=== PATIENT | male | born 1940 | race Caucasian/White ===

== ENCOUNTER 2019-11-09 07:54 | Outpatient (CLI) | payer MEDICARE, SELFPAY | END 2019-11-09 07:55 | disposition home or self-care (01) | LOC: WOUND 07:57 | PROVIDERS: Family Provider Nurse Practitioner Family; Visit Provider Surgery | DX: E11.622 Type 2 diabetes mellitus with other skin ulcer (principal); L97.822 Non-pressure chronic ulcer of other part of left lower leg with fat layer exposed | CPT/HCPCS: 11042; 11045; G0463 ==

== ENCOUNTER 2019-11-12 13:50 | Outpatient (CLI) | payer MEDICARE, SELFPAY | END 2019-11-12 13:51 | disposition home or self-care (01) | LOC: WOUND 13:52 | PROVIDERS: Family Provider Nurse Practitioner Family; Visit Provider Emergency Medicine | DX: Z51.89 Encounter for other specified aftercare (principal) | CPT/HCPCS: 29581 ==

== ENCOUNTER 2019-11-15 14:09 | Outpatient (CLI) | payer MEDICARE, SELFPAY | END 2019-11-15 14:10 | disposition home or self-care (01) | LOC: WOUND 14:10 | PROVIDERS: Family Provider Nurse Practitioner Family; Visit Provider Emergency Medicine | DX: E11.622 Type 2 diabetes mellitus with other skin ulcer (principal); L97.822 Non-pressure chronic ulcer of other part of left lower leg with fat layer exposed | CPT/HCPCS: 11042; 11045 ==

== ENCOUNTER 2019-11-21 14:59 | Outpatient (CLI) | payer MEDICARE, SELFPAY ==
--- NOTE | 2019-11-21 15:05 | USCV_ITS ---
Brennon Dueñas Age: 79 Gender: M : 1940 Exam Date: 11/21/2019 15:29 Ordering Phys: Krzysztof Goldsmith MD Technologist: CALIXTO SIDDIQI Exam Location: [facility] [place] Indication: HISTORY: left leg non healing ulcer PROCEDURES: Bilateral duplex Venous Insufficiency study of the Deep and Superficial systems was carried out according to usual protocol with the patient in supine positon for deep system and dependent position for the superficial system. FINDINGS: Negative for DVT and superficial thrombus. No reflux noted in right or left leg. vessel diameters are noted above. PTV not scanned on left due to bandages in place CONCLUSIONS No evidence of DVT in the above-mentioned identifiable veins. No significant venous reflux was noted either in the superficial or deep veins Venous dimensions and the depth from the surface are as mentioned above Dr Waldo Elise MD [facility] (Electronically Signed) Final Date: 21 November 2019 20:14 S
== END 2019-11-21 15:00 | disposition home or self-care (01) ==
LOC: RAD 15:03
PROVIDERS: Family Provider Nurse Practitioner Family; Visit Provider Surgery
DX: M79.605 Pain in left leg (principal); L97.929 Non-pressure chronic ulcer of unspecified part of left lower leg with unspecified severity
CPT/HCPCS: 93970

== ENCOUNTER 2019-11-22 13:05 | Outpatient (CLI) | payer MEDICARE, SELFPAY | END 2019-11-22 13:06 | disposition home or self-care (01) | LOC: WOUND 13:09 | PROVIDERS: Family Provider Nurse Practitioner Family; Visit Provider Nurse Practitioner Family | DX: E11.622 Type 2 diabetes mellitus with other skin ulcer (principal); L97.822 Non-pressure chronic ulcer of other part of left lower leg with fat layer exposed; I73.9 Peripheral vascular disease, unspecified | CPT/HCPCS: 11042; 93923 ==

== ENCOUNTER 2019-11-22 14:01 | Outpatient (CLI) | payer MEDICARE, SELFPAY ==
--- NOTE | 2019-11-22 14:09 | USCV_ITS ---
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
== END 2019-11-22 14:02 | disposition home or self-care (01) ==
LOC: RAD 14:06
PROVIDERS: PCP Nurse Practitioner Family; Visit Provider Surgery
DX: I73.9 Peripheral vascular disease, unspecified (principal)
CPT/HCPCS: 93923

== ENCOUNTER 2019-11-29 09:10 | Outpatient (CLI) | payer MEDICARE, SELFPAY | END 2019-11-29 09:11 | disposition home or self-care (01) | LOC: WOUND 09:13 | PROVIDERS: PCP Nurse Practitioner Family; Visit Provider Emergency Medicine | DX: E11.622 Type 2 diabetes mellitus with other skin ulcer (principal); L97.822 Non-pressure chronic ulcer of other part of left lower leg with fat layer exposed | CPT/HCPCS: 11042 ==

== ENCOUNTER 2019-12-06 09:57 | Outpatient (CLI) | payer MEDICARE, SELFPAY | END 2019-12-06 09:58 | disposition home or self-care (01) | LOC: WOUND 10:00 | PROVIDERS: PCP Nurse Practitioner Family; Visit Provider Thoracic Surgery (Cardiothoracic Vascular Surgery) | DX: E11.621 Type 2 diabetes mellitus with foot ulcer (principal); L97.822 Non-pressure chronic ulcer of other part of left lower leg with fat layer exposed; I87.2 Venous insufficiency (chronic) (peripheral) | CPT/HCPCS: 29581 ==

== ENCOUNTER 2019-12-13 08:00 | Outpatient (CLI) | payer MEDICARE, SELFPAY | END 2019-12-13 08:01 | disposition home or self-care (01) | LOC: WOUND 08:01 | PROVIDERS: PCP Nurse Practitioner Family; Visit Provider Nurse Practitioner Family | DX: E11.622 Type 2 diabetes mellitus with other skin ulcer (principal); L97.821 Non-pressure chronic ulcer of other part of left lower leg limited to breakdown of skin | CPT/HCPCS: 99212; A6545 ==

== ENCOUNTER 2019-12-26 10:34 | Outpatient (CLI) | payer MEDICARE, SELFPAY | END 2019-12-26 10:35 | disposition home or self-care (01) | LOC: WOUND 10:35 | PROVIDERS: PCP Nurse Practitioner Family; Visit Provider Emergency Medicine | DX: I87.2 Venous insufficiency (chronic) (peripheral) (principal); L97.822 Non-pressure chronic ulcer of other part of left lower leg with fat layer exposed; S90.512A Abrasion, left ankle, initial encounter; X58.XXXA Exposure to other specified factors, initial encounter | CPT/HCPCS: 11042; 11045; 87070; 87077; 87176; 87186; 87205 ==

== ENCOUNTER 2019-12-28 13:31 | Outpatient (CLI) | payer MEDICARE, SELFPAY | END 2019-12-28 13:32 | disposition home or self-care (01) | LOC: WOUND 13:32 | PROVIDERS: PCP Nurse Practitioner Family; Visit Provider Surgery | DX: I87.2 Venous insufficiency (chronic) (peripheral) (principal); L97.822 Non-pressure chronic ulcer of other part of left lower leg with fat layer exposed | CPT/HCPCS: 29581 ==

== ENCOUNTER 2020-01-02 14:53 | Outpatient (CLI) | payer MEDICARE, SELFPAY | END 2020-01-02 14:54 | disposition home or self-care (01) | LOC: WOUND 14:54 | PROVIDERS: PCP Nurse Practitioner Family; Visit Provider Emergency Medicine | DX: E11.622 Type 2 diabetes mellitus with other skin ulcer (principal); L97.822 Non-pressure chronic ulcer of other part of left lower leg with fat layer exposed; L97.522 Non-pressure chronic ulcer of other part of left foot with fat layer exposed | CPT/HCPCS: 11042; 11045 ==

== ENCOUNTER 2020-01-09 13:50 | Outpatient (CLI) | payer MEDICARE, SELFPAY | END 2020-01-09 13:51 | disposition home or self-care (01) | LOC: WOUND 13:51 | PROVIDERS: PCP Nurse Practitioner Family; Visit Provider Emergency Medicine | DX: E11.622 Type 2 diabetes mellitus with other skin ulcer (principal); L97.822 Non-pressure chronic ulcer of other part of left lower leg with fat layer exposed; E11.621 Type 2 diabetes mellitus with foot ulcer; L97.522 Non-pressure chronic ulcer of other part of left foot with fat layer exposed | CPT/HCPCS: 11042 ==

== ENCOUNTER 2020-01-14 09:25 | Outpatient (CLI) | payer MEDICARE, SELFPAY | END 2020-01-14 09:26 | disposition home or self-care (01) | LOC: WOUND 09:27 | PROVIDERS: PCP Nurse Practitioner Family; Visit Provider Emergency Medicine | DX: E11.622 Type 2 diabetes mellitus with other skin ulcer (principal); L97.822 Non-pressure chronic ulcer of other part of left lower leg with fat layer exposed; E11.621 Type 2 diabetes mellitus with foot ulcer; L97.522 Non-pressure chronic ulcer of other part of left foot with fat layer exposed | CPT/HCPCS: 11042; 87070; 87077; 87176; 87186; 87205; L3260 ==

== ENCOUNTER 2020-01-21 13:52 | Outpatient (CLI) | payer MEDICARE, SELFPAY | END 2020-01-21 13:53 | disposition home or self-care (01) | LOC: WOUND 13:52 | PROVIDERS: PCP Nurse Practitioner Family; Visit Provider Nurse Practitioner Family | DX: E11.622 Type 2 diabetes mellitus with other skin ulcer (principal); L97.822 Non-pressure chronic ulcer of other part of left lower leg with fat layer exposed; E11.621 Type 2 diabetes mellitus with foot ulcer; L97.522 Non-pressure chronic ulcer of other part of left foot with fat layer exposed | CPT/HCPCS: 29581 ==

== ENCOUNTER 2020-01-28 09:31 | Outpatient (CLI) | payer MEDICARE, SELFPAY | END 2020-01-28 09:32 | disposition home or self-care (01) | LOC: WOUND 09:32 | PROVIDERS: PCP Nurse Practitioner Family; Visit Provider Nurse Practitioner Family | DX: E11.621 Type 2 diabetes mellitus with foot ulcer (principal); L97.522 Non-pressure chronic ulcer of other part of left foot with fat layer exposed | CPT/HCPCS: 11042 ==

== ENCOUNTER 2020-02-04 08:52 | Outpatient (CLI) | payer MEDICARE, SELFPAY | END 2020-02-04 08:53 | disposition home or self-care (01) | LOC: WOUND 08:53 | PROVIDERS: PCP Nurse Practitioner Family; Visit Provider Nurse Practitioner Family | DX: E11.621 Type 2 diabetes mellitus with foot ulcer (principal); L97.521 Non-pressure chronic ulcer of other part of left foot limited to breakdown of skin | CPT/HCPCS: 11042 ==

== ENCOUNTER 2020-02-11 08:51 | Outpatient (CLI) | payer MEDICARE, SELFPAY | END 2020-02-11 08:52 | disposition home or self-care (01) | LOC: WOUND 08:52 | PROVIDERS: PCP Nurse Practitioner Family; Visit Provider Nurse Practitioner Family | DX: E11.621 Type 2 diabetes mellitus with foot ulcer (principal); L97.522 Non-pressure chronic ulcer of other part of left foot with fat layer exposed | CPT/HCPCS: 97597 ==

== ENCOUNTER 2020-02-21 08:40 | Outpatient (RCR) | payer MEDICARE, SELFPAY | END 2020-03-01 23:59 | disposition home or self-care (01) | LOC: WOUND 08:40 | PROVIDERS: PCP Nurse Practitioner Family; Visit Provider Nurse Practitioner Family | DX: E11.621 Type 2 diabetes mellitus with foot ulcer (principal); L97.522 Non-pressure chronic ulcer of other part of left foot with fat layer exposed; L03.116 Cellulitis of left lower limb | CPT/HCPCS: 11042 ==

== ENCOUNTER 2020-02-21 10:24 | Outpatient (CLI) | payer MEDICARE, SELFPAY ==
--- NOTE | 2020-02-21 10:42 | XR_ITS ---
WS: [id number] CHEST 2 VIEWS HISTORY: COUGH , PNEUMONIA COMPARISON: 08/06/2010 Lungs: Hyperinflated lungs with benign granuloma on the LEFT. There is very minimal new interstitial thickening at the LEFT lung base. Cardiac size: Normal. Mediastinum/Aorta: Pulmonary arteries are dilated with rapid tapering. Mild atherosclerosis aorta. Bones: Mild anterior wedging of several thoracic vertebral bodies at the thoracolumbar junction. Exac t numbers cannot be determined. XR/XR chest 2V* [id number] IMPRESSION: 1. New minimal interstitial thickening at the LEFT base may be an area of pneu monitis. 2. Pulmonary hypertension. 3. Chronic emphysema.
== END 2020-02-21 10:25 | disposition home or self-care (01) ==
LOC: RADWPI 10:32
PROVIDERS: Family Provider Nurse Practitioner Family; PCP Nurse Practitioner Family; Visit Provider Nurse Practitioner Family
DX: R05 Cough (principal); I27.20 Pulmonary hypertension, unspecified; J43.9 Emphysema, unspecified
CPT/HCPCS: 71046

== ENCOUNTER 2020-02-22 10:14 | Outpatient (CLI) | payer MEDICARE, SELFPAY ==
--- NOTE | 2020-02-22 10:22 | XR_ITS ---
WS: [id number] Thoracic spine, 3 views, 02/22/2020 Clinical Data: OSTEOPOROSIS Comparison: None. Findings: There is wedging of multiple thoracic vertebral bodies, probably all the vertebral bodies from T6 thr ough T12 with the exception of T8. However the loss of vertebral body height is central and approxim ately 25% or less. This implies these are chronic fractures rather than acute. Vertebral bodies T1 an d T2 are not well seen. 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 The disc heights are normal. The paravertebral regions are unremarkable. Diffuse osteoporosis is present. XR/XR thoracic spine 2V [id number] Impression: 1. Multiple thoracic vertebral bodies which have lost height but no definite ac willem thoracic vertebral body fracture is seen. 2. Diffuse osteoporosis.
--- NOTE | 2020-02-22 10:22 | XR_ITS ---
WS: [id number] Lumbar spine, AP and lateral, 02/22/2020 Clinical Data: OSTEOPOROSIS Comparison: None. Findings: The patient has vertebroplasty cement in L2 and L3. There is loss of vertebral body height of L1, L2 and L3. There is also loss of vertebral body height of the lower thoracic vertebral bodies. The disc heights are normal. No definite new compression fractures are seen. Diffuse osteoporosis is noted. Degenerative change of the T11-T12 and L1-L3 vertebral bodies is present. The transverse processes and SI joints show no ab normalities. There is a large amount of fecal material throughout the colon. There is calcification o f the wall of the abdominal aorta but no aneurysm. XR/XR lumbar spine 2-3V* [id number] Impression: 1. Multiple lower thoracic and lumbar vertebral body compression fractures, but no definite new fracture is seen. 2. Vertebroplasty cement in the vertebral bodies L2 and L3. 3. Diffuse osteoporosis.
== END 2020-02-22 10:15 | disposition home or self-care (01) ==
LOC: RADWPI 10:19
PROVIDERS: Family Provider Nurse Practitioner Family; PCP Nurse Practitioner Family; Visit Provider Nurse Practitioner Family
DX: M81.0 Age-related osteoporosis without current pathological fracture (principal)
CPT/HCPCS: 72070; 72100

== ENCOUNTER 2020-02-28 08:57 | Outpatient (CLI) | payer MEDICARE, SELFPAY | END 2020-02-28 08:58 | disposition home or self-care (01) | LOC: WOUND 08:58 | PROVIDERS: Family Provider Nurse Practitioner Family; PCP Nurse Practitioner Family; Visit Provider Nurse Practitioner Family | DX: E11.621 Type 2 diabetes mellitus with foot ulcer (principal); L97.522 Non-pressure chronic ulcer of other part of left foot with fat layer exposed | CPT/HCPCS: 11042 ==

== ENCOUNTER 2020-03-06 09:15 | Outpatient (CLI) | payer MEDICARE, SELFPAY ==
--- NOTE | 2020-03-06 | XR_ITS ---
WS: [id number] Left foot, 03/06/2020 Clinical Data: PAIN, REDNESS, NON HEALING ULCER Comparison: None. Findings: There is an erosion of the ungual tuft of the distal phalanx of the left great toe. There is loss of soft tissue and bone. This is suspicious for osteomyelitis. The remainder of the phalanges show no ab normalities. Tarsal bones and metatarsals are normal. There is a plantar spur and Achilles spur. The posterior tibial artery and anterior tibial arteries show calcifications in the noriega consistent with diabetes. No fractures or dislocations are seen. XR/XR foot LT min 3V* [id number] Impression: Erosion of the distal phalanx of the left great toe suspicious for osteomyeliti s.
== END 2020-03-06 09:16 | disposition home or self-care (01) ==
LOC: WOUND 09:16
PROVIDERS: Family Provider Nurse Practitioner Family; PCP Nurse Practitioner Family; Visit Provider Nurse Practitioner Family
DX: R52 Pain, unspecified (principal); L53.9 Erythematous condition, unspecified; E11.621 Type 2 diabetes mellitus with foot ulcer; L97.526 Non-pressure chronic ulcer of other part of left foot with bone involvement without evidence of necrosis
CPT/HCPCS: 11042; 73630

== ENCOUNTER 2020-03-13 07:09 | Outpatient (CLI) | payer MEDICARE, SELFPAY ==
--- NOTE | 2020-03-13 07:14 | MR_ITS ---
WS: [id number] MRI LUMBAR SPINE NONCONTRAST TECHNIQUE: Sagittal T1, T2 and STIR imaging. Axial T1 and T2 imaging. CLINICAL INFORMATION: LOW BACK PAIN;SPINAL STENOSIS LUMBAR REGION W/NEUROGENIC CLA COMPARISON: None. FINDINGS: Mild lumbar curve. Chronic compression fractures L2 and L3 with vertebroplasty changes. Acute biconca ve compression at L5 with edema. Loss of approximately 40% vertebral body height. Minimal retropulsio n posterior superior cortex. Chronic anterior wedging with compression at T12 with mild chronic retro pulsion of the posterior superior cortex. L1-L2: Mild disc bulging with slight narrowing of the subarticular recess. Moderate facet arthropathy . Foramen are patent. L2-L3: Disc osteophyte complex with endplate ridging. Narrowing subarticular recess bilaterally with slight impingement traversing right L3 nerve root. Mild central canal stenosis. Moderate facet arthro elva. Mild right foraminal narrowing. L3-L4: Mild disc bulging with osteophytic ridging. Mild to moderate central canal stenosis. Impingeme nt traversing L4 nerve roots bilaterally. Mild left greater than right foraminal narrowing. Moderate facet arthropathy. L4-L5: Mild disc bulging in combination with facet arthropathy and ligamentum flavum hypertrophy resu lts in severe central canal stenosis. Impingement on the traversing L5 nerve roots bilaterally. Moder ate facet arthropathy. Moderate left and mild right foraminal narrowing. L5-S1: Tiny central and right pericentral disc protrusion impinges the traversing right greater than left S1 nerve roots in the subarticular recess. Mild left greater than right foraminal narrowing. Sma ll central disc protrusion at C6-7 with mild central canal stenosis. Visualized pelvic bony structures: Normal. Paravertebral soft tissues: Normal. MR/MR lumbar spine wo con* [id number] IMPRESSION: 1. Acute biconcave compression L5 vertebral body with loss of 40% vertebral christina dy height and diffuse edema. Mild retropulsion of the posterior superior cortex . 2. Severe central canal stenosis L4-5 due to disc bulging with facet arthropat hy and ligamentum flavum hypertrophy. Impingement traversing L5 nerve roots kira aterally. 3. Chronic compression with anterior wedging at T12, L2, and L3. Vertebroplast y changes at L2 and L3. 4. Mild to moderate central canal stenosis L3-4 due to disc bulging with facet arthropathy. Impingement traversing L4 nerve roots left greater than right. 5. Central and right pericentral disc protrusion L5-S1 impinges the traversing right S1 nerve root. 6. Moderate left foraminal narrowing L4-5. 7. Small central disc protrusion C6-7 with mild central canal stenosis seen on the head of [employer] [facility].
== END 2020-03-13 07:10 | disposition home or self-care (01) ==
PROVIDERS: Family Provider Nurse Practitioner Family; PCP Nurse Practitioner Family
DX: M48.062 Spinal stenosis, lumbar region with neurogenic claudication (principal); M48.061 Spinal stenosis, lumbar region without neurogenic claudication; S32.050A Wedge compression fracture of fifth lumbar vertebra, initial encounter for closed fracture; M50.223 Other cervical disc displacement at C6-C7 level; M51.27 Other intervertebral disc displacement, lumbosacral region; X58.XXXA Exposure to other specified factors, initial encounter
CPT/HCPCS: 72148

== ENCOUNTER 2020-03-13 08:29 | Outpatient (CLI) | payer MEDICARE, SELFPAY | END 2020-03-13 08:30 | disposition home or self-care (01) | LOC: WOUND 08:30 | PROVIDERS: Family Provider Nurse Practitioner Family; PCP Nurse Practitioner Family; Visit Provider Nurse Practitioner Family | DX: E11.621 Type 2 diabetes mellitus with foot ulcer (principal); L97.524 Non-pressure chronic ulcer of other part of left foot with necrosis of bone | CPT/HCPCS: 11042 ==

== ENCOUNTER → 2020-03-17 13:24 | Outpatient (BNVA) | payer MEDICARE, SELFPAY | PROVIDERS: Family Provider Nurse Practitioner Family; PCP Nurse Practitioner Family; Visit Provider Podiatrist Foot & Ankle Surgery | DX: M79.672 Pain in left foot (principal); M86.8X7 Other osteomyelitis, ankle and foot | CPT/HCPCS: 73630; 87635 ==

== ENCOUNTER 2020-03-19 05:33 | Day surgery (SDC) | payer MEDICARE, SELFPAY ==
[2020-03-19 06:11] VITALS: BP 134/79; PULSE 83; RESP 18; TEMP 37.1; O2SAT 97
[2020-03-19] MEDS: sodium chloride 0.9% 1,000 ML 30 ML IV (06:23)
[2020-03-19 06:25] LABS: Glucose Point of Care 126 mg/dL (70-110)
--- NOTE | 2020-03-19 06:37 | ANES.PREANE2 ---
Pre-Anesthetic Assessment Pre-Anesthetic Assessment: Height/Weight: Height 1.85 m Weight 89.358 kg Temp Pulse Resp BP Pulse Ox 98.8 F 83 18 134/79 97 03/19/20 06:11 03/19/20 06:11 03/19/20 06:11 03/19/20 06:11 03/19/20 06:11 Preop Diagnosis: Osteomyelitis left hallux Proposed Procedure: Operation Date: 03/19/20 07:00 Proposed Procedures p Partial Amputation Left Hallux 11997 L97.524(Left) - Jovani Huerta DPM Familial anesthetic complications: None Was Beta Lauren taken within 24 hours: N/A Last intake: Intake Last Liquid Date 03/18/20 Last Liquid Time 20:00 Last Solid Date 03/18/20 Last Solid Time 20:00 Social: Social History: No alcohol and No tobacco Comment: Former smoker Exam: Pre-Anes Outpt Exam: alert, oriented x 3 and regular rate & rhythm Additional Exam Findings (including area of procedure): coarse breath sounds b/l with occassional wheeze Airway: Cervical ROM: WNL MP: 3 Dentition: False Pulmonary: Pulmonary: COPD and Cough (Chronic cough with mucus production) Metabolic: Metabolic: DM Anesthetic Plan: ASA status: 3 Anesthesia: MAC Risk of > 500 ml blood loss (7ml/kg in children): No Meds/Allergies Current Medications: Current Medications Generic Name Dose Route Start Last Admin Trade Name Freq PRN Reason Stop Dose Admin Sodium Chloride 1,000 mls @ 30 ml s/hr 03/19/20 06:00 03/19/20 06:23 Sodium Chloride 0.9% IV 03/20/20 05:59 30 mls/hr .Q24H YARY Administration PFSH Anesthesia PFSH: Medical History COPD (chronic obstructive pulmonary disease) Diabetic polyneuropathy associated with type 2 diabetes mellitus Hypertension Venous insufficiency Social History (Updated 03/17/20 @ 13:37 by Gloria Peguero LPN) Smoking and tobacco status: former smoker Household members: none Marital status: / Data Anesthesia Other Labs: Laboratory Results - last 48 hr 03/19/20 06:20 POC Glucose 126 Cardiac Studies: No Data to Display
--- NOTE | 2020-03-19 06:39 | W.PM.OPSUD ---
Surgery/Procedure H&P Update DATE OF PROCEDURE: March 19, 2020 DATE H&P PERFORMED: 03/07/20 H&P UPDATE INFORMATION: I have reviewed H&P completed within last 30 days, I have examined patient prior to procedure, No changes to prior documentation and H&P is in [facility] [place] EMR on date indicated PREOP DIAGNOSIS: Osteomyelitis left hallux PLANNED PROCEDURE: Operation Date: 03/19/20 07:00 Proposed Procedures p Partial Amputation Left Hallux 00786 L97.524(Left) - Jovani Huerta DPM
--- NOTE | 2020-03-19 06:49 | P.OP_ITS ---
Operative Report Date of procedure: March 19, 2020 Pre-op Diagnosis: Osteomyelitis left hallux Post-op diagnosis: same Post-op Findings: Devitalized soft tissue and bone left hallux distal phalanx. Procedure Done: Partial Amputation Left Hallux Implants: 3-0 nylon and 4-0 nylon Specimens removed/disposition: Left distal hallux and distal phalanx sent to microbiology for Gram stain and culture Pathology: none sent Surgeon: Jovani Huerta D.P.M. Research Interviewer: Gómez Anesthesia: MAC Estimated blood loss: 10 mL Tourniquet time: No tourniquet utilized IV fluids: None Urine output: None Complications: None Findings: Devitalized soft tissue and bone left distal hallux Condition: stable Disposition: PACU Brief History: Patient [place] to podiatry clinic [place] [facility] [place] with concerns of osteomyelitis of the distal phalanx of the left hallux. Patient preferred not to go medicine and surgical debridement route he had concerns for PICC line over 6 weeks and preferred not to be treated with IV antibiotics. Recommended partial amputation of the left hallux secondary to osteomyelitis at the distal phalanx. Risks include pain, bleeding, numbness, infection, need for higher levels of amputation and antibiotics. Also risk for transfer pressure and transfer lesions. Procedure: Under mild sedation the patient was brought to the operating room and placed on the operating table in supine position. A timeout was performed. Anesthesia was then administered by the anesthesia service. Local anesthesia was injected by myself consisting of 30 cc of 0.5% Marcaine plain and a left White block fashion. Well-padded pneumatic tourniquet applied to the left ankle however this was never inflated or utilized throughout the duration of the procedure. Left lower extremity was scrubbed, prepped and draped utilizing normal aseptic technique. Attention was directed to the left distal hallux where a fishmouth incision was carried out distal to the hallux interphalangeal joint full-thickness down to bone and the distal phalanx of the left hallux was disarticulated at the interphalangeal joint sharply and passed from the operative field, this was sent to microbiology for Gram stain and culture. Incision site was irrigated with copious amounts of sterile saline solution. Head of the proximal phalanx was viable with appropriate color intensity, no purulent drainage encountered at this level there was healthy skin margins at this level, bleeders were ligated and cauterized as necessary. Extensor and flexor tendons transected at their proximal margin under traction. Further irrigation was performed with copious amounts of saline solution. Incision was closed with combination of 3-0 and 4-0 Vicryl simple interrupted sutures. Incision site was dressed as well as dorsal of the foot wound dressed with Adaptic, sterile 4 x 4, Kerlix and Lenard wrap as well as cast padding and Lenard wrap of the leg. Patient tolerated the procedure well and was transferred to the PACU with vital signs stable and vascular status intact. Following a period of postoperative monitoring he will be discharged home and is to remain limited weightbearing to the left foot with postop shoe at all times and keep his postoperative dressings clean, dry and intact, he is to elevate his left foot while at rest.
[2020-03-19 06:50] VITALS: PULSE 83; RESP 18; O2SAT 94
[2020-03-19 07:00] VITALS: PULSE 88
[2020-03-19 07:41] VITALS: BP 137/72; PULSE 80; RESP 18; TEMP 36.6; O2SAT 92
--- NOTE | 2020-03-19 07:55 | XR_ITS ---
WS: [id number] LEFT FOOT: 3 VIEW(S) TECHNIQUE: AP, oblique and lateral. HISTORY: post op COMPARISON: 03/17/2020 Interval removal distal phalanx first toe. Small erosion involving the proximal phalanx along its lat eral aspect. Normal tarsal/metatarsal alignment. Soft tissue edema surrounding the first toe at the amputation site. No air within the soft tissues. XR/XR foot LT min 3V* [id number] IMPRESSION: 1. Prior amputation distal phalanx first toe. 2. Persistent erosion at the articular surface of the proximal phalanx first t oe. Cannot completely exclude osteomyelitis but no change since 03/17/2020.
[2020-03-19 07:58] VITALS: BP 125/63; PULSE 78; RESP 18; O2SAT 97
--- NOTE | 2020-03-19 21:05 | ANE.PACU2 ---
Inpatient post-anesthesia follow up: Airway intact: Yes Vital signs: Temperature 97.9 F Pulse Rate 78 Respiratory Rate 18 Blood Pressure 125/63 Pulse Oximetry 97 Oxygen Delivery Me thod Room Air Oxygen Flow Rate Fraction of Inspir ed Oxygen Hydration adequate: Yes Nausea and vomiting: No Pain level: 2 Mental status: Baseline
--- NOTE | 2020-03-21 13:06 | XR_ITS ---
WS: [id number] SCREENING DEXA SCAN [employer] CLINICAL INFORMATION: WEDGE COMPRESSION FRACTURE OF FIFTH LUMBAR VERTEBRA, INITIAL COMPARISON: None. FINDINGS: Left femoral neck bone mineral density measures 0.702 g/cm2. This corresponds to a T score of -2.8 an d Z score of -1.7. Right femoral neck bone mineral density measures 0.777 g/cm2. This corresponds to a T score -2.3of an d Z score of -1.1. Mean femoral neck bone mineral density measures 0.739 g/cm2. This corresponds to a T score of -2.5 an d Z score of -1.4. XR/XR DEXA axial skeleton* [id number] IMPRESSION: Osteoporosis in the femoral necks. Patient's FRAX calculated 10 year probability for major osteoporotic fracture i s 13.1 % and osteoporotic hip fracture is 4.8%.
== END 2020-03-19 08:15 | disposition home or self-care (01) ==
LOC: OR 08:02 → RADWPI 03-21 13:19 → OR 05-01 11:13
PROVIDERS: PCP Nurse Practitioner Family; Visit Provider Podiatrist Foot & Ankle Surgery
PROC: (CPT 28825; principal; 2020-03-19 07:00)
DX: M86.8X7 Other osteomyelitis, ankle and foot (principal); J44.9 Chronic obstructive pulmonary disease, unspecified; E11.42 Type 2 diabetes mellitus with diabetic polyneuropathy; Z87.891 Personal history of nicotine dependence; Z79.4 Long term (current) use of insulin; I10 Essential (primary) hypertension
CPT/HCPCS: 28825; 12345; 36416; 73630; 77080; 82962; 87070; 87077; 87176; 87205; 94640; J0690; J2704; J3010; J3490; J7030; J7611; L3260

== ENCOUNTER 2020-03-21 09:00 | Outpatient (CLI) | payer MEDICARE, SELFPAY | END 2020-03-21 09:01 | disposition home or self-care (01) | LOC: RADWPI 05-01 11:12 | PROVIDERS: PCP Nurse Practitioner Family | DX: S32.050A Wedge compression fracture of fifth lumbar vertebra, initial encounter for closed fracture (principal); M81.6 Localized osteoporosis [Lequesne] | CPT/HCPCS: 77080; 87077 ==

== ENCOUNTER 2020-03-26 10:50 | Outpatient (CLI) | payer MEDICARE, SELFPAY ==
[2020-03-26 12:27] LABS: Testosterone Total 233.8 ng/dL (193-740)
[2020-04-02 20:18] LABS: Testosterone, Free 26.7 pg/mL (6.0-73.0)
== END 2020-03-26 10:51 | disposition home or self-care (01) ==
LOC: LAB 10:56
PROVIDERS: PCP Nurse Practitioner Family; Visit Provider Neurological Surgery
DX: S32.050A Wedge compression fracture of fifth lumbar vertebra, initial encounter for closed fracture (principal); X58.XXXA Exposure to other specified factors, initial encounter
CPT/HCPCS: 83003; 84402; 84403; 97760; L0637

== ENCOUNTER 2020-04-16 11:01 | Outpatient (CLI) | payer MEDICARE, SELFPAY | END 2020-04-16 11:02 | disposition home or self-care (01) | LOC: SPT 11:03 | PROVIDERS: PCP Nurse Practitioner Family; Visit Provider Podiatrist Foot & Ankle Surgery | DX: Z47.89 Encounter for other orthopedic aftercare (principal) | CPT/HCPCS: 97760; L4361 ==

== ENCOUNTER → 2020-04-30 10:49 | Outpatient (BNVA) | payer MEDICARE, SELFPAY | PROVIDERS: PCP Nurse Practitioner Family; Visit Provider Podiatrist Foot & Ankle Surgery | DX: Z98.890 Other specified postprocedural states (principal); L97.524 Non-pressure chronic ulcer of other part of left foot with necrosis of bone; L97.522 Non-pressure chronic ulcer of other part of left foot with fat layer exposed; E11.42 Type 2 diabetes mellitus with diabetic polyneuropathy | CPT/HCPCS: 73630; 87635 ==

== ENCOUNTER 2020-05-05 09:51 | Day surgery (SDC) | payer MEDICARE, SELFPAY ==
[2020-05-01 12:31] VITALS: BMI 25.9
[2020-05-05 10:08] VITALS: BP 117/61; PULSE 60; RESP 16; TEMP 36.8; O2SAT 99
[2020-05-05] MEDS: sodium chloride 0.9% 1,000 ML 30 ML IV (10:33)
[2020-05-05 10:35] LABS: Glucose Point of Care 127 mg/dL (70-110)
--- NOTE | 2020-05-05 10:36 | ANES.PREANE2 ---
Pre-Anesthetic Assessment Pre-Anesthetic Assessment: Height/Weight: Height 1.85 m Weight 89.358 kg Temp Pulse Resp BP Pulse Ox 98.3 F 60 16 117/61 99 05/05/20 10:08 05/05/20 10:08 05/05/20 10:08 05/05/20 10:08 05/05/20 10:08 Preop Diagnosis: Osteomyelitis left hallux proximal phalanx Proposed Procedure: Operation Date: 05/05/20 12:00 Proposed Procedures p Left hallux amputation 50325 L97.524(Left) - Jovani Huerta DPM Familial anesthetic complications: None Was Beta Lauren taken within 24 hours: N/A Last intake: Intake Last Liquid Date 05/04/20 Last Liquid Time 23:00 Last Solid Date 05/04/20 Last Solid Time 20:00 Social: Social History: No alcohol and No tobacco Exam: Pre-Anes Outpt Exam: alert, oriented x 3, clear to auscultation bilaterally and regular rate & rhythm Airway: Cervical ROM: WNL MP: 3 Dentition: False Pulmonary: Pulmonary: COPD Metabolic: Metabolic: DM Anesthetic Plan: ASA status: 3 Anesthesia: MAC Risk of > 500 ml blood loss (7ml/kg in children): No Meds/Allergies Current Medications: Current Medications Generic Name Dose Route Start Last Admin Trade Name Freq PRN Reason Stop Dose Admin Sodium Chloride 1,000 mls @ 30 ml s/hr 05/05/20 10:15 05/05/20 10:33 Sodium Chloride 0.9% IV 05/06/20 10:14 30 mls/hr .Q24H YARY Administration PFSH Anesthesia PFSH: Medical History COPD (chronic obstructive pulmonary disease) Diabetic polyneuropathy associated with type 2 diabetes mellitus Hypertension Venous insufficiency Social History Smoking and tobacco status: former smoker Household members: none Marital status: / Data Anesthesia Other Labs: Laboratory Results - last 48 hr 05/05/20 10:26 POC Glucose 127 H Cardiac Studies: No Data to Display
[2020-05-05] MEDS: ipratropium 0.5 mg/2.5 mL Neb INHALATION (10:47)
[2020-05-05 10:50] VITALS: PULSE 66; RESP 17; O2SAT 98
[2020-05-05 10:51] VITALS: PULSE 69
--- NOTE | 2020-05-05 12:00 | W.PM.OPSUD ---
Surgery/Procedure H&P Update DATE OF PROCEDURE: May 05, 2020 DATE H&P PERFORMED: 04/30/20 H&P UPDATE INFORMATION: I have reviewed H&P completed within last 30 days, I have examined patient prior to procedure, No changes to prior documentation and H&P is in [facility] [place] [place] EMR on date indicated PREOP DIAGNOSIS: Osteomyelitis left hallux proximal phalanx PLANNED PROCEDURE: Operation Date: 05/05/20 12:00 Proposed Procedures p Left hallux amputation 64211 L97.524(Left) - Jovani Huerta DPM
--- NOTE | 2020-05-05 12:00 | PM.OP ---
Operative Report Date of procedure: May 05, 2020 Pre-op Diagnosis: Osteomyelitis left hallux proximal phalanx Post-op diagnosis: same Procedure Done: Left hallux amputation [id number] Implants: 4-0 Vicryl, 3-0 nylon Specimens removed/disposition: Left hallux proximal phalanx sent to microbiology for Gram stain and culture. Pathology: none sent Surgeon: Jovani Huerta D.P.M. Experience Planning Strategist: Con Anesthesia: MAC Estimated blood loss: 3 mL Tourniquet time: No tourniquet utilized IV fluids: None Urine output: None Complications: None Findings: Necrotic head of the proximal phalanx left hallux. Decreased bleeding at skin and deep left hallux amputation site Condition: stable Disposition: PACU Brief History: Patient presents with exposed proximal phalanx head of the left hallux. He does have diabetes. Underlying peripheral arterial disease. I recommended amputation at the metatarsophalangeal joint. Risks include pain, bleeding, numbness, infection, surgical site dehiscence, delayed healing, nonhealing, extension of osteomyelitis into the first metatarsal, transfer pressure and transfer lesions and need for higher level of amputation. Patient was seen and evaluated bedside in the preop holding, I initialed his left foot. Informed consent is signed by myself and the patient. Once again reviewed the risks of undergoing amputation of the left hallux at the metatarsophalangeal joint my biggest concern is that he has poor vascular perfusion which will delay his healing and ultimately could be a underlying cause of nonhealing. Patient is agreeable wishes to proceed. No guarantees written, expressed or implied. Procedure: Under mild sedation the patient was brought to the operating room and placed on the operating table in supine position. A timeout was performed. Anesthesia was administered by the anesthesia service. Local anesthesia injected by myself consisting of 30 cc of 0.5% Marcaine plain and a left White block fashion. A well-padded pneumatic tourniquet was applied to the left ankle however this was never inflated or utilized throughout the duration of procedure. Left lower extremity was scrubbed, prepped and draped utilizing normal aseptic technique. Attention was directed to the left first metatarsophalangeal joint, was able to visualize the head of the proximal phalanx of the left hallux this was dusky and soft with necrosis and devitalized tissue. There is no purulent drainage, no proximal lymphangitic streaking. Fishmouth incision was made at the first metatarsal phalangeal joint of the left foot full-thickness and the left hallux was disarticulated and passed from the operative field this will be sent to microbiology for Gram stain and culture. Incision site was flushed with copious amounts of sterile saline solution. Bleeders were ligated as necessary. There was decreased bleeding at the skin margin as well as deep within the incision, the level of amputation was viable with healthy tissue my biggest concern is underlying microvascular disease and potential for delayed healing and nonhealing. I did explain this to the patient preoperatively however he was not ready for higher level of amputation at this time wishes to proceed at this level today. Incision was closed utilizing 4-0 Vicryl deep subcutaneous tissue reapproximation and 3-0 nylon at skin reapproximation without tension. Margins were well coapted without tension. Incision site was dressed with Adaptic, sterile 4 x 4, Kerlix and Lenard wrap followed by application of postop shoe. Patient was transferred to the PACU with vital signs stable and vascular status intact. Following a period of postoperative monitoring he will be discharged home is to limit his weightbearing utilize a postop shoe, keep his dressings clean, dry and intact. Follow next week at currently appointed time was given my cell phone number to contact me with questions or concerns. He is to continue his oral doxycycline.
[2020-05-05 12:42] VITALS: BP 94/49; PULSE 63; RESP 18; TEMP 36.5; O2SAT 95
--- NOTE | 2020-05-05 12:43 | XR_ITS ---
WS: [id number] LEFT FOOT: 2 VIEW(S) TECHNIQUE: AP and lateral. HISTORY: post op COMPARISON: 04/30/2020 Since the prior examination the proximal phalanx of the first toe has been surgically removed. Now th e entire first toe has been surgically removed. Postoperative air and edema in the soft tissues surro unding the first metatarsal head. There are a few tiny osseous densities within the soft tissue. Normal tarsal/metatarsal alignment. Osteopenia. XR/XR foot LT 2V [id number] IMPRESSION: Interval resection proximal phalanx first toe since 04/30/2020. Postoperative s oft tissue changes are noted surrounding the first metatarsal head.
--- NOTE | 2020-05-05 12:44 | ANE.PACU2 ---
Inpatient post-anesthesia follow up: Airway intact: Yes Vital signs: Temperature 98.3 F Pulse Rate 69 Respiratory Rate 17 Blood Pressure 117/61 Pulse Oximetry 98 Oxygen Delivery Me thod Room Air Oxygen Flow Rate Fraction of Inspir ed Oxygen Hydration adequate: Yes Nausea and vomiting: No Pain level: 1 Mental status: Baseline
[2020-05-05 13:19] VITALS: BP 132/59; PULSE 68; RESP 18; TEMP 36.5; O2SAT 98
== END 2020-05-05 13:56 | disposition home or self-care (01) ==
PROVIDERS: PCP Nurse Practitioner Family; Visit Provider Podiatrist Foot & Ankle Surgery
PROC: (CPT 28820; principal; 2020-05-05 12:00)
DX: M86.8X7 Other osteomyelitis, ankle and foot (principal); J44.9 Chronic obstructive pulmonary disease, unspecified; E11.42 Type 2 diabetes mellitus with diabetic polyneuropathy; I10 Essential (primary) hypertension; Z79.4 Long term (current) use of insulin
CPT/HCPCS: 28820; 12345; 36416; 73620; 82962; 87070; 87075; 87176; 87205; 94640; 96365; J0690; J2704; J3010; J3490; J7030; J7611; J7644

== ENCOUNTER → 2020-05-21 08:50 | Outpatient (BNVA) | payer MEDICARE, SELFPAY | PROVIDERS: PCP Nurse Practitioner Family; Visit Provider Podiatrist Foot & Ankle Surgery | DX: Z98.890 Other specified postprocedural states (principal) | CPT/HCPCS: 73630 ==

== ENCOUNTER 2020-05-21 12:02 | Outpatient (CLI) | payer MEDICARE, SELFPAY ==
--- NOTE | 2020-05-21 12:00 | USCV_ITS ---
Brennon Dueñas Age: 80 Gender: M : 1940 Exam Date: 05/21/2020 12:20 Ordering Phys: Jovani Huerta DPM Technologist: Michaelle Siegel Exam Location: [facility] [place] Indication: Check for DVT HISTORY: DVT. PROCEDURES: Venous duplex imaging was performed in only the left lower extremity. The following venous structures were evaluated: common femoral vein, profunda vein, proximal portion of the greater saphenous vein, superficial femoral vein, and the popliteal vein. In addition, the posterior tibial and peroneal trunk were evaluated. Serial compression, augmentation maneuvers, and spectral Doppler flow evaluation were performed. FINDINGS: Normal 2-D Doppler and augmentation and compressibility throughout the lower extremity venous structures. Additional imaging through the proximal calf veins also reveals no thrombus. Limited evaluation of the greater saphenous vein is patent with no thrombus. CONCLUSIONS No DVT left lower extremity. Dr. Zandra Davila DO (Electronically Signed) Final Date: 21 May 2020 13:18 S
== END 2020-05-21 12:03 | disposition home or self-care (01) ==
LOC: RAD 12:06
PROVIDERS: PCP Nurse Practitioner Family; Visit Provider Podiatrist Foot & Ankle Surgery
DX: R60.0 Localized edema (principal)
CPT/HCPCS: 93971

== ENCOUNTER → 2020-07-23 14:12 | Outpatient (BNVA) | payer MEDICARE, SELFPAY | PROVIDERS: PCP Nurse Practitioner Family; Visit Provider Podiatrist Foot & Ankle Surgery | DX: L97.522 Non-pressure chronic ulcer of other part of left foot with fat layer exposed (principal); Z89.429 Acquired absence of other toe(s), unspecified side; R60.0 Localized edema; Z46.89 Encounter for fitting and adjustment of other specified devices; L97.222 Non-pressure chronic ulcer of left calf with fat layer exposed; Z98.890 Other specified postprocedural states; L97.524 Non-pressure chronic ulcer of other part of left foot with necrosis of bone | CPT/HCPCS: 73630; 87635; 97760; L4361 ==

== ENCOUNTER 2020-07-23 15:41 | Outpatient (CLI) | payer MEDICARE, SELFPAY | END 2020-07-23 15:42 | disposition home or self-care (01) | LOC: SPT 15:42 | PROVIDERS: PCP Nurse Practitioner Family; Visit Provider Podiatrist Foot & Ankle Surgery | DX: Z46.89 Encounter for fitting and adjustment of other specified devices (principal); L97.222 Non-pressure chronic ulcer of left calf with fat layer exposed; L97.522 Non-pressure chronic ulcer of other part of left foot with fat layer exposed; Z98.890 Other specified postprocedural states; L97.524 Non-pressure chronic ulcer of other part of left foot with necrosis of bone; Z89.429 Acquired absence of other toe(s), unspecified side | CPT/HCPCS: 87635; 97760; L4361 ==

== ENCOUNTER 2020-07-25 06:49 | Day surgery (SDC) | payer MEDICARE, SELFPAY ==
[2020-07-24 13:43] VITALS: BMI 26.1
--- NOTE | 2020-07-25 08:03 | W.PM.OPSUD ---
Surgery/Procedure H&P Update DATE OF PROCEDURE: July 25, 2020 DATE H&P PERFORMED: 07/23/20 H&P UPDATE INFORMATION: I have reviewed H&P completed within last 30 days, I have examined patient prior to procedure, No changes to prior documentation and H&P is in [facility] EMR on date indicated PREOP DIAGNOSIS: Osteomyelitis left first metatarsal PLANNED PROCEDURE: Operation Date: 07/25/20 08:45 Proposed Procedures p partial first ray amputation 23316 L97.524(Not Applicable) - Jovani Huerta DPM
[2020-07-25 08:04] LABS: Glucose Point of Care 100 mg/dL (70-110)
[2020-07-25 08:13] VITALS: BP 152/78; PULSE 77; RESP 18; TEMP 36.2; O2SAT 98
--- NOTE | 2020-07-25 08:16 | ANES.PREANE2 ---
Pre-Anesthetic Assessment Pre-Anesthetic Assessment: Height/Weight: Height 1.85 m Weight 89.811 kg Temp Pulse Resp BP Pulse Ox 97.1 F L 77 18 152/78 98 07/25/20 08:13 07/25/20 08:13 07/25/20 08:13 07/25/20 08:13 07/25/20 08:13 Preop Diagnosis: Osteomyelitis left first metatarsal Proposed Procedure: Operation Date: 07/25/20 08:45 Proposed Procedures p partial first ray amputation 06353 L97.524(Not Applicable) - Jovani Huerta DPM Familial anesthetic complications: none Was Beta Lauren taken within 24 hours: N/A Was Clonidine taken within 24 hours: N/A Last intake: Intake Last Liquid Date 07/24/20 Last Liquid Time 17:00 Last Solid Date 07/24/20 Last Solid Time 17:00 Social: Social History: Tobacco and No alcohol Exam: Pre-Anes Outpt Exam: alert, oriented x 3 and regular rate & rhythm Additional Exam Findings (including area of procedure): coarse breath sounds b/l Airway: Cervical ROM: WNL MP: 2 Dentition: False Pulmonary: Pulmonary: COPD CV/HEM: CV/HEM: HTN Metabolic: Metabolic: DM Anesthetic Plan: ASA status: 3 Anesthesia: MAC Risk of > 500 ml blood loss (7ml/kg in children): No PFSH Anesthesia PFSH: Medical History COPD (chronic obstructive pulmonary disease) Diabetic polyneuropathy associated with type 2 diabetes mellitus Hypertension Venous insufficiency Social History Smoking and tobacco status: former smoker Household members: none Marital status: / Data Anesthesia Other Labs: Laboratory Results - last 48 hr 07/25/20 07:42 POC Glucose 100 Cardiac Studies: No Data to Display
--- NOTE | 2020-07-25 08:18 | PM.OP ---
Operative Report Date of procedure: July 25, 2020 Pre-op Diagnosis: Osteomyelitis left first metatarsal Post-op diagnosis: same Post-op Findings: Devitalized first metatarsal head and fibular and tibial sesamoids left foot Procedure Done: Urschel first ray amputation left foot 74085 Implants: 3-0 Vicryl 3-0 nylon 1 g of vancomycin powder Specimens removed/disposition: Left first metatarsal head sent to microbiology for Gram stain and culture Pathology: none sent Surgeon: Jovani Huerta D.P.M. Financial Legal Assistant: Caroline Anesthesia: MAC Estimated blood loss: Less than 5 mL Tourniquet time: 22 minutes IV fluids: None Urine output: None Complications: None Findings: Devitalized soft tissue and bone at the first metatarsal head with dusky gage appearance of the articular surfaces that was fragmented and free flapping. At the level of the osteotomy cortical bone was appropriate density, medullary bone had some purulence. Condition: stable Disposition: PACU Brief History: Patient is a pleasant 80-year-old diabetic male with osteomyelitis of the first metatarsal left foot. In efforts to preserve foot and function I recommended partial first ray amputation risks include pain, bleeding, numbness, infection, residual osteomyelitis need for antibiotic therapy further surgical debridement and higher levels of amputation. Also risk of transfer pressure and transfer lesion subsequent wounds and infections. Patient is agreeable wishes to proceed has been n.p.o. since midnight I interviewed him preoperatively and answered questions to his satisfaction informed consent is signed and I initialed his left foot. No guarantees written, expressed or implied. Procedure: Under mild sedation the patient was brought to the operating room and placed on the operating table in supine position. A timeout was performed. Anesthesia was then administered by the anesthesia service. Local anesthesia injected by myself consisting of 30 cc of 0.5% Marcaine plain and a left White block fashion. Well-padded pneumatic tourniquet was applied to the left ankle. Left lower extremity was then scrubbed, prepped and draped utilizing normal aseptic technique. Left foot was elevated and tourniquet was inflated to 250 mmHg. No examination was performed due to underlying infection. Attention was directed to the dorsal medial aspect of the first metatarsal head and diaphysis where a linear longitudinal incision was made full-thickness down to bone with a #15 blade followed by an osteotomy mid diaphysis of the first metatarsal which was sent to microbiology for Gram stain and culture. Fibular and tibial sesamoids were excised sharply. All device soft tissue and bone was sharply debrided and passed from operative field. The level of the osteotomy had viable cortical bone of appropriate color and density however intramedullary and woven bone and the medullary canal had some degenerative changes this was evacuated utilizing curette and flushed with saline solution. 1 g of vancomycin powder introduced mid incision and within the medullary canal of the first metatarsal. Incision site was then closed utilizing 3-0 Vicryl and 3-0 nylon. Vision site was dressed with Adaptic, sterile 4 x 4, Kerlix and Lenard wrap. Following a period of postoperative monitoring he will be discharged home with plan for oral antibiotic therapy and a adjust per culture results.
[2020-07-25] MEDS: sodium chloride 0.9% 1,000 ML 30 ML IV (08:20)
[2020-07-25] MEDS: clindamycin 600 MG/50 ML PREMIX 100 MG IV (08:27)
[2020-07-25] MEDS: vancomycin 1,000 MG SDV 1000 MG XX (09:02)
[2020-07-25 09:20] VITALS: BP 96/54; PULSE 64; RESP 15; TEMP 36.2; O2SAT 94
--- NOTE | 2020-07-25 09:23 | P.PCN_ITS ---
PACU note PACU note: VSS, Good respiratory effort, report to HUMAN RESOURCES SUPPORT SPECIALIST Post-Anesthesia Exam: somnolent, arousable and vital signs stable
--- NOTE | 2020-07-25 09:23 | PM.PACU ---
PACU note PACU note: VSS, Good respiratory effort, report to CLINICAL DOCUMENTATION CONSULTANT Post-Anesthesia Exam: somnolent, arousable and vital signs stable
[2020-07-25 09:25] VITALS: BP 116/78; PULSE 68; RESP 17; O2SAT 96
[2020-07-25 09:30] VITALS: BP 116/63; PULSE 60; RESP 18; TEMP 36.6; O2SAT 97
[2020-07-25 09:36] VITALS: BP 127/54; PULSE 59; RESP 16; TEMP 36.1; O2SAT 92
[2020-07-25 09:50] VITALS: BP 135/65; PULSE 52; RESP 16; O2SAT 99
--- NOTE | 2020-07-25 10:21 | XR_ITS ---
WS: [id number] Exam: XR foot LT 2V [id number] Date/Time of Exam: 07/25/2020 10:52 AM Reason For Exam: post op There is been amputation of the distal 50% of the first metatarsal. Bandaging material is noted at th e surgery site. No other sign of bone destruction. No acute fracture seen. Degenerative changes. XR/XR foot LT 2V [id number] IMPRESSION: 1. Status post amputation of the distal 50% of the first metatarsal as indicate d above.
--- NOTE | 2020-07-25 13:39 | ANE.PACU2 ---
Inpatient post-anesthesia follow up: Airway intact: Yes Vital signs: Temperature 97.0 F Pulse Rate 52 Respiratory Rate 16 Blood Pressure 135/65 Pulse Oximetry 99 Oxygen Delivery Me thod Room Air Oxygen Flow Rate Fraction of Inspir ed Oxygen Hydration adequate: Yes Nausea and vomiting: No Pain level: 2 Mental status: Baseline
== END 2020-07-25 10:52 | disposition home or self-care (01) ==
PROVIDERS: PCP Nurse Practitioner Family; Visit Provider Podiatrist Foot & Ankle Surgery
PROC: (CPT 28122; principal; 2020-07-25 08:35)
DX: M86.8X7 Other osteomyelitis, ankle and foot (principal); J44.9 Chronic obstructive pulmonary disease, unspecified; I10 Essential (primary) hypertension; E11.42 Type 2 diabetes mellitus with diabetic polyneuropathy; Z87.891 Personal history of nicotine dependence; Z79.82 Long term (current) use of aspirin; Z79.4 Long term (current) use of insulin
CPT/HCPCS: 28122; 36416; 73620; 82962; 87070; 87075; 87205; J2704; J3010; J3370; J3490; J7030

== ENCOUNTER → 2020-09-01 10:18 | Outpatient (BNVA) | payer MEDICARE, SELFPAY | PROVIDERS: PCP Nurse Practitioner Family; Visit Provider Podiatrist Foot & Ankle Surgery | DX: Z89.429 Acquired absence of other toe(s), unspecified side (principal); L97.522 Non-pressure chronic ulcer of other part of left foot with fat layer exposed; I73.9 Peripheral vascular disease, unspecified | CPT/HCPCS: 73630 ==

== ENCOUNTER → 2020-10-09 10:18 | Outpatient (BNVA) | payer MEDICARE, SELFPAY | PROVIDERS: PCP Nurse Practitioner Family; Visit Provider Podiatrist Foot & Ankle Surgery | DX: E11.42 Type 2 diabetes mellitus with diabetic polyneuropathy (principal); L97.522 Non-pressure chronic ulcer of other part of left foot with fat layer exposed; I73.9 Peripheral vascular disease, unspecified; Z89.412 Acquired absence of left great toe | CPT/HCPCS: 73630; 87070; 87075; 87077; 87186; 87205 ==

== ENCOUNTER → 2020-10-23 11:25 | Outpatient (BNVA) | payer MEDICARE, SELFPAY | PROVIDERS: PCP Nurse Practitioner Family; Visit Provider Podiatrist Foot & Ankle Surgery | DX: E11.42 Type 2 diabetes mellitus with diabetic polyneuropathy (principal); L97.522 Non-pressure chronic ulcer of other part of left foot with fat layer exposed; I73.9 Peripheral vascular disease, unspecified; Z89.429 Acquired absence of other toe(s), unspecified side | CPT/HCPCS: 73630 ==

== ENCOUNTER 2021-06-10 10:52 | Inpatient (IN) | payer MEDICARE, SELFPAY ==
[2021-06-10 11:08] VITALS: PULSE 70; RESP 20; TEMP 36.1; O2SAT 94; BMI 26.7
--- NOTE | 2021-06-10 12:26 | ECG_ITS ---
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 Measurements Intervals [place] Rate: 62 P: 30 IL: 244 QRS: -87 QRSD: 146 T: 67 QT: 438 QTc: 446 Interpretive Statements SINUS RHYTHM WITH FIRST DEGREE AV BLOCK WITH OCCASIONAL SUPRAVENTRICULAR PREMATURE COMPLEXES RIGHT BUNDLE BRANCH BLOCK ANTERIOR MYOCARDIAL INFARCTION , OF INDETERMINATE AGE INFERIOR MYOCARDIAL INFARCTION , OF INDETERMINATE AGE Compared to ECG 11/21/2018 13:33:04 First degree AV block now present Myocardial infarct finding now present Indeterminate axis no longer present Electronically Signed On 06-10-2021 19:23:58 PHLEBOTOMY TECH by Kori Rodriguez M.D. [id number]
--- NOTE | 2021-06-10 12:26 | XR_ITS ---
WS: [id number] PORTABLE CHEST HISTORY: sob COMPARISON: 02/21/2020 Lungs are hyperinflated. Mild pulmonary venous congestion. Benign granuloma LEFT lung. Interval devel opment of small bilateral pleural effusions. Pulmonary arteries are enlarged centrally but taper rapi dly. Cardiac size: Partially obscured by the airspace disease and fluid. Mediastinum/Aorta: Mild atherosclerosis aorta. No osseous abnormality seen. XR/XR chest 1V portable [id number] IMPRESSION: 1. Mild pulmonary venous congestion. 2. Small bilateral pleural effusions. 3. Pulmonary hypertension.
--- NOTE | 2021-06-10 14:26 | ECG_ITS ---
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 Measurements Intervals [place] Rate: 65 P: 19 CA: 274 QRS: -88 QRSD: 149 T: 64 QT: 439 QTc: 460 Interpretive Statements SINUS RHYTHM WITH SINUS ARRHYTHMIA WITH FIRST DEGREE AV BLOCK LEFT AXIS DEVIATION [QRS AXIS < -30] RIGHT BUNDLE BRANCH BLOCK [120+ ms QRS DURATION, UPRIGHT V1, 40+ ms S IN I/aVL/V4/V5/V6] POSSIBLE ANTERIOR MYOCARDIAL INFARCTION , OF INDETERMINATE AGE [30 ms Q WAVE IN V3/V4, OR R < 0.2 mV IN V4] Compared to ECG 06/10/2021 13:08:11 Left-axis deviation now present Myocardial infarct finding still present Electronically Signed On 06-10-2021 19:31:31 SURVEY COORDINATOR by Kori Rodriguez M.D. [id number]
[2021-06-10 14:33] LABS: Basophils # 0.1 10^3/uL (0.0-0.1); Basophils % 0.7 %; Eosinophils # 0.2 10^3/uL (0.0-0.8); Eosinophils % 2.4 %; Hematocrit 42.2 % (42.0-52.0); Lymphocytes # 2.1 10^3/uL (0.8-4.8); Lymphocytes % 24.7 %; Mean Corpuscular HGB Conc 30.8 g/dL (30.0-36.0); Mean Corpuscular Hemoglobin 26.7 pg (28.0-34.0); Mean Corpuscular Volume 86.7 fl (80-94); Mean Platelet Volume 9.4 fL (7.4-10.4); Monocytes # 0.7 10^3/uL (0.2-0.9); Monocytes % 8.4 %; Neutrophils % 63.6 %; Nucleated Red Blood Cells % 0 %; Platelet Count 313 10^3/cmm (130-400); Red Blood Count 4.87 10^6/uL (4.1-5.3); Red Cell Distribution Width 13.4 % (12.1-15.1); White Blood Count 8.5 10^3/uL (4.0-10.0)
[2021-06-10 14:58] LABS: Aspartate Amino Transferase 14 U/L (0-40); Total Bilirubin 0.3 mg/dL (0.15-1.2)
[2021-06-10 14:59] LABS: Troponin(5th) Baseline 36 ng/L (0-15)
[2021-06-10 15:33] LABS: Alanine Aminotransferase 11 U/L (0-41); Albumin Level 3.7 g/dL (3.5-5.2); Alkaline Phosphatase 132 IU/L (40-130); Anion Gap 19.4 (5-19); Blood Urea Nitrogen 24 mg/dL (8-23); Carbon Dioxide 23 mmol/L (22-29); Chloride 107 mmol/L (98-107); Globulin 2.6 g/dL (1.3-4.6); Glucose 134 mg/dL (65-115); NT Pro B Type Natriuretic Pept 3692 pg/mL (0-450); Osmolality Calculated 306 mOsm/kg (285-295); Potassium 4.4 mmol/L (3.5-5.1); Sodium 145 mmol/L (136-145); Total Protein 6.3 g/dL (6.6-8.7)
[2021-06-10 15:34] LABS: Calcium 9.4 mg/dL (8.5-10.5)
[2021-06-10 17:56] LABS: Troponin 5 2HR 35.54 ng/L (0-15)
[2021-06-10 18:00] LABS: Troponin 5 2HR Delta -0.46 ABS# (0-10)
--- NOTE | 2021-06-10 20:05 | CTR_ITS ---
PROCEDURE INFORMATION: Exam: CTA Chest With Contrast Exam date and time: 06/10/2021 8:05 PM Age: 81 years old Clinical indication: Shortness of breath; Additional info: SOB TECHNIQUE: Imaging protocol: Computed tomographic angiography of the chest with contrast. 3D rendering (Not supervised by radiologist): MIP and/or 3D reconstructed images were created by the technologist. Radiation optimization: All CT scans at this facility use at least one of these dose optimization techniques: automated exposure control; mA and/or kV adjustment per patient size (includes targeted exams where dose is matched to clinical indication); or iterative reconstruction. Contrast material: OMNI 350; Contrast volume: 68 ml; Contrast route: INTRAVENOUS (IV); COMPARISON: 1. CR XR chest 1V portable [id number] 06/10/2021 12:36 PM 2. CR XR chest 2V* 87000 02/21/2020 10:47 AM RADIATION DOSE METRICS: Total DLP (mGy-cm): 619.59 FINDINGS: Pulmonary arteries: The pulmonary arteries are adequately opacified for evaluation to the subsegmental level. There is no filling defect to suggest embolism. Aorta: There is moderate aortic atherosclerotic disease. Lungs: There is mild upper lung predominant centrilobular emphysema. There is central bronchial wall thickening bilaterally. There is a noncalcified 8 mm nodule in left upper lobe on axial series 2, image 230. There is an 11 mm nodule in the left upper lobe on axial series 2, image 261. There is dependent atelectasis in the lower lobes bilaterally. There is multifocal ill-defined nodular consolidation in the inferior left upper lobe and superior segment of the left lower lobe. Pleural spaces: Large simple dependent bilateral pleural effusions. Heart: There is mild cardiac enlargement. There is no pericardial effusion. There is severe coronary artery calcification. Lymph nodes: Prominent bilateral hilar and subcarinal lymph nodes of uncertain significance. Gallbladder and bile ducts: The gallbladder is absent. There is moderate dilation of the common bile duct and central intrahepatic ducts. Pancreas: There is mild atrophy of the pancreas. Spleen: Splenic size is normal. There are scattered calcifications consistent with healed granulomas. Bones/joints: There are healed bilateral rib fractures. There are chronic mild compression fractures at T11 and T12. Soft tissues: The extrathoracic soft tissues are unremarkable. CT/CT angio chest PE protcl [id number] IMPRESSION: 1. No pulmonary embolism. 2. Consolidation in the inferior left upper lobe and superior left lower lobe suggests infection. 3. Central bronchial wall thickening bilaterally may be due to interstitial edema or bronchitis. 4. Large bilateral pleural effusions. 5. Mild centrilobular emphysema. 8. Left upper lobe pulmonary nodules measuring up to 11 mm diameter. For patients at low risk (minimal or absent history of smoking and of other known risk factors), recommend CT Chest at 3-6 months, then consider CT Chest at 18-24 months. For patients at high risk (history of smoking or of other known risk factors), recommend CT Chest at 3-6 months, then CT Chest at 18-24 months. (Reference: Aaron) REFERENCES: 1. Divyahosunshine H, et al. Guidelines for Management of Incidental Pulmonary Nodules Detected on CT Images: From the Fleischner Society 2017. Radiology. 2017;284(1):228-243. 2. MacAmrithon H, et al. Guidelines for Management of Incidental Pulmonary Nodules Detected on CT Images: From the Fleischner Society 2017. Radiology. 2017;284(1):228-243.
[2021-06-10 20:16] VITALS: BP 182/90; PULSE 77; RESP 20; O2SAT 98
--- NOTE | 2021-06-10 20:16 | ED_ITS ---
HPI - SOB/Dyspnea General: Chief Complaint: Shortness of Breath/Dyspnea Stated Complaint: SOB Time Seen by Provider: 06/10/21 19:54 Source: patient Mode of arrival: ambulatory Limitations: no limitations History of Present Illness: HPI Narrative: 81-year-old male states he has been having increasing shortness of breath over the last month. He is a former smoker no longer smokes states he seen his primary care doctor multiple times has been taking inhalers with minimal impro vement. He states at rest he does well but anytime he exerts himself he gets short of breath. Pulse ox here is 98% on room air denies any chest pain states over the last 3 to 4 days he has had a slight cough denies any sick contacts he had no vomiting or diarrhea. Associated symptoms: Deny abdominal pain, chest pain, fever(s), nausea or vomiting Review of Systems Const: Denies: fever(s), chills, body aches or change in appetite Eyes: Denies: blurry vision or eye discomfort ENMT: Denies: throat pain or dental pain Card: Denies: chest pain Resp: Reports: dyspnea and non-productive cough GI: Denies: abdominal pain, nausea, vomiting or diarrhea : Denies: dysuria Musc: Denies: neck pain or back pain Skin/Breast: Denies: rash Neuro: Denies: headache(s) Psych: Denies: depression Britton/Lymph: Denies: easy bruising All/Imm: Denies: urticaria PFSH ED PFSH: Medical History COPD (chronic obstructive pulmonary disease) Diabetic polyneuropathy associated with type 2 diabetes mellitus Hypertension Venous insufficiency Social History Smoking and tobacco status: former smoker Household members: none Marital status: / Physical Exam Const: COMMON NORMALS: no acute distress, patient oriented x3 and healthy appearing HENMT: COMMON NORMALS: normocephalic and atraumatic HEAD & SCALP: normocephalic and atraumatic Eye: COMMON NORMALS: Equal, round and reactive pupils present and EOMs intact bilaterally PUPIL: Yes Equal, round and reactive pupils present Neck/C-Spine: COMMON NORMALS: full ROM and supple Chest: COMMONS NORMALS: normal inspection of the chest and normal palpation of entire chest wall Resp: COMMON NORMALS: normal respiratory effort, No retractions and No use of accessory muscles AUSCULTATION: rales and wheezes Cardio: COMMON NORMALS: regular rate, regular rhythm and No murmurs present (Cardio) RATE: regular rate RHYTHM: regular rhythm GI: COMMON NORMALS: Normal to inspection, nondistended, normoactive bowel sounds present, Soft to palpation, non-tender and no masses PALPATION: Yes Soft to palpation Extremity: COMMON NORMALS: normal to inspection and full ROM Neuro: COMMON NORMALS: patient oriented x3, moves all extremities and no focal motor deficits Psych: COMMON NORMALS: mental status grossly normal, Normal thought process present and cooperative THOUGHT PROCESS: Normal thought process present Skin: COMMON NORMALS: no rashes or lesions noted and no wounds GENERAL SKIN EXAM: no rashes or lesions noted Course Vital Signs: Vital signs: Vital Signs Temperature 97.0 F L 06/10/21 11:08 Pulse Rate 68 06/10/21 22:48 Respiratory Rate 17 06/10/21 22:48 Blood Pressure 162/73 06/10/21 22:48 Pulse Oximetry 97 06/10/21 22:48 MDM - SOB/Dyspnea Medical Decision Making Patient presents here with dyspnea and was found to have an elevated BNP possibly undiagnosed congestive heart failure CT shows bilateral pleural effusions that are large along with pneumonia have given Lasix here will start him on IV antibiotics also spoke to hospitalist and will admit at this time. Covid test here was negative Lab Data : 06/10/21 14:26 06/10/21 14:26 Labs/Radiology: Radiology Impressions Chest X-Ray 06/10/21 12:26 IMPRESSION: 1. Mild pulmonary venous congestion. 2. Small bilateral pleural effusions. 3. Pulmonary hypertension. Chest CTA 06/10/21 20:05 IMPRESSION: 1. No pulmonary embolism. 2. Consolidation in the inferior left upper lobe and superior left lower lobe suggests infection. 3. Central bronchial wall thickening bilaterally may be due to interstitial edema or bronchitis. 4. Large bilateral pleural effusions. 5. Mild centrilobular emphysema. 8. Left upper lobe pulmonary nodules measuring up to 11 mm diameter. For patients at low risk (minimal or absent history of smoking and of other known risk factors), recommend CT Chest at 3-6 months, then consider CT Chest at 18-24 months. For patients at high risk (history of smoking or of other known risk factors), recommend CT Chest at 3-6 months, then CT Chest at 18-24 months. (Reference: Aaron) REFERENCES: 1. Aaron Martins et al. Guidelines for Management of Incidental Pulmonary Nodules Detected on CT Images: From the Fleischner Society 2017. Radiology. 2017;284(1):228-243. 2. Aaron Martins, et al. Guidelines for Management of Incidental Pulmonary Nodules Detected on CT Images: From the Fleischner Society 2017. Radiology. 2017;284(1):228-243. Laboratory Results WBC 8.5 10^3/uL (4.0-10.0) 06/10/21 14:26 RBC 4.87 10^6/uL (4.1-5.3) 06/10/21 14:26 Hgb 13.0 g/dL (11.7-16.6) 06/10/21 14:26 Hct 42.2 % (42.0-52.0) 06/10/21 14:26 MCV 86.7 fl (80-94) 06/10/21 14:26 MCH 26.7 pg (28.0-34.0) L 06/10/21 14:26 MCHC 30.8 g/dL (30.0-36.0) 06/10/21 14:26 RDW 13.4 % (12.1-15.1) 06/10/21 14:26 Plt Count 313 10^3/cmm (130-400) 06/10/21 14:26 MPV 9.4 fL (7.4-10.4) 06/10/21 14:26 Neut % (Auto) 63.6 % 06/10/21 14:26 Lymph % (Auto) 24.7 % 06/10/21 14:26 Jerauld % (Auto) 8.4 % 06/10/21 14:26 Eos % (Auto) 2.4 % 06/10/21 14:26 Baso % (Auto) 0.7 % 06/10/21 14:26 Neut # (Auto) 5.40 10^3/uL (1.8-7.7) 06/10/21 14:26 Lymph # (Auto) 2.1 10^3/uL (0.8-4.8) 06/10/21 14:26 Jerauld # (Auto) 0.7 10^3/uL (0.2-0.9) 06/10/21 14:26 Eos # (Auto) 0.2 10^3/uL (0.0-0.8) 06/10/21 14:26 Baso # (Auto) 0.1 10^3/uL (0.0-0.1) 06/10/21 14:26 Nucleated RBC % (auto) 0 % 06/10/21 14: Nucleated RBCs # 0.0 /100WBC 06/10/21 14:26 Sodium 145 mmol/L (136-145) 06/10/21 14:26 Potassium 4.4 mmol/L (3.5-5.1) 06/10/21 14:26 Chloride 107 mmol/L (98-107) 06/10/21 14:26 Carbon Dioxide 23 mmol/L (22-29) 06/10/21 14:26 Anion Gap 19.4 (5-19) H 06/10/21 14:26 BUN 24 mg/dL (8-23) H 06/10/21 14:26 Creatinine 1.0 mg/dL (0.7-1.2) 06/10/21 14:26 GFR Calculation Not Reportable 06/10/21 14:26 Glucose 134 mg/dL (65-115) H 06/10/21 14:26 Calculated Osmolality 306 mOsm/kg (285-295) H 06/10/21 14:26 Calcium 9.4 mg/dL (8.5-10.5) 06/10/21 14:26 Total Bilirubin 0.3 mg/dL (0.15-1.2) 06/10/21 14:26 AST 14 U/L (0-40) 06/10/21 14:26 ALT 11 U/L (0-41) 06/10/21 14:26 Alkaline Phosphatase 132 IU/L (40-130) H 06/10/21 14:26 Troponin T Baseline 36 ng/L (0-15) H 06/10/21 14:26 Troponin T 120 Minute 35.54 ng/L (0-15) H 06/10/21 16:29 Delta Troponin T -0.46 ABS# (0-10) L 06/10/21 16:29 Troponin T Hi Sens 6Hr 35.51 ng/L (0-15) H 06/10/21 20:14 Troponin T Hi Sens 6Hr Delta -0.49 ng/L (0-12) L 06/10/21 20:14 NT-Pro-B Natriuret Pep 3692 pg/mL (0-450) H 06/10/21 14:26 Total Protein 6.3 g/dL (6.6-8.7) L 06/10/21 14:26 Albumin 3.7 g/dL (3.5-5.2) 06/10/21 14:26 Globulin 2.6 g/dL (1.3-4.6) 06/10/21 14:26 SARS-CoV-2 Ag (Rapid) Negative (Negative) 06/10/21 20:26 Discharge Plan Discharge Patient Disposition: Admitted As Inpatient Clinical Impression: Pleural effusion Community acquired pneumonia Qualifiers: Laterality: right Lung location: upper lobe of lung Qualified Code(s): J18.9 - Pneumonia, unspecified organism Condition: Stable Coding Level of Care Code ED Remediation Project Engineer for Scotty Fwd Exam Comprehensive
[2021-06-10 20:45] VITALS: BP 146/84; PULSE 67; RESP 20; O2SAT 97
[2021-06-10 21:06] LABS: SARS Covid-2 Antigen Negative (Negative)
[2021-06-10 21:18] LABS: Troponin 5 6HR 35.51 ng/L (0-15)
[2021-06-10 21:19] LABS: Troponin 5 6HR Delta -0.49 ng/L (0-12)
[2021-06-10] MEDS: FUROsemide 10 mg/mL SDV 4mL 40 MG IVP (22:01)
[2021-06-10] MEDS: iohexol 350 mg/mL 100 mL Btl IV (22:27)
[2021-06-10 22:48] VITALS: BP 162/73; PULSE 68; RESP 17; O2SAT 97
[2021-06-10 23:02] VITALS: PULSE 64; RESP 18; O2SAT 96
[2021-06-10] MEDS: ipratropium-albuterol 3 mL Neb INHALATION (23:02)
[2021-06-10 23:49] VITALS: BP 139/85; PULSE 62; RESP 19; O2SAT 94
[2021-06-11] VITALS (10 sets, daily range): BP systolic 111–150; BP diastolic 53–81; PULSE 68–91; RESP 13–29; TEMP 36.4; O2SAT 92–98
[2021-06-11] MEDS: cefTRIAXone 1,000 MG in sodium chloride 0.9% (plus) 50 ML 100 MG IV (00:02)
[2021-06-11] MEDS: azithromycin 500 MG in sodium chloride 0.9% 250 ML 250 MG IV (00:42)
--- NOTE | 2021-06-11 01:52 | USCV_ITS ---
Brennon Dueñas Age: 81 Gender: M : 1940 Exam Date: 06/11/2021 07:11 Ordering Phys: Aleksander Falcon MD Technologist: Estrellita Wood Exam Location: [facility] [place] Indication: SOB BP: 145 / 92 HR: 80 Rhythm: Atrial fibrillation Technical Quality: LIMITED MEASUREMENTS (Male / Female) Normal Values 2D ECHO LV Ejection Fraction MOD 2C 55.5 % LV Ejection Fraction 2C AL 55.3 % LA Width 3.7 cm LA Height 4.2 cm RA Width 3.1 cm RA Height 4.2 cm DOPPLER AV Peak Velocity 158.0 cm/s LVOT Peak Velocity 96.0 cm/s MV Peak Velocity 146.0 cm/s MV Area PHT 7.6 cm squared MV E' Velocity 64.5 cm/s Mitral E to MV E' Ratio 8.3 Mitral E to LV E' Lateral Ratio 7.0 Mitral E to LV E' Septal Ratio 10.1 TV Peak E Velocity 49.0 cm/s FINDINGS Left Ventricle Mildly increased left ventricular cavity size. Moderately decreased left ventricular systolic function. Left ventricular ejection fraction is estimated at 45 %. There appeared to be lateral wall akinesis. In the presence of atrial fibrillation diastolic function cannot be assessed accurately. Right Ventricle Right Atrium Left Atrium Mitral Valve Aortic Valve Tricuspid Valve Pulmonic Valve Pericardium Aorta CONCLUSIONS Limited echo, suboptimal images without contrast therefore estimation of ejection fraction may not be accurate. 1-Mildly increased left ventricular cavity size. Moderately decreased left ventricular systolic function. Left ventricular ejection fraction is estimated at 45 %. There appeared to be lateral wall akinesis. In the presence of atrial fibrillation diastolic function cannot be assessed accurately. 2-There is no pericardial effusion. 3-There are no prior echocardiogram studies to compare. Simón Kenyon MD (Electronically Signed) Final Date: 11 June 2021 18:14 S
--- NOTE | 2021-06-11 02:01 | P.HP_ITS ---
Providers/Chief Complaint Primary Care Provider: Abigail Lunsford NP Chief Complaint: SOB History of Present Illness Brennon Dueñas is a 81 year old male with a past medical history of COPD, insulin-dependent type 2 diabetes mellitus, hypertension, who presents to [facility] due to shortness of breath. Patient tells me that over the last few days he has experienced increase shortness of breath, with orthopnea, paroxysmal nocturnal dyspnea, no lower extremity edema, has had a nonproductive cough, has been vaccinated for COVID, denies any chest pain, no palpitations, prior history of smoking. Review of Systems Const: Denies: fever(s) Eyes: Denies: change in vision or blurry vision ENMT: Denies: nasal congestion Card: Denies: chest pain, palpitations or pre-syncope Resp: Denies: dyspnea or non-productive cough GI: Denies: abdominal pain, nausea, vomiting, diarrhea, constipation or h ematochezia : Denies: flank pain, difficulty urinating, dysuria or urinary frequency Musc: Denies: neck pain or back pain Skin/Breast: Denies: rash Neuro: Denies: headache(s), dizziness or vertigo Psych: Denies: anxiety Endo: Denies: polyuria or polydipsia Medications/Allergies Home Medications Medication Instructions Recorded Confirmed Last Taken Type albuterol sulfate 90 mcg/actuation 1 puff INHALATION Q6H PRN 03/17/20 06/10/21 07/23/20 History aerosol inhaler insulin degludec 200 unit/mL (3 40 unit SUBCUT PRN PRN 03/17/20 06/10/21 History mL) subcutaneous pen aspirin 81 mg tablet,delayed 81 mg PO DAILY 05/01/20 06/10/21 06/09/21 History release cholecalciferol (vitamin D3) 100 100 mcg PO DAILY 05/01/20 06/10/21 06/09/21 History mcg (4,000 unit) capsule (Vitamin D3) cilostazol 50 mg tablet 50 mg PO DAILY 05/01/20 06/10/21 06/09/21 History furosemide 20 mg tablet 20 mg PO DAILY 05/01/20 06/10/21 06/09/21 History lisinopril 20 mg tablet 20 mg PO DAILY 05/01/20 06/10/21 06/09/21 History Diabetic shoes #1 ea 07/01/20 06/10/21 Unknown Rx fit for left diabetic shoe and #1 ea 10/23/20 06/10/21 Unknown Rx inserts Allergies Allergy/AdvReac Type Severity Reaction Status Date / Time codeine Allergy Unknown Unknown Verified 06/10/21 11:12 PFSH Acute PFSH: Medical History (Updated 06/11/21 @ 02:08 by Aleksander Falcon MD) COPD (chronic obstructive pulmonary disease) Diabetic polyneuropathy associated with type 2 diabetes mellitus History of atrial fibrillation Hypertension Venous insufficiency Surgical History (Updated 06/11/21 @ 02:06 by Aleksander Falcon MD) History of foot surgery History of hip surgery Status post bilateral hernia repair Social History Smoking and tobacco status: former smoker Household members: none Marital status: / Vitals/I&O/Wt Last Vital Signs Temp 97.0 F L 06/10/21 11:08 Pulse 78 06/11/21 00:17 Resp 20 H 06/11/21 00:17 BP 145/81 06/11/21 00:17 Pulse Ox 92 06/11/21 00:17 06/10/21 06/10/21 06/11/21 14:59 22:59 06:59 Intake Total 300 / 300 Balance 300 / 300 Weight last 48 hrs Weight 89.358 kg Physical Exam Const: COMMON NORMALS: no acute distress and patient oriented x3 HENMT: COMMON NORMALS: normocephalic HEAD & SCALP: normocephalic Neck/C-Spine: COMMON NORMALS: no JVD Resp: COMMON NORMALS: normal respiratory effort, No retractions, No use of accessory muscles and clear to auscultation bilaterally AUSCULTATION: wheezes Cardio: COMMON NORMALS: no JVD, regular rate, regular rhythm, S1 normal heart sound present and S2 normal heart sound present RATE: regular rate RHYTHM: regular rhythm HEART SOUNDS: S1 normal heart sound present and S2 normal heart sound present GI: COMMON NORMALS: Normal to inspection, nondistended, normoactive bowel sounds present, Soft to palpation, non-tender, No hepatosplenomegaly present, no masses and no bruits PALPATION: Yes Soft to palpation and Yes No hepatosplenomegaly present Extremity: COMMON NORMALS: capillary refill normal, no clubbing, cyanosis or edema, no calf tenderness and no pedal edema Neuro: COMMON NORMALS: patient oriented x3 Psych: COMMON NORMALS: mental status grossly normal Data : 06/10/21 14:26 06/10/21 14:26 Micro: Microbiology 06/10/21 23:39 Blood Culture - Preliminary Blood SPECIMEN COLLECTED 06/10/21 23:42 Blood Culture - Preliminary Blood SPECIMEN COLLECTED A&P Assessment and plan (1) Community acquired pneumonia: Status: Acute Qualifiers: Laterality: right Lung location: upper lobe of lung Qualified Code(s): J18.9 - Pneumonia, unspecified organism (2) CHF (congestive heart failure): Status: Acute Plan Community-acquired pneumonia -Consolidation in the inferior left upper lobe and superior left lower lobe suggests infection. -Continue Rocephin and azithromycin CHF -Monitor BNP -Monitor urine output -Continue Lasix therapy 40 IV twice daily -Monitor creatinine, monitor potassium -Cardiac echocardiogram NSTEMI -No chest pain complaints -Baseline troponin was 36, 120-minute 35.54, 6-hour 35.5 -EKG shows sinus rhythm, with first-degree AV block, left axis deviation, right bundle branch block Type 2 diabetes mellitus, low-dose sliding scale Attestations Medical Necessity Statement*: Patient requires hospitalization for pneumonia, CHF exacerbation Coding Level of Care Code Acute Chemistry Account Manager for [facility] Thi Diagnoses Community acquired pneumonia J18.9 Laterality: right Lung location: upper lobe of lung CHF (congestive heart failure) I50.9
[2021-06-11 02:22] LABS: C Reactive Protein 26.9 mg/L (0.0-4.9)
[2021-06-11 02:22] LABS: Estmated Average Glucose 143; Hemoglobin A1C 6.6 % (4.0-6.0)
[2021-06-11 02:27] LABS: Procalcitonin 0.24 ng/mL (0-0.5)
[2021-06-11] MEDS: pantoprazole 40 mg SDV IVP (03:40)
[2021-06-11] MEDS: FUROsemide 10 mg/mL SDV 4mL 40 MG IVP ×2 (03:42→13:17)
[2021-06-11] MEDS: enoxaparin 40 mg/0.4 mL Syringe SUBCUT (03:44)
[2021-06-11 08:14] LABS: NT Pro B Type Natriuretic Pept 5050 pg/mL (0-450)
[2021-06-11 08:18] LABS: Influenza A by IFA Negative (Negative); Influenza B by IFA Negative (Negative)
[2021-06-11 08:49] LABS: Glucose Point of Care 194 mg/dL (70-110)
[2021-06-11] MEDS: insulin lispro 100 unit/1 mL SUBCUT ×3 (08:52→17:24)
[2021-06-11] MEDS: docusate sodium 100 mg Capsule PO ×2 (08:56→17:25)
[2021-06-11 11:43] LABS: Glucose Point of Care 200 mg/dL (70-110)
--- NOTE | 2021-06-11 14:23 | PC.NURSE ---
pt sitting up on the side of the bed. pt ambulatory
--- NOTE | 2021-06-11 16:14 | PC.OT ---
OT EVALUATION HELD THIS DATE PATIENT REMAINS IN ER AT THIS TIME.
--- NOTE | 2021-06-11 16:33 | PC.OT ---
OT EVALUATION ORDERS RECEIVED; PATIENT DEMONSTRATED ADLS TO PLOF . NO FURTHER SKILLED OT REQUIRED.
[2021-06-11 17:17] LABS: Glucose Point of Care 163 mg/dL (70-110)
[2021-06-11 21:27] LABS: Glucose Point of Care 108 mg/dL (70-110)
[2021-06-12] VITALS (11 sets, daily range): BP systolic 120–144; BP diastolic 64–67; PULSE 60–68; RESP 16–20; TEMP 36.3–36.9; O2SAT 90–98
[2021-06-12] MEDS: cefTRIAXone 1,000 MG in sodium chloride 0.9% (plus) 50 ML 100 MG IV (00:43)
[2021-06-12] MEDS: FUROsemide 10 mg/mL SDV 4mL 40 MG IVP ×2 (01:05→15:11)
[2021-06-12] MEDS: pantoprazole 40 mg SDV IVP (01:05)
[2021-06-12] MEDS: enoxaparin 40 mg/0.4 mL Syringe SUBCUT (01:11)
[2021-06-12] MEDS: azithromycin 500 MG in sodium chloride 0.9% 250 ML 250 MG IV (01:11)
[2021-06-12 06:30] LABS: Basophils % 0.3 %; Eosinophils # 0.1 10^3/uL (0.0-0.8); Eosinophils % 1.2 %; Lymphocytes # 2.7 10^3/uL (0.8-4.8); Lymphocytes % 26.6 %; Mean Corpuscular HGB Conc 31.6 g/dL (30.0-36.0); Mean Corpuscular Volume 85.6 fl (80-94); Mean Platelet Volume 9.8 fL (7.4-10.4); Monocytes # 0.9 10^3/uL (0.2-0.9); Monocytes % 8.5 %; Neutrophils # 6.41 10^3/uL (1.8-7.7); Neutrophils % 63.1 %; Nucleated Red Blood Cells % 0 %; Platelet Count 293 10^3/cmm (130-400); Red Blood Count 4.44 10^6/uL (4.1-5.3); Red Cell Distribution Width 13.6 % (12.1-15.1); White Blood Count 10.2 10^3/uL (4.0-10.0)
[2021-06-12 06:51] LABS: Lactic Sepsis W/Reflex 0.8 mmol/L (0.5-2.2)
[2021-06-12 06:55] LABS: Cholesterol 196 mg/dL (0-200); HDL Cholesterol 40 mg/dL (60-100); LDL Cholesterol Calculated 135 mg/dL (50-129); LDL HDL Ratio 3.38 RATIO (0.00-3.22); Triglycerides 104 mg/dL (0-150)
[2021-06-12 06:57] LABS: Alanine Aminotransferase 10 U/L (0-41); Albumin Level 3.5 g/dL (3.5-5.2); Alkaline Phosphatase 117 IU/L (40-130); Anion Gap 14.1 (5-19); Aspartate Amino Transferase 13 U/L (0-40); Blood Urea Nitrogen 30 mg/dL (8-23); Calcium 8.4 mg/dL (8.5-10.5); Carbon Dioxide 29 mmol/L (22-29); Chloride 102 mmol/L (98-107); Globulin 2.3 g/dL (1.3-4.6); Glucose 146 mg/dL (65-115); Magnesium 2.2 mg/dL (1.7-2.3); Osmolality Calculated 301 mOsm/kg (285-295); Phosphorus 3.5 mg/dL (2.5-4.5); Potassium 4.1 mmol/L (3.5-5.1); Sodium 141 mmol/L (136-145); Thyroid Stimulating Hormone 2.16 uIU/mL (0.27-4.20); Total Bilirubin 0.2 mg/dL (0.15-1.2); Total Protein 5.8 g/dL (6.6-8.7)
[2021-06-12 07:10] LABS: Glucose Point of Care 138 mg/dL (70-110)
[2021-06-12] MEDS: docusate sodium 100 mg Capsule PO ×2 (09:22→17:30)
[2021-06-12 11:01] LABS: Glucose Point of Care 196 mg/dL (70-110)
[2021-06-12] MEDS: insulin lispro 100 unit/1 mL SUBCUT (12:59)
--- NOTE | 2021-06-12 17:27 | P.PN_ITS ---
Subjective Subjective: C/o increased cough today, bringing up phlegm, denies dyspnea however with audible wheezing. Continues on iv diuresis, urine output 1.9L. saturating 97% on RA Vitals/I&O/Wt Last Vital Signs Temp 97.4 F L 06/12/21 16:00 Pulse 60 06/12/21 16:00 Resp 16 06/12/21 16:00 BP 144/65 06/12/21 16:00 Pulse Ox 98 06/12/21 16:00 06/12/21 06/12/21 06/12/21 06:59 14:59 22:59 Intake Total 840 / 1080 840 / 840 Output Total 1460 / 1460 475 / 475 Balance -620 / -380 365 / 365 Physical Exam Narrative: GEN: Awake, alert and oriented, no acute distress CVS: S1S2 N RS: Wheezing to auscultation B/L all areas Abd: Soft, nt/nd , bs+ AREA MECHANIC: no focal neuro deficits Data : 06/12/21 06:03 06/12/21 06:03 Micro: Microbiology 06/10/21 23:39 Blood Culture - Preliminary Blood NEGATIVE TO DATE 06/10/21 23:42 Blood Culture - Preliminary Blood NEGATIVE TO DATE A&P Assessment and plan (1) CHF (congestive heart failure): Status: Acute (2) Community acquired pneumonia: Status: Acute Qualifiers: Laterality: right Lung location: upper lobe of lung Qualified Code(s): J18.9 - Pneumonia, unspecified organism (3) Pleural effusion: Status: Acute Plan Community-acquired pneumonia -Consolidation in the inferior left upper lobe and superior left lower lobe on CT chest -Continue Rocephin and azithromycin - sputum cx and gram stain pending Negtaive urine legionella and bacterial antigens - noted wheezing today, add duoneb inhalation every 6 hrs with prn albuterol CHF -urine output 1.7L -Continue Lasix therapy 40 IV twice daily to continue, monitor renal function -Cardiac echocardiogram with EF 45% and There appeared to be ?lateral wall akinesis. - patients states he has never been diagnosed with CT in the past however on asking specifically relates episodes of chest pain 4 years ago and reducing exercise capapcity over the past 4-5 months wherein he has difficulty ambulating even 200ft without getting SOB. This could be represnattive of CHF &/or angina equivalent Will likely need stress test once CHF optimized for further evaluation NSTEMI -No chest pain complaints -Baseline troponin was 36, 120-minute 35.54, 6-hour 35.5 -EKG shows sinus rhythm, with first-degree AV block, left axis deviation, right bundle branch block B/L pleural effusions , small, for now management with diuresis , likely related to CHF Type 2 diabetes mellitus, low-dose sliding scale Attestations Medical Necessity Statement*: iv diuresis for CHF, add nebulaization for noted wheezing Coding Level of Care Code Acute Assembler For Puller Over Machine for g Fwd Diagnoses CHF (congestive heart failure) I50.9 Community acquired pneumonia J18.9 Laterality: right Lung location: upper lobe of lung Pleural effusion J90
[2021-06-12 17:40] LABS: Glucose Point of Care 117 mg/dL (70-110)
[2021-06-12] MEDS: ipratropium-albuterol 3 mL Neb INHALATION (21:00)
[2021-06-12 21:06] LABS: Glucose Point of Care 156 mg/dL (70-110)
[2021-06-13] VITALS (11 sets, daily range): BP systolic 116–133; BP diastolic 59–77; PULSE 55–78; RESP 16–18; TEMP 36.2–36.9; O2SAT 93–98
--- NOTE | 2021-06-13 00:06 | PC.NURSE ---
patient wearing compression socks from home
[2021-06-13] MEDS: cefTRIAXone 1,000 MG in sodium chloride 0.9% (plus) 50 ML 100 MG IV (00:55)
[2021-06-13] MEDS: pantoprazole 40 mg SDV IVP (01:02)
[2021-06-13] MEDS: FUROsemide 10 mg/mL SDV 4mL 40 MG IVP (01:02)
[2021-06-13] MEDS: azithromycin 500 MG in sodium chloride 0.9% 250 ML 250 MG IV (01:37)
[2021-06-13] MEDS: enoxaparin 40 mg/0.4 mL Syringe SUBCUT (01:44)
--- NOTE | 2021-06-13 04:00 | XRR_ITS ---
PROCEDURE INFORMATION: Exam: XR Chest Exam date and time: 06/13/2021 4:00 AM Age: 81 years old Clinical indication: Shortness of breath; Patient HX: F/u for pneumonia and pleural effusion. ; Additional info: Follow up pneumonia, effusion TECHNIQUE: Imaging protocol: XR of the chest. Views: 1 view. COMPARISON: CR XR chest 1V portable [id number] 06/10/2021 12:36 PM FINDINGS: Lungs: There is redistribution and indistinctness of the pulmonary vasculature, in association with haziness of the lungs and small bilateral pleural effusions, which in the setting of cardiomegaly is consistent with pulmonary edema. Pneumonia should be excluded clinically. No pneumothorax. Pleural spaces: See Lungs finding. Heart/Mediastinum: Stable cardiomediastinal silhouette. Bones/joints: Degenerative changes of the spine seen. XR/XR chest 1V portable [id number] IMPRESSION: Imaging findings of pulmonary edema with small bilateral pleural effusions. Pneumonia should be excluded clinically.
[2021-06-13 06:42] LABS: Basophils % 0.5 %; Eosinophils # 0.1 10^3/uL (0.0-0.8); Eosinophils % 1.9 %; Hematocrit 38.6 % (42.0-52.0); Hemoglobin 12.1 g/dL (11.7-16.6); Lymphocytes # 1.8 10^3/uL (0.8-4.8); Lymphocytes % 24.3 %; Mean Corpuscular HGB Conc 31.3 g/dL (30.0-36.0); Mean Corpuscular Hemoglobin 26.5 pg (28.0-34.0); Mean Corpuscular Volume 84.5 fl (80-94); Monocytes # 0.7 10^3/uL (0.2-0.9); Monocytes % 9.3 %; Neutrophils # 4.72 10^3/uL (1.8-7.7); Neutrophils % 63.6 %; Nucleated Red Blood Cells % 0 %; Platelet Count 263 10^3/cmm (130-400); Red Blood Count 4.57 10^6/uL (4.1-5.3); Red Cell Distribution Width 13.4 % (12.1-15.1); White Blood Count 7.4 10^3/uL (4.0-10.0)
[2021-06-13 06:54] LABS: Glucose Point of Care 132 mg/dL (70-110)
[2021-06-13 07:04] LABS: Alanine Aminotransferase 9 U/L (0-41); Albumin Level 3.5 g/dL (3.5-5.2); Alkaline Phosphatase 115 IU/L (40-130); Aspartate Amino Transferase 13 U/L (0-40); Blood Urea Nitrogen 35 mg/dL (8-23); Calcium 8.4 mg/dL (8.5-10.5); Carbon Dioxide 30 mmol/L (22-29); Chloride 101 mmol/L (98-107); Globulin 2.3 g/dL (1.3-4.6); Glucose 160 mg/dL (65-115); Magnesium 2.3 mg/dL (1.7-2.3); Osmolality Calculated 303 mOsm/kg (285-295); Phosphorus 3.8 mg/dL (2.5-4.5); Sodium 141 mmol/L (136-145); Total Bilirubin 0.2 mg/dL (0.15-1.2); Total Protein 5.8 g/dL (6.6-8.7)
[2021-06-13] MEDS: docusate sodium 100 mg Capsule PO ×2 (08:31→17:42)
[2021-06-13] MEDS: FUROsemide 10 mg/mL SDV 4mL 60 MG IVP ×2 (11:30→21:52)
[2021-06-13 11:53] LABS: Glucose Point of Care 221 mg/dL (70-110)
--- NOTE | 2021-06-13 12:26 | PC.SOCIAL ---
IMM Update pg 2 of IMM updated and reviewed w/ patient. Copy provided.
[2021-06-13] MEDS: insulin lispro 100 unit/1 mL SUBCUT (12:58)
[2021-06-13 13:36] LABS: Adenovirus Not Detected (NOT DETECT); Chlamydia Pneumoniae Not Detected (NOT DETECT); Coronavirus 229E,HKU1,NL63,OC4 Not Detected (NOT DETECT); Human Metapneumovirus Not Detected (NOT DETECT); Human Rhinovirus/Enterovirus Not Detected (NOT DETECT); Influenza A Not Detected (NOT DETECT); Influenza A H1 Not Detected (NOT DETECT); Influenza A H1-2009 Not Detected (NOT DETECT); Influenza A H3 Not Detected (NOT DETECT); Influenza B Not Detected (NOT DETECT); Mycoplasma Pneumoniae Not Detected (NOT DETECT); Parainfluenza Virus Type 1 Not Detected (NOT DETECT); Parainfluenza Virus Type 2 Not Detected (NOT DETECT); Parainfluenza Virus Type 3 Not Detected (NOT DETECT); Parainfluenza Virus Type 4 Not Detected (NOT DETECT); Respiratory Syncytial Virus A Not Detected (NOT DETECT); Respiratory Syncytial Virus B Not Detected (NOT DETECT); SARS-COV-2 Not Detected (NOT DETECT)
[2021-06-13] MEDS: ipratropium-albuterol 3 mL Neb INHALATION ×2 (15:58→21:13)
[2021-06-13 16:47] LABS: Glucose Point of Care 103 mg/dL (70-110)
--- NOTE | 2021-06-13 17:40 | P.PN_ITS ---
Subjective Subjective: Reports breathing is improved however chest x-ray with increasing bilateral opacities check Covid PCR negative today. No longer wheezing today. Vitals/I&O/Wt Last Vital Signs Temp 98.4 F 06/13/21 16:01 Pulse 60 06/13/21 16:03 Resp 16 06/13/21 16:01 BP 124/64 06/13/21 16:01 Pulse Ox 98 06/13/21 16:01 06/13/21 06/13/21 06/13/21 06:59 14:59 22:59 Intake Total 250 / 1090 930 / 930 Output Total 1475 / 2700 Balance -1225 / -1610 930 / 930 Physical Exam Narrative: GEN: Awake, alert and oriented, no acute distress CVS: S1S2 N RS: Wheezing to auscultation B/L all areas Abd: Soft, nt/nd , bs+ PRODUCTION LINE ASSEMBLER: no focal neuro deficits Data : 06/13/21 06:10 06/13/21 06:10 A&P Assessment and plan (1) CHF (congestive heart failure): Status: Acute (2) Community acquired pneumonia: Status: Acute Qualifiers: Laterality: right Lung location: upper lobe of lung Qualified Code(s): J18.9 - Pneumonia, unspecified organism (3) Pleural effusion: Status: Acute Plan Community-acquired pneumonia -Consolidation in the inferior left upper lobe and superior left lower lobe on CT chest -Continue Rocephin and azithromycin - sputum cx and gram stain pending Negtaive urine legionella and bacterial antigens -Wheezing is much improved today with standing nebulization CHF Increase Lasix to 60 mg IV every 12 -Cardiac echocardiogram with EF 45% and There appeared to be ?lateral wall akinesis. - patients states he has never been diagnosed with ND in the past however on asking specifically relates episodes of chest pain 4 years ago and reducing exercise capapcity over the past 4-5 months wherein he has difficulty ambulating even 200ft without getting SOB. This could be represnattive of CHF &/or angina equivalent Will likely need stress test once CHF optimized for further evaluation NSTEMI -No chest pain complaints -Baseline troponin was 36, 120-minute 35.54, 6-hour 35.5 -EKG shows sinus rhythm, with first-degree AV block, left axis deviation, right bundle branch block B/L pleural effusions , small, for now management with diuresis , likely related to CHF if continues to increase in spite of increase in diuresis will likely need thoracentesis Type 2 diabetes mellitus, low-dose sliding scale Attestations Medical Necessity Statement*: Ongoing need for IV diuresis, IV antibiotics Coding Level of Care Code Acute Electrical Panel Builder for [employer] Fwd Diagnoses CHF (congestive heart failure) I50.9 Community acquired pneumonia J18.9 Laterality: right Lung location: upper lobe of lung Pleural effusion J90
[2021-06-13 20:45] LABS: Glucose Point of Care 194 mg/dL (70-110)
[2021-06-14] VITALS (12 sets, daily range): BP systolic 118–154; BP diastolic 61–71; PULSE 60–69; RESP 16–18; TEMP 36.3–36.8; O2SAT 93–97
[2021-06-14] MEDS: cefTRIAXone 1,000 MG in sodium chloride 0.9% (plus) 50 ML 100 MG IV (00:16)
[2021-06-14] MEDS: enoxaparin 40 mg/0.4 mL Syringe SUBCUT (00:17)
[2021-06-14] MEDS: pantoprazole 40 mg SDV IVP (00:17)
[2021-06-14] MEDS: azithromycin 500 MG in sodium chloride 0.9% 250 ML 250 MG IV (01:04)
[2021-06-14] MEDS: ipratropium-albuterol 3 mL Neb INHALATION ×3 (02:58→14:18)
[2021-06-14 06:28] LABS: Glucose Point of Care 139 mg/dL (70-110)
[2021-06-14 06:42] LABS: Basophils # 0.1 10^3/uL (0.0-0.1); Basophils % 0.5 %; Eosinophils # 0.2 10^3/uL (0.0-0.8); Hematocrit 39.1 % (42.0-52.0); Lymphocytes # 2.7 10^3/uL (0.8-4.8); Lymphocytes % 29.3 %; Mean Corpuscular HGB Conc 30.7 g/dL (30.0-36.0); Mean Corpuscular Hemoglobin 26.4 pg (28.0-34.0); Mean Corpuscular Volume 85.9 fl (80-94); Mean Platelet Volume 9.7 fL (7.4-10.4); Monocytes # 0.8 10^3/uL (0.2-0.9); Monocytes % 9.2 %; Neutrophils # 5.37 10^3/uL (1.8-7.7); Neutrophils % 58.7 %; Nucleated Red Blood Cells % 0 %; Platelet Count 266 10^3/cmm (130-400); Red Blood Count 4.55 10^6/uL (4.1-5.3); Red Cell Distribution Width 13.3 % (12.1-15.1); White Blood Count 9.2 10^3/uL (4.0-10.0)
[2021-06-14 07:19] LABS: Alanine Aminotransferase 11 U/L (0-41); Albumin Level 3.5 g/dL (3.5-5.2); Alkaline Phosphatase 115 IU/L (40-130); Anion Gap 14.8 (5-19); Aspartate Amino Transferase 17 U/L (0-40); Blood Urea Nitrogen 33 mg/dL (8-23); Calcium 8.6 mg/dL (8.5-10.5); Carbon Dioxide 30 mmol/L (22-29); Chloride 98 mmol/L (98-107); Globulin 2.3 g/dL (1.3-4.6); Glucose 159 mg/dL (65-115); Magnesium 2.4 mg/dL (1.7-2.3); Osmolality Calculated 299 mOsm/kg (285-295); Phosphorus 4.2 mg/dL (2.5-4.5); Potassium 3.8 mmol/L (3.5-5.1); Sodium 139 mmol/L (136-145); Total Bilirubin 0.2 mg/dL (0.15-1.2); Total Protein 5.8 g/dL (6.6-8.7)
[2021-06-14] MEDS: FUROsemide 10 mg/mL SDV 4mL 60 MG IVP (09:34)
[2021-06-14] MEDS: docusate sodium 100 mg Capsule PO ×2 (10:45→17:03)
[2021-06-14 11:23] LABS: Glucose Point of Care 199 mg/dL (70-110)
[2021-06-14] MEDS: insulin lispro 100 unit/1 mL SUBCUT ×2 (13:05→17:03)
[2021-06-14 16:59] LABS: Glucose Point of Care 149 mg/dL (70-110)
--- NOTE | 2021-06-14 18:34 | PM.PN ---
Subjective Subjective: feels alright today, no new complaints, urine output 1500 cc with increased lasix Medications: Reviewed: Yes Vitals/I&O/Wt Last Vital Signs Temp 98.2 F 06/14/21 16:00 Pulse 63 06/14/21 16:00 Resp 18 06/14/21 16:00 BP 118/71 06/14/21 16:00 Pulse Ox 96 06/14/21 16:00 06/14/21 06/14/21 06/14/21 06:59 14:59 22:59 Intake Total 300 / 1710 1200 / 1200 Output Total 925 / 1300 250 / 250 Balance -625 / 410 950 / 950 Physical Exam Narrative: GEN: Awake, alert and oriented, no acute distress CVS: S1S2 N RS: CTA B/L all areas Abd: Soft, nt/nd , bs+ NYLON MENDER: no focal neuro deficits Data : 06/14/21 06:06 06/14/21 06:06 A&P Assessment and plan (1) CHF (congestive heart failure): Status: Acute (2) Community acquired pneumonia: Status: Acute Qualifiers: Laterality: right Lung location: upper lobe of lung Qualified Code(s): J18.9 - Pneumonia, unspecified organism (3) Pleural effusion: Status: Acute Plan Community-acquired pneumonia -Consolidation in the inferior left upper lobe and superior left lower lobe on CT chest -Continue Rocephin for 5 days, completed azithromycin x 3 days - sputum cx and gram stain pending Negtaive urine legionella and bacterial antigens -Wheezing is much improved today with standing nebulization CHF diureing well, change iv lasix to po 80mg BID -Cardiac echocardiogram with EF 45% and There appeared to be ?lateral wall akinesis. - patients states he has never been diagnosed with TN in the past however on asking specifically relates episodes of chest pain 4 years ago and reducing exercise capapcity over the past 4-5 months wherein he has difficulty ambulating even 200ft without getting SOB. This could be represnattive of CHF &/or angina equivalent Will likely need stress test once CHF optimized for further evaluation NSTEMI -No chest pain complaints, likely type 2 TN from CHF -Baseline troponin was 36, 120-minute 35.54, 6-hour 35.5 -EKG shows sinus rhythm, with first-degree AV block, left axis deviation, right bundle branch block B/L pleural effusions , small, for now management with diuresis , likely related to CHF Type 2 diabetes mellitus, low-dose sliding scale Attestations Medical Necessity Statement*: change iv to po diuretics and monitor for clinical response Coding Level of Care Code Acute Central Sterile Technician for [facility] Fwd Diagnoses CHF (congestive heart failure) I50.9 Community acquired pneumonia J18.9 Laterality: right Lung location: upper lobe of lung Pleural effusion J90
[2021-06-14 20:45] LABS: Glucose Point of Care 236 mg/dL (70-110)
[2021-06-15] VITALS (10 sets, daily range): BP systolic 146–154; BP diastolic 65–69; PULSE 54–68; RESP 16–18; TEMP 36.3–37.1; O2SAT 91–96
[2021-06-15] MEDS: cefTRIAXone 1,000 MG in sodium chloride 0.9% (plus) 50 ML 100 MG IV (02:10)
[2021-06-15] MEDS: enoxaparin 40 mg/0.4 mL Syringe SUBCUT (02:10)
[2021-06-15] MEDS: pantoprazole 40 mg SDV IVP (02:41)
[2021-06-15] MEDS: ipratropium-albuterol 3 mL Neb INHALATION ×4 (02:43→21:15)
--- NOTE | 2021-06-15 04:00 | XR_ITS ---
WS: [id number] CHEST XRAY TECHNIQUE: Portable chest. CLINICAL INFORMATION: follow up pulm edema COMPARISON: June 13, 2021 FINDINGS: Heart: Normal cardiac silhouette. Aortic calcification. Lungs: Advanced chronic emphysematous changes. Improved bilateral lower lobe infiltrates compared to previous. Small bilateral pleural effusions. No focal consolidation. Bones: Osteopenia. XR/XR chest 1V portable [id number] IMPRESSION: 1. Improved pulmonary edema compared to previous with small residual pleural e ffusions. 2. No focal consolidation. 3. No other significant changes.
[2021-06-15 06:01] LABS: Basophils # 0.1 10^3/uL (0.0-0.1); Basophils % 0.6 %; Eosinophils # 0.3 10^3/uL (0.0-0.8); Eosinophils % 3.3 %; Hematocrit 39.3 % (42.0-52.0); Hemoglobin 12.3 g/dL (11.7-16.6); Lymphocytes # 2.8 10^3/uL (0.8-4.8); Lymphocytes % 27.2 %; Mean Corpuscular HGB Conc 31.3 g/dL (30.0-36.0); Mean Corpuscular Hemoglobin 26.4 pg (28.0-34.0); Mean Corpuscular Volume 84.3 fl (80-94); Mean Platelet Volume 10.3 fL (7.4-10.4); Monocytes # 0.8 10^3/uL (0.2-0.9); Monocytes % 8.1 %; Neutrophils # 6.18 10^3/uL (1.8-7.7); Neutrophils % 60.5 %; Nucleated Red Blood Cells % 0 %; Platelet Count 282 10^3/cmm (130-400); Red Blood Count 4.66 10^6/uL (4.1-5.3); Red Cell Distribution Width 13.2 % (12.1-15.1); White Blood Count 10.2 10^3/uL (4.0-10.0)
[2021-06-15 06:30] LABS: Alanine Aminotransferase 15 U/L (0-41); Albumin Level 3.4 g/dL (3.5-5.2); Alkaline Phosphatase 108 IU/L (40-130); Anion Gap 15.9 (5-19); Aspartate Amino Transferase 16 U/L (0-40); Blood Urea Nitrogen 35 mg/dL (8-23); Calcium 9.3 mg/dL (8.5-10.5); Carbon Dioxide 28 mmol/L (22-29); Chloride 100 mmol/L (98-107); Globulin 2.6 g/dL (1.3-4.6); Glucose 163 mg/dL (65-115); Osmolality Calculated 302 mOsm/kg (285-295); Potassium 3.9 mmol/L (3.5-5.1); Sodium 140 mmol/L (136-145); Total Bilirubin 0.2 mg/dL (0.15-1.2)
[2021-06-15 06:39] LABS: Glucose Point of Care 161 mg/dL (70-110)
--- NOTE | 2021-06-15 08:43 | PC.RESP ---
RT Shift Note Frequent safety and respiratory rounds continue. Orders completed as indicated. Patient monitored pre and post treatments throughout shift. Patient [Did.] tolerate treatments appropriately. Condition [.DidNotChange]. Patient and/or medical sales representative educated on respiratory treatment and medications. Patient and/or medical sales representative [verbalized understanding Will continue to monitor patient progress.
[2021-06-15] MEDS: FUROsemide 40 mg Tablet 80 MG PO ×2 (09:24→15:50)
[2021-06-15] MEDS: insulin lispro 100 unit/1 mL SUBCUT ×3 (09:25→18:10)
[2021-06-15] MEDS: docusate sodium 100 mg Capsule PO ×2 (09:25→18:10)
--- NOTE | 2021-06-15 11:49 | PC.SOCIAL ---
IMM Update Pg. 2 of IMM Updated. Patient resting with eyes closed, did not disturb, copy left at bedside for patient.
[2021-06-15 11:55] LABS: Glucose Point of Care 212 mg/dL (70-110)
--- NOTE | 2021-06-15 12:20 | USCV_ITS ---
Brennon Dueñas Age: 81 Gender: M : 1940 Exam Date: 06/15/2021 12:49 Ordering Phys: Nahum Galindo MD Technologist: Exam Location: [facility] [place] Indication: EF BP: 134 / 72 HR: 49 Rhythm: Sinus Technical Quality: Adequate MEASUREMENTS (Male / Female) Normal Values 2D ECHO LV Ejection Fraction MOD 2C 29.3 % LV Ejection Fraction 2C AL 29.1 % FINDINGS Left Ventricle Mild dilated left ventricular cavity size. Severely decreased left ventricular systolic function. Left ventricular ejection fraction is estimated at 25 % visually and 28% by modified biplane method. There is moderate diffuse hypokinesis with severe hypokinesis of mid anterolateral, apical lateral, mid anteroseptal, apical septal, and apical noriega. Right Ventricle Normal right ventricular size and systolic function. Right Atrium Normal right atrial size. Left Atrium Left atrium not well visualized. Probably mildly increased left atrial size. Mitral Valve Mitral valve not well visualized. Aortic Valve Aortic valve not well visualized. Tricuspid Valve Tricuspid valve not well visualized. Pulmonic Valve Pulmonic valve not well visualized. Pericardium No pericardial effusion. Aorta Aorta not well visualized. CONCLUSIONS 1. This is a limited echocardiogram with ultrasound enhancing agent. 2. Mildly dilated left ventricular cavity size. Severely decreased left ventricular systolic function. Left ventricular ejection fraction is estimated at 25 % visually and 28% by modified biplane method. There is moderate diffuse hypokinesis with severe hypokinesis of mid anterolateral, apical lateral, mid anteroseptal, apical septal, and apical noriega. Kori Rodriguez MD (Electronically Signed) Final Date: 15 June 2021 17:02 S
--- NOTE | 2021-06-15 12:26 | P.PN_ITS ---
Subjective Subjective: Patient was seen and examined this morning, says that shortness of breath is significantly improved, currently is able to ambulate much better without significant shortness of breath, denies any chest pain, his other vitals and labs have been reviewed. Medications: Reviewed: Yes Medication Review Details: Generic Name Dose Route Start Last Admin Trade Name Cecilia PRN Reason Stop Dose Admin Albuterol/Ipratrop ium 3 ml 06/12/21 21:00 06/15/21 14:22 Ipratropium-Albu terol 3 Ml Neb INHALATION 3 ml Q6H.RESPIRATORY S CH Administration Docusate Sodium 100 mg 06/11/21 09:00 06/15/21 09:25 Docusate Sodium 100 Mg Capsule PO 100 mg BID YARY Administration Enoxaparin Sodium 40 mg 06/11/21 02:00 06/15/21 02:10 Enoxaparin 40 Mg /0.4 Ml Syringe SUBCUT 40 mg Q24H YARY Administration Furosemide 80 mg 06/15/21 08:00 06/15/21 15:50 Furosemide 40 Mg Tablet PO 80 mg BID@08,16 YARY Administration Ceftriaxone Sodium 1,000 mg/ 50 mls @ 100 mls/ hr 06/12/21 01:00 06/15/21 02:40 Sodium Chloride IV Infused Q24H YARY Infusion Protocol Insulin Human Lisp ro 0 unit 06/11/21 08:00 06/15/21 13:38 Insulin Lispro 1 00 Unit/1 Ml SUBCUT 4 unit TIDWM YARY Administration Protocol Pantoprazole Sodiu m 40 mg 06/11/21 02:00 06/15/21 02:41 Pantoprazole 40 Mg Sdv IVP 40 mg Q24H YARY Administration Vitals/I&O/Wt Last Vital Signs Temp 97.4 F L 06/15/21 07:37 Pulse 65 06/15/21 08:42 Resp 17 06/15/21 08:42 BP 150/66 06/15/21 07:37 Pulse Ox 94 06/15/21 08:42 06/14/21 06/15/21 06/15/21 22:59 06:59 14:59 Intake Total 240 / 1440 50 / 1490 240 / 240 Output Total 550 / 800 360 / 1160 Balance -310 / 640 -310 / 330 240 / 240 Physical Exam Const: COMMON NORMALS: patient oriented x3 HENMT: COMMON NORMALS: normocephalic, atraumatic, hearing grossly normal bilaterally and external ears normal HEAD & SCALP: normocephalic and atraumatic EXTERNAL EAR: Yes external ears normal Eye: COMMON NORMALS: no scleral icterus GENERAL EYE: appearance normal, bot h eyes and all related structures Chest: COMMONS NORMALS: normal inspection of the chest and normal palpation of entire chest wall CHEST: Yes Symmetrical chest wall rise Resp: COMMON NORMALS: normal respiratory effort, No retractions, No use of accessory muscles and clear to auscultation bilaterally EFFORT & INSPECTION: Yes symmetric chest movement AUSCULTATION: clear to auscultation bilaterally OTHER: Diminished Air entry b/l Cardio: COMMON NORMALS: regular rate, regular rhythm, S1 normal heart sound present, S2 normal heart sound present, No gallops present (Cardio), No murmurs present (Cardio), No rub (Cardio) and Peripheral pulses 2+ throughout RATE: regular rate RHYTHM: regular rhythm HEART SOUNDS: S1 normal heart sound present and S2 normal heart sound present PERIPHERAL PULSES: Peripheral pulses 2+ throughout GI: COMMON NORMALS: Normal to inspection, nondistended, normoactive bowel sounds present, Soft to palpation, non-tender, No hepatosplenomegaly present and no masses AUSCULTATION: Yes normoactive bowel sounds PALPATION: Yes Soft to palpation and Yes No hepatosplenomegaly present RECTAL EXAM: Yes deferred Extremity: COMMON NORMALS: no clubbing, cyanosis or edema and no pedal edema Neuro: COMMON NORMALS: patient oriented x3 Data : 06/15/21 05:04 06/15/21 05:04 A&P Assessment and plan (1) CHF (congestive heart failure): Status: Acute (2) Community acquired pneumonia: Status: Acute Qualifiers: Laterality: right Lung location: upper lobe of lung Qualified Code(s): J18.9 - Pneumonia, unspecified organism (3) Pleural effusion: Status: Acute Plan # New onset 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 Denies any known prior history of coronary artery disease 2D echo: EF 45%, possible lateral wall akinesis Follow-up repeat 2D echo with contrast: Strict intake output charting Fluid restriction 1500 cc K>4, MG >2 Continue telemetry monitoring Continue Lasix 80 mg p.o. twice daily Appreciate cardiology inputs #Community-acquired pneumonia -Consolidation in the inferior left upper lobe and superior left lower lobe on CT chest -Continue Rocephin for 5 days, completed azithromycin x 3 days - sputum cx and gram stain pending Negtaive urine legionella and bacterial antigens Continue DuoNebs #Moderate to large bilateral pleural effusions: Likely secondary to decompensated heart failure: Chest x-ray has shown improvement, clinically patient has some significant improvement in shortness of breath. Continue diuresis for now. Continue to monitor chest x-ray # NSTEMI type II: Likely secondary to decompensated heart failure. -Denies any chest pain -Baseline troponin was 36, 120-minute 35.54, 6-hour 35.5 -EKG shows sinus rhythm, with first-degree AV block, left axis deviation, right bundle branch block # Type 2 diabetes mellitus, low-dose sliding scale #CODE STATUS full code #DVT prophylaxis on Lovenox Attestations Medical Necessity Statement*: Patient is still in hospital for management of decompensated heart failure , pneumonia. Coding Level of Care Code Acute Special Trackwork Blacksmith for [facility] Fwd Exam Comprehensive Diagnoses CHF (congestive heart failure) I50.9 Community acquired pneumonia J18.9 Laterality: right Lung location: upper lobe of lung Pleural effusion J90
[2021-06-15] MEDS: perflutren protein-a microsphr 0.22 mg/mL SDV 3 mL IV (13:48)
[2021-06-15 17:41] LABS: Glucose Point of Care 146 mg/dL (70-110)
--- NOTE | 2021-06-15 18:40 | PM.CONSULT ---
Providers/Reason For Consult Consulting Physician/Specialty*: Dr. Rodriguez, cardiology Reason for Consult*: CHF, Newly diagnosed cardiomyopathy Attending Physician: Nahum Galindo MD Primary Care Provider: Abigail Lunsford NP History of Present Illness History of Present Illness Brennon Dueñas is a 81 year old male with past medical history of COPD, insulin-dependent type 2 diabetes mellitus, hypertension, who presented to [facility] on 06/15/21 due to shortness of breath.?Over the last few weeks, he has experienced increasing exertional shortness of breath, with orthopnea, paroxysmal nocturnal dyspnea, some lower extremity edema. Since admission he has been diuresed and echo shows severely decreased LV function wih RWMA. He has had a nonproductive cough, has been vaccinated for COVID. He denies any chest pain, no palpitations. No prior history of smoking. Patient feels better. Review of Systems Const: Denies: fever(s) Eyes: Denies: change in vision or blurry vision ENMT: Denies: nasal congestion Card: Denies: chest pain, palpitations or pre-syncope Resp: Reports: dyspnea and non-productive cough; Denies: wheezing or hemoptysis GI: Denies: abdominal pain, nausea, vomiting, diarrhea, constipation or hematochezia : Denies: flank pain, difficulty urinating, dysuria or urinary frequency Musc: Denies: neck pain or back pain Skin/Breast: Denies: rash Neuro: Denies: headache(s), dizziness or vertigo Psych: Denies: anxiety Endo: Denies: polyuria or polydipsia Medications/Allergies Home Medications Medication Instructions Recorded Confirmed Last Taken Type albuterol sulfate 90 mcg/actuation 1 puff INHALATION Q6H PRN 03/17/20 06/10/21 07/23/20 History aerosol inhaler insulin degludec 200 unit/mL (3 40 unit SUBCUT PRN PRN 03/17/20 06/10/21 07/22/20 History mL) subcutaneous pen aspirin 81 mg tablet,delayed 81 mg PO DAILY 05/01/20 06/10/21 06/09/21 History release cholecalciferol (vitamin D3) 100 100 mcg PO DAILY 05/01/20 06/10/21 06/09/21 History mcg (4,000 unit) capsule (Vitamin D3) cilostazol 50 mg tablet 50 mg PO DAILY 05/01/20 06/10/21 06/09/21 History furosemide 20 mg tablet 20 mg PO DAILY 05/01/20 06/10/21 06/09/21 History lisinopril 20 mg tablet 20 mg PO DAILY 05/01/20 06/10/21 06/09/21 History Diabetic shoes #1 ea 07/01/20 06/10/21 Unknown Rx fit for left diabetic shoe and #1 ea 10/23/20 06/10/21 Unknown Rx inserts Allergies Allergy/AdvReac Type Severity Reaction Status Date / Time codeine Allergy Unknown Unknown Verified 06/10/21 11:12 Current Medications Generic Name Dose Route Start Last Admin Trade Name Freq PRN Reason Stop Dose Admin Albuterol/Ipratropium 3 ml 06/12/21 21:00 06/15/21 14:22 Ipratropium-Albuterol 3 Ml Neb INHALATION 3 ml Q6H.RESPIRATORY YARY Administration Docusate Sodium 100 mg 06/11/21 09:00 06/15/21 18:10 Docusate Sodium 100 Mg Capsule PO 100 mg BID YARY Administration Enoxaparin Sodium 40 mg 06/11/21 02:00 06/15/21 02:10 Enoxaparin 40 Mg/0.4 Ml Syringe SUBCUT 40 mg Q24H YARY Administration Furosemide 80 mg 06/15/21 08:00 06/15/21 15:50 Furosemide 40 Mg Tablet PO 80 mg BID@08,16 YARY Administration Ceftriaxone Sodium 1,000 mg/ 50 mls @ 100 mls/hr 06/12/21 01:00 06/15/21 02:40 Sodium Chloride IV Infused Q24H YARY Infusion Protocol Insulin Human Lispro 0 unit 06/11/21 08:00 06/15/21 18:10 Insulin Lispro 100 Unit/1 Ml SUBCUT 2 unit TIDWM YARY Administration Protocol Pantoprazole Sodium 40 mg 06/11/21 02:00 06/15/21 02:41 Pantoprazole 40 Mg Sdv IVP 40 mg Q24H YARY Administration PFSH Acute PFSH: Medical History (Updated 06/15/21 @ 18:43 by Kori Rodriguez MD) COPD (chronic obstructive pulmonary disease) Diabetic polyneuropathy associated with type 2 diabetes mellitus History of atrial fibrillation Hypertension Venous insufficiency Surgical History History of foot surgery History of hip surgery Status post bilateral hernia repair Social History Smoking and tobacco status: former smoker Household members: none Marital status: / Vitals/I&O/Wt Last Vital Signs Temp 97.6 F 06/15/21 12:00 Pulse 68 06/15/21 14:22 Resp 16 06/15/21 14:22 BP 150/69 06/15/21 12:00 Pulse Ox 96 06/15/21 14:22 06/15/21 06/15/21 06/15/21 06:59 14:59 22:59 Intake Total 50 / 1490 480 / 480 Output Total 360 / 1160 Balance -310 / 330 480 / 480 Physical Exam Narrative: GENERAL: Averagely built and averagely nourished in no acute distress HEENT: No pallor or icterus. NECK: Mild JVD, No carotid bruit. CARDIOVASCULAR SYSTEM: S1-S2 regular. No murmur or gallops. RESPIRATORY SYSTEM: Chest clear to auscultation except at bases. No wheezes or rhonchi heard. No use of accessory muscles. ABDOMEN: Soft, nontender and nondistended. Normal bowel sounds present. EXTREMITIES: No cyanosis or clubbing. [No edema]. No signs of chronic venous insufficiency. KNITTED CLOTH EXAMINER: Patient is alert oriented ?3. No focal neurological deficits. SKIN: Normal turgor and temperature. PSYCH: Normal insight and judgment. Data : 06/15/21 05:04 06/15/21 05:04 A&P Assessment and plan (1) CHF (congestive heart failure): Newly diagnosed cardiomyopathy with regional wall motion abnormality. -EKG with bifascicular block -plan for [facility]. -Risks and benefits were discussed with the patients. Alternate management options were discussed with the patient as well. Possible complications of hematoma, bruising, perforation, urgent bypass sx, AL, stroke or were reviewed with the patient as well. Plan is to proceed for the procedure at the earliest. Status: Acute (2) Hypertension: Status: Acute Plan Type 2 diabetes mellitus Pleural effusion Bifascicular block COPD Thank you for allowing me to participate in patient's care. Please feel free to call with questions or concerns. Coding Level of Care Code New Pt Acute Infectious Waste Technician for Chg Fwd Patient Type New History Comprehensive Exam Comprehensive Medical Decision Making High Complexity Diagnoses CHF (congestive heart failure) I50.9 Hypertension I10
[2021-06-15 20:59] LABS: Glucose Point of Care 195 mg/dL (70-110)
[2021-06-16] VITALS (18 sets, daily range): BP systolic 132–167; BP diastolic 58–80; PULSE 57–69; RESP 14–20; TEMP 36.4–36.9; O2SAT 92–98
[2021-06-16] MEDS: pantoprazole 40 mg SDV IVP (01:17)
[2021-06-16] MEDS: cefTRIAXone 1,000 MG in sodium chloride 0.9% (plus) 50 ML 100 MG IV (01:17)
[2021-06-16] MEDS: enoxaparin 40 mg/0.4 mL Syringe SUBCUT (01:17)
[2021-06-16] MEDS: ipratropium-albuterol 3 mL Neb INHALATION ×4 (03:05→21:10)
[2021-06-16 06:32] LABS: Basophils # 0.1 10^3/uL (0.0-0.1); Basophils % 0.9 %; Eosinophils # 0.3 10^3/uL (0.0-0.8); Eosinophils % 3.1 %; Hemoglobin 12.2 g/dL (11.7-16.6); Lymphocytes # 2.7 10^3/uL (0.8-4.8); Mean Corpuscular HGB Conc 30.5 g/dL (30.0-36.0); Mean Corpuscular Hemoglobin 26.6 pg (28.0-34.0); Mean Corpuscular Volume 87.3 fl (80-94); Mean Platelet Volume 9.8 fL (7.4-10.4); Monocytes # 0.9 10^3/uL (0.2-0.9); Monocytes % 8.6 %; Neutrophils # 6.01 10^3/uL (1.8-7.7); Nucleated Red Blood Cells % 0 %; Platelet Count 260 10^3/cmm (130-400); Red Blood Count 4.58 10^6/uL (4.1-5.3); Red Cell Distribution Width 13.2 % (12.1-15.1)
[2021-06-16 06:40] LABS: INR 1.06 (0.8-1.2)
[2021-06-16 06:48] LABS: Glucose Point of Care 133 mg/dL (70-110)
[2021-06-16 06:51] LABS: Anion Gap 15.2 (5-19); Blood Urea Nitrogen 31 mg/dL (8-23); Calcium 8.5 mg/dL (8.5-10.5); Carbon Dioxide 29 mmol/L (22-29); Chloride 100 mmol/L (98-107); Glucose 149 mg/dL (65-115); Osmolality Calculated 299 mOsm/kg (285-295); Potassium 4.2 mmol/L (3.5-5.1); Sodium 140 mmol/L (136-145)
[2021-06-16] MEDS: aspirin 325 mg Tablet PO (10:24)
[2021-06-16] MEDS: docusate sodium 100 mg Capsule PO ×2 (10:24→18:37)
[2021-06-16] MEDS: metoprolol succinate ER (24 HR) 25 mg Tablet 12.5 MG PO (10:24)
--- NOTE | 2021-06-16 11:09 | PM.PN ---
Subjective Subjective: Patient was seen and examined this morning, he was very tired today as he was not able to sleep last night Because of constant disturbance. Says he feels fine. Medications: Reviewed: Yes Medication Review Details: Generic Name Dose Route Start Last Admin Trade Name Cecilia PRN Reason Stop Dose Admin Albuterol/Ipratrop ium 3 ml 06/12/21 21:00 06/15/21 14:22 Ipratropium-Albu terol 3 Ml Neb INHALATION 3 ml Q6H.RESPIRATORY S CH Administration Docusate Sodium 100 mg 06/11/21 09:00 06/15/21 09:25 Docusate Sodium 100 Mg Capsule PO 100 mg BID YARY Administration Enoxaparin Sodium 40 mg 06/11/21 02:00 06/15/21 02:10 Enoxaparin 40 Mg /0.4 Ml Syringe SUBCUT 40 mg Q24H YARY Administration Furosemide 80 mg 06/15/21 08:00 06/15/21 15:50 Furosemide 40 Mg Tablet PO 80 mg BID@08,16 YARY Administration Ceftriaxone Sodium 1,000 mg/ 50 mls @ 100 mls/ hr 06/12/21 01:00 06/15/21 02:40 Sodium Chloride IV Infused Q24H YARY Infusion Protocol Insulin Human Lisp ro 0 unit 06/11/21 08:00 06/15/21 13:38 Insulin Lispro 1 00 Unit/1 Ml SUBCUT 4 unit TIDWM YARY Administration Protocol Pantoprazole Sodiu m 40 mg 06/11/21 02:00 06/15/21 02:41 Pantoprazole 40 Mg Sdv IVP 40 mg Q24H YARY Administration Vitals/I&O/Wt Last Vital Signs Temp 97.5 F L 06/16/21 08:00 Pulse 57 L 06/16/21 08:05 Resp 18 06/16/21 08:01 BP 142/72 06/16/21 08:00 Pulse Ox 95 06/16/21 08:01 06/15/21 06/16/21 06/16/21 22:59 06:59 14:59 Intake Total 240 / 720 50 / 770 Output Total 1100 / 1100 Balance 240 / 720 -1050 / -330 Physical Exam Const: COMMON NORMALS: patient oriented x3 HENMT: COMMON NORMALS: normocephalic, atraumatic, hearing grossly normal bilaterally and external ears normal HEAD & SCALP: normocephalic and atraumatic EXTERNAL EAR: Yes external ears normal Eye: COMMON NORMALS: no scleral icterus GENERAL EYE: appearance normal, both eyes and all related structures Chest: COMMONS NORMALS: normal inspection of the chest and normal palpation of entire chest wall CHEST: Yes Symmetrical chest wall rise Resp: COMMON NORMALS: normal respiratory effort, No retractions, No use of accessory muscles and clear to auscultation bilaterally EFFORT & INSPECTION: Yes symmetric chest movement AUSCULTATION: clear to auscultation bilaterally OTHER: Diminished Air entry b/l predominantly at the bases Cardio: COMMON NORMALS: regular rate, regular rhythm, S1 normal heart sound present, S2 normal heart sound present, No gallops present (Cardio), No murmurs present (Cardio), No rub (Cardio) and Peripheral pulses 2+ throughout RATE: regular rate RHYTHM: regular rhythm HEART SOUNDS: S1 normal heart sound present and S2 normal heart sound present PERIPHERAL PULSES: Peripheral pulses 2+ throughout GI: COMMON NORMALS: Normal to inspection, nondistended, normoactive bowel sounds present, Soft to palpation, non-tender, No hepatosplenomegaly present and no masses AUSCULTATION: Yes normoactive bowel sounds PALPATION: Yes Soft to palpation and Yes No hepatosplenomegaly present RECTAL EXAM: Yes deferred Extremity: COMMON NORMALS: no clubbing, cyanosis or edema and no pedal edema Neuro: COMMON NORMALS: patient oriented x3 Data : 06/16/21 06:12 06/16/21 06:12 Micro: Microbiology 06/10/21 23:39 Blood Culture - Final Blood NO GROWTH AFTER 5 DAYS 06/10/21 23:42 Blood Culture - Final Blood NO GROWTH AFTER 5 DAYS A&P Assessment and plan (1) CHF (congestive heart failure): Status: Acute (2) Community acquired pneumonia: Status: Acute Qualifiers: Laterality: right Lung location: upper lobe of lung Qualified Code(s): J18.9 - Pneumonia, unspecified organism (3) Pleural effusion: Status: Acute Plan # New onset 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 Denies any known prior history of coronary artery disease 2D echo: EF 45%, possible lateral wall akinesis Follow-up repeat 2D echo with contrast: Strict intake output charting Fluid restriction 1500 cc K>4, MG >2 Continue telemetry monitoring Continue Lasix 80 mg p.o. twice daily Continue metoprolol succinate 12.5 mg p.o. daily Appreciate cardiology inputs Patient is due for coronary angiogram today. #Community-acquired pneumonia -Consolidation in the inferior left upper lobe and superior left lower lobe on CT chest -Continue Rocephin for 5 days, completed azithromycin x 3 days - sputum cx and gram stain pending Negtaive urine legionella and bacterial antigens Continue DuoNebs #Moderate to large bilateral pleural effusions: Likely secondary to decompensated heart failure: Chest x-ray has shown improvement, clinically patient has some significant improvement in shortness of breath. Continue diuresis for now. Continue to monitor chest x-ray # NSTEMI type II: Likely secondary to decompensated heart failure. -Denies any chest pain -Baseline troponin was 36, 120-minute 35.54, 6-hour 35.5 -EKG shows sinus rhythm, with first-degree AV block, left axis deviation, right bundle branch block # Type 2 diabetes mellitus, low-dose sliding scale #CODE STATUS full code #DVT prophylaxis on Lovenox Attestations Medical Necessity Statement*: Patient is to be in hospital for management of decompensated heart failure. Coding Level of Care Code Acute Work Order Detailer for [facility] Fwd Exam Comprehensive Diagnoses CHF (congestive heart failure) I50.9 Community acquired pneumonia J18.9 Laterality: right Lung location: upper lobe of lung Pleural effusion J90
[2021-06-16 12:48] LABS: Glucose Point of Care 186 mg/dL (70-110)
--- NOTE | 2021-06-16 13:28 | XACV_ITS ---
Exam Room: [facility] Ht: 183 cm Wt: 89 kg BSA: 2.14 m2 Gender: Male : 1940 Any Known Allergies: Codeine Exam Priority: Routine Procedure(s): Procedure Description: Diagnostic procedure Procedure Description: Left Heart Catheterization Procedure Description: Aortic Arch Angiography Procedure Description: Coronary Angiography Diagnostic Cath Status: Urgent Diagnostic Findings * Left main artery: Mild luminal irregularities LAD: Subtotal occlusion noted proximal to mid segment. It is heavily calcified. It gives rise to 2 diagonal arteries. First diagonal artery has significant 70% stenosis which is calcified in mid segment. Second diagonal artery has total occlusion. Left circumflex artery: Subtotal occlusion at the ostium and mid segment. Distally totally occluded. RCA: Has diffuse moderate luminal irregularities in the distal vessel.. * INDICATION: New onset congestive heart failure. * Abdominal aortogram: Distal aorta is patent. Right common iliac artery has calcified 80% stenosis. Iliac arteries are tortuous bilaterally. No significant stenosis of the common femoral arteries.. * Coronary angiography shows right dominance. Conclusions 1. Left main artery: Mild luminal irregularities LAD: Subtotal occlusion noted proximal to mid segment. It is heavily calcified. It gives rise to 2 diagonal arteries. First diagonal artery has significant 70% stenosis which is calcified in mid segment. Second diagonal artery has total occlusion. Left circumflex artery: Subtotal occlusion at the ostium and mid segment. Distally totally occluded. RCA: Has diffuse moderate luminal irregularities in the distal vessel.. 2. Severe multivessel coronary artery disease. Recommendations * CT surgery referral for CABG evaluation. * Continue aspirin. Hold Plavix till seen by CT surgery. 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 Interventional RX Recommendation: CABG Diagnostic RX Recommendation: CABG Anticoagulation: Heparin Pressures Phase:Rest AO : 145 / 60 ( 90 ) @ 3:04:00 PM 149 / 60 ( 91 ) @ 3:04:00 PM LV : 151 / 1 / 19 @ 3:04:00 PM 153 / 0 / 22 @ 3:04:00 PM Valves Phase:DefaultPhase AV : 7.0 @ 5:20:11 PM AV Mean Gradient: 9.0 @ 5:20:11 PM Clinical Evaluation EBL: 5mL-10mL Procedural Details Procedure Consent Obtained. Pre-Procedure Time Out. Identified patient by full name and date of as verbalized by the patient/guarantor. Does the consent match the physician's order: Yes. Accurate & Complete Informed Consent: Yes. Inpatient/Outpatient History & Physical on Chart: Yes. Visualize and Verify Site with Patient/Guarantor: N/A. Relevant Radiology Images available: Yes. Pre-op teaching completed and patient verbalized understanding. The risks, benefits, and alternatives of sedation and/or procedure were discussed by physician. The patient agrees to continue. Procedure started. [facility] Clinical Fraility Score: 4: Vulnerable. Master Scheduler Indications: Cardiomyopathy. Chest Pain Symptom Assessment: Atypical Angina. Correct patient, site and procedure confirmed by cath team. Current diagnosis: New Dx Cardiomyopathy. PERRLA. 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 Lungs clear x 5 lobes. IV Site on Arrival: 20 gauge in the right anticubital. IV Fluids: 0.9% NaCl at KVO. 0 mL infused prior to systems testing laboratory technician. Pre Procedural Pulses: bilateral radial was 2+. Pre Procedural Pulses: bilateral dorsalis pedis was 2+. Oxygen started at 2liters/min via nasal canula. right groin was prepped with chloroprep then draped in the usual sterile fashion. right radial was prepped with chloroprep then draped in the usual sterile fashion. Physician notified. Baseline sample Acquired. HR: 65 BPM. Physician arrived. Physician scrubbed in. Immediate Pre-Procedure Time Out. Correct Patient: Yes; Correct Procedure: Yes; Correct Site: Yes; Correct Patient Position: Yes; Correct Supplies: Yes; Dried Flammable Prep: Yes; Blood Products Available: N/A;. Admit Source: In Patient. Lidocaine 1% infiltrated to the right radial. Arterial access obtained. Dr Rodriguez scrubbed in with Dr Galvin to perfrom procedure. A 5 [place] TIG catheter in over wire. Multiple views taken of left coronary artery. Catheter redirected to the RCA. Multiple views taken of right coronary artery. Catheter out. A 5 [place] Angled Pig catheter in over wire. EDP Sample taken: LV 151/1,19; HR: 57 BPM; SpO2: 98%. Pullback taken: LV 153/0,22; AO 145/60(90); Mean: 9mmHg, Peak to Peak: 7mmHg, SEP: 16sec/min; HR: 61 BPM; SpO2: 98%. Catheter out. A 6 [place] 125cm Straight Pig catheter in over wire. Glidewire inserted and positioned in the descending aorta. Aortogram performed in AP @ 20 mL/second for a total of 40 mL. Catheter out. A TR Band was successful obtaining hemostatsis at the Right Radial artery insertion site. Patient's family updated. Post Procedure: Pulses reassessed and unchanged. PERRLA. 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 No VTE prophylaxis required. Medication's Wasted: Lidocaine 1% = 18 mL. Medication's Wasted: Heparin = 1000 u. Medication's Wasted: Nitro = 49.8 mg. Total IV fluids: 25 mL. Post-op diagnosis: Obstructive CAD. Complications: none. Estimated blood loss: 5mL-10mL. Responsiveness - Normal response to verbal stimuli; alert and oriented, PERRLA. Airway - Unaffected, no intervention required; spontaneous ventilation. Circulation: W/N/L, pulses unchanged. Nausea/Vomiting: Yes. Procedure completed. Patient transferred by wheelchair to CPRU. Vital chart was stopped. Access Site Site: Right Radial artery Sheath Size: 6 Fr Hemostasis Method: TR Band Hemostasis Success: Successful Procedure Medications Start: 4:42 PM Stop: 4:42 PM Medication: Versed Amount: 1 mg Route: I.V. Start: 4:42 PM Stop: 4:42 PM Medication: Fentanyl Amount: 50 mcg Route: I.V. Start: 4:46 PM Stop: 4:46 PM Medication: Nitrogylcerin Amount: 200 mcg Route: I.A. Start: 4:48 PM Stop: 4:48 PM Medication: Heparin Amount: 5000 units Route: I.V. I, the attending physician, have reviewed and verified all procedure medications. Yes, all medications given per verbal order History/Risk Factors Hypertension: Yes Dyslipidemia: No Peripheral Arterial Disease (PAD): Yes Myocardial Infarction (TN): No Obesity: No Renal Disease: No Tobacco Use: Former Prior Interventions PCI: No CABG: No Valve Surgery: No Report Signatures Finalized by Rodney Galvin MD on 06/29/2021 07:36 PM
--- NOTE | 2021-06-16 16:40 | W.PM.OPSUD ---
Surgery/Procedure H&P Update DATE OF PROCEDURE: June 16, 2021 DATE H&P PERFORMED: 06/15/21 H&P UPDATE INFORMATION: I have reviewed H&P completed within last 30 days, I have examined patient prior to procedure and No changes to prior documentation PREOP DIAGNOSIS: New onset congestive heart failure PRIMARY INDICATION FOR PROCEDURE: New onset congestive heart failure PLANNED PROCEDURE: Left heart cath with possible percutaneous coronary intervention PATIENT REASSESSED PRIOR TO SEDATION, WITH NO CHANGE NOTED: Yes PHYSICAL EXAM: alert, oriented x 3, clear to auscultation bilaterally and regular rate & rhythm AIRWAY EVAL/ANESTHESIA PLAN: ASA III, Monitored Anesthesia, Local Anesthesia, Risks, benefits & alternatives of sedation and/or procedure discussed and Patient agrees to continue as planned
--- NOTE | 2021-06-16 16:45 | PC.NURSE ---
Called and gave report to Marisol in CSU due to him transferring after the heart cath.
[2021-06-16 18:41] LABS: Glucose Point of Care 177 mg/dL (70-110)
[2021-06-16] MEDS: insulin lispro 100 unit/1 mL SUBCUT (18:42)
--- NOTE | 2021-06-16 19:44 | P.CONIM_ITS ---
Providers/Reason For Consult Consulting Physician/Specialty*: Dr. Gilman/cardiothoracic surgery Reason for Consult*: Coronary artery disease Requesting Physician: Dr. Rodriguez Attending Physician: Nahum Galindo MD Primary Care Provider: Abigail Lunsford NP History of Present Illness History of Present Illness Brennon Dueñas is an 81 year old male whom I been consulted in relation to recent left heart catheterization by Dr. Galvin confirming total occlusion of the circumflex artery and high-grade proximal LAD stenosis with poor runoff distally. He has ejection fraction of approximate 25% by transthoracic echocardiogram. He presented on June 10 with complaints of shortness of breath which have been worsening over the past few weeks. He also noticed some lower extremity edema. Upon presentation it was felt that he was exhibiting signs of CHF. He underwent diuresis with improvement of substantial bilateral pleural effusions. Echocardiogram confirmed generalized wall motion abnormalities and depressed ejection fraction of 25%. The echo revealed mildly dilated left ventricular cavity with moderate diffuse hypokinesia and severe hypokinesia of the mid anterior lateral, apical lateral, mid anteroseptal, apical septal, and apical noriega. Have personally reviewed his left heart catheterization and have conferred with my colleague, Dr. Galvin. Review of Systems 2 Const: Reports: fatigue and malaise; Denies: fever(s) or chills Eyes: Denies: change in vision Card: Reports: edema, swelling of feet/ankles, dyspnea on exertion and orthopnea Resp: Reports: dyspnea and wheezing; Denies: productive cough or hemoptysis : Reports: urinary frequency and urinary urgency; Denies: flank pain Neuro: Denies: headache(s) Medications/Allergies Home Medications Medication Instructions Recorded Confirmed Last Taken Type albuterol sulfate 90 mcg/actuation 1 puff INHALATION Q6H PRN 03/17/20 06/10/21 07/23/20 History aerosol inhaler insulin degludec 200 unit/mL (3 40 unit SUBCUT PRN PRN 03/17/20 06/10/21 07/22/20 History mL) subcutaneous pen aspirin 81 mg tablet,delayed 81 mg PO DAILY 05/01/20 06/10/21 06/09/21 History release cholecalciferol (vitamin D3) 100 100 mcg PO DAILY 05/01/20 06/10/21 06/09/21 History mcg (4,000 unit) capsule (Vitamin D3) cilostazol 50 mg tablet 50 mg PO DAILY 05/01/20 06/10/21 06/09/21 History furosemide 20 mg tablet 20 mg PO DAILY 05/01/20 06/10/21 06/09/21 History lisinopril 20 mg tablet 20 mg PO DAILY 05/01/20 06/10/21 06/09/21 History Diabetic shoes #1 ea 07/01/20 06/10/21 Unknown Rx fit for left diabetic shoe and #1 ea 10/23/20 06/10/21 Unknown Rx inserts Allergies Allergy/AdvReac Type Severity Reaction Status Date / Time codeine Allergy Unknown Unknown Verified 06/10/21 11:12 Current Medications Generic Name Dose Route Start Last Admin Trade Name Freq PRN Reason Stop Dose Admin Albuterol/Ipratropium 3 ml 06/12/21 21:00 06/16/21 14:43 Ipratropium-Albuterol 3 Ml Neb INHALATION 3 ml Q6H.RESPIRATORY YARY Administration Aspirin 325 mg 06/16/21 09:00 06/16/21 10:24 Aspirin 325 Mg Tablet PO 325 mg DAILY YARY Administration Docusate Sodium 100 mg 06/11/21 09:00 06/16/21 18:37 Docusate Sodium 100 Mg Capsule PO 100 mg BID YARY Administration Enoxaparin Sodium 40 mg 06/11/21 02:00 06/16/21 01:17 Enoxaparin 40 Mg/0.4 Ml Syringe SUBCUT 40 mg Q24H YARY Administration Furosemide 80 mg 06/15/21 08:00 06/16/21 16:28 Furosemide 40 Mg Tablet PO Not Given BID@08,16 [facility] Ceftriaxone Sodium 1,000 mg/ 50 mls @ 100 mls/hr 06/12/21 01:00 06/16/21 01:47 Sodium Chloride IV Infused Q24H YARY Infusion Protocol Insulin Human Lispro 0 unit 06/11/21 08:00 06/16/21 18:42 Insulin Lispro 100 Unit/1 Ml SUBCUT 2 unit TIDWM YARY Administration Protocol Metoprolol Succinate 12.5 mg 06/16/21 09:00 06/16/21 10:24 Metoprolol Succinate Er (24 Hr) 25 Mg Tablet PO 12.5 mg DAILY YARY Administration Pantoprazole Sodium 40 mg 06/11/21 02:00 02/15/22 01:17 Pantoprazole 40 Mg Sdv IVP 40 mg Q24H YARY Administration PFSH Acute PFSH: Medical History COPD (chronic obstructive pulmonary disease) Diabetic polyneuropathy associated with type 2 diabetes mellitus History of atrial fibrillation Hypertension Venous insufficiency Surgical History History of foot surgery History of hip surgery Status post bilateral hernia repair Social History Smoking and tobacco status: former smoker Household members: none Marital status: / Vitals/I&O/Wt Last Vital Signs Temp 98 F 06/16/21 19:41 Pulse 58 L 06/16/21 19:41 Resp 16 06/16/21 19:41 BP 132/59 06/16/21 19:41 Pulse Ox 98 06/16/21 19:41 06/16/21 06/16/21 06/16/21 06:59 14:59 22:59 Intake Total 50 / 770 240 / 240 Output Total 1100 / 1100 Balance -1050 / -330 240 / 240 Physical Exam Const: COMMON NORMALS: patient oriented x3 HENMT: COMMON NORMALS: normocephalic, hearing grossly normal bilaterally and external ears normal HEAD & SCALP: normocephalic EXTERNAL EAR: Yes external ears normal OTHER: Temporal wasting Eye: COMMON NORMALS: Equal, round and reactive pupils present, EOMs intact bilaterally and conjunctivae normal CONJUNCTIVA: Yes conjunctivae normal PUPIL: Yes Equal, round and reactive pupils present Neck/C-Spine: OTHER: Decreased range of motion Chest: COMMONS NORMALS: normal inspection of the chest and normal palpation of entire chest wall Resp: AUSCULTATION: crackles, rales and wheezes OTHER: Decreased breath sounds at the bases left greater than right Cardio: COMMON NORMALS: regular rate, regular rhythm and S1 normal heart sound present RATE: regular rate RHYTHM: regular rhythm HEART SOUNDS: S1 normal heart sound present, no gallops and no rubs GI: COMMON NORMALS: Normal to inspection, nondistended, normoactive bowel sounds present OTHER: Scaphoid abdomen Extremity: COMMON NORMALS: no clubbing, cyanosis or edema; negative for normal to inspection OTHER: Mild clubbing Neuro: COMMON NORMALS: patient oriented x3, moves all extremities, no focal motor deficits and no sensory deficits noted Data : 06/16/21 06:12 06/16/21 06:12 Micro: Microbiology 06/10/21 23:39 Blood Culture - Final Blood NO GROWTH AFTER 5 DAYS 06/10/21 23:42 Blood Culture - Final Blood NO GROWTH AFTER 5 DAYS A&P Assessment and plan (1) CAD (coronary artery disease), [place] coronary artery: 81-year-old gentleman with diabetes mellitus, COPD, CHF with depressed ejection fraction of 25%, and proximal LAD stenosis and subtotal occlusion of the circumflex and what appears to be proximal disease of a high OMB or ramus ve ssel. He has noncritical disease of the dominant RCA. I discussed the option to consider various therapy modalities, Mr. Dueñas was least enthusiastic about CABG. Need, while he does have target vessels, he does have very slow flow in the distal LAD with poor contrast-enhancement so it is unclear as to whether he may have distal disease there as well. Also, given his comorbidities, he would be at a high risk for perioperative complications and most assuredly a more protracted postop course given age and COPD. At this time, he is he does not wish to consider surgical revascularization but was willing to discuss other potential options. I will be available as needed and I greatly appreciate the expertise and consideration by my cardiology colleagues. Status: Acute Consult Attestations Medical Necessity Statement: CHF with severe two-vessel coronary artery disease. Coding Level of Care Code New Pt Acute Computer Terminal Operator for Scotty Montero Patient Type New History Detailed Exam Detailed Medical Decision Making Moderate Complexity Diagnoses CAD (coronary artery disease), [place] coronary artery I25.10 Time Spent (min) 35
[2021-06-16 20:21] LABS: Glucose Point of Care 190 mg/dL (70-110)
[2021-06-17] VITALS (19 sets, daily range): BP systolic 126–163; BP diastolic 60–74; PULSE 58–94; RESP 13–19; TEMP 36.5–36.9; O2SAT 93–100
[2021-06-17] MEDS: cefTRIAXone 1,000 MG in sodium chloride 0.9% (plus) 50 ML 100 MG IV (01:20)
[2021-06-17] MEDS: enoxaparin 40 mg/0.4 mL Syringe SUBCUT (01:21)
[2021-06-17] MEDS: pantoprazole 40 mg SDV IVP (01:23)
[2021-06-17] MEDS: ipratropium-albuterol 3 mL Neb INHALATION ×4 (02:44→20:57)
[2021-06-17 04:08] LABS: Basophils # 0.1 10^3/uL (0.0-0.1); Basophils % 0.8 %; Eosinophils # 0.4 10^3/uL (0.0-0.8); Hematocrit 38.4 % (42.0-52.0); Hemoglobin 11.9 g/dL (11.7-16.6); Lymphocytes # 2.6 10^3/uL (0.8-4.8); Lymphocytes % 25.6 %; Mean Corpuscular Hemoglobin 26.8 pg (28.0-34.0); Mean Corpuscular Volume 86.5 fl (80-94); Mean Platelet Volume 10.1 fL (7.4-10.4); Monocytes # 0.9 10^3/uL (0.2-0.9); Monocytes % 9.1 %; Neutrophils # 6.19 10^3/uL (1.8-7.7); Neutrophils % 60.2 %; Nucleated Red Blood Cells % 0 %; Platelet Count 245 10^3/cmm (130-400); Red Blood Count 4.44 10^6/uL (4.1-5.3); Red Cell Distribution Width 13.2 % (12.1-15.1); White Blood Count 10.3 10^3/uL (4.0-10.0)
[2021-06-17 04:35] LABS: Anion Gap 15.1 (5-19); Blood Urea Nitrogen 39 mg/dL (8-23); Calcium 9.2 mg/dL (8.5-10.5); Carbon Dioxide 27 mmol/L (22-29); Chloride 102 mmol/L (98-107); Glucose 175 mg/dL (65-115); Osmolality Calculated 304 mOsm/kg (285-295); Potassium 4.1 mmol/L (3.5-5.1); Sodium 140 mmol/L (136-145)
--- NOTE | 2021-06-17 06:15 | PC.NURSE ---
Patient admitted with chest pain and need for intervention. MD in at beginning of shift to explain to patient that he will have dr. Herrera consult to decide whether patient should have an invasive stent placed or if he will have open heart surgery. Patient a bit confused on what to do as at his age it is quite a risky sugery to do. Patient will await talking to Dr. Herrera.
[2021-06-17 06:52] LABS: Glucose Point of Care 161 mg/dL (70-110)
[2021-06-17] MEDS: FUROsemide 40 mg Tablet 80 MG PO ×2 (08:57→15:35)
[2021-06-17] MEDS: aspirin 325 mg Tablet PO (08:57)
[2021-06-17] MEDS: metoprolol succinate ER (24 HR) 25 mg Tablet 12.5 MG PO (08:58)
[2021-06-17] MEDS: insulin lispro 100 unit/1 mL SUBCUT ×2 (08:58→11:53)
[2021-06-17] MEDS: docusate sodium 100 mg Capsule PO ×2 (08:58→17:38)
--- NOTE | 2021-06-17 09:20 | P.PN_ITS ---
Subjective Subjective: Patient underwent cardiac catheterization yesterday and was found to have nearly occluded circumflex, 99% stenosis of proximal to mid LAD and subtotal occlusion of first diagonal. mild to moderate disease in proximal to mid RCA with severe disease in distal RCA. Dr. Gilman was consulted yesterday evening. Episodes of bradycardia with heart rate dropping in 50s overnight Vitals/I&O/Wt Last Vital Signs Temp 97.9 F 06/17/21 04:00 Pulse 63 06/17/21 09:15 Resp 14 06/17/21 09:15 BP 139/62 06/17/21 04:00 Pulse Ox 93 06/17/21 09:15 06/16/21 06/17/21 06/17/21 22:59 06:59 14:59 Intake Total 120 / 360 100 / 460 Output Total 250 / 250 Balance -130 / 110 100 / 210 Physical Exam Narrative: GENERAL: Averagely built and averagely nourished in no acute distress HEENT: No pallor or icterus. NECK: Mild JVD, No carotid bruit. CARDIOVASCULAR SYSTEM: S1-S2 regular. No murmur or gallops. RESPIRATORY SYSTEM: Chest clear to auscultation except at bases. No wheezes or rhonchi heard. No use of accessory muscles. ABDOMEN: Soft, nontender and nondistended. Normal bowel sounds present. EXTREMITIES: No cyanosis or clubbing. [No edema]. No signs of chronic venous insufficiency. 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 No focal neurological deficits. SKIN: Normal turgor and temperature. PSYCH: Normal insight and judgment. Data : 06/17/21 03:40 06/17/21 03:40 A&P Assessment and plan (1) CAD (coronary artery disease), [place] coronary artery: I spoke at length with the patient and his daughter and decision was made to proceed with high risk PCI of LAD tomorrow. -Patient and his daughter agreed for the procedure. All their questions were answered. Status: Acute (2) CHF (congestive heart failure): Newly diagnosed cardiomyopathy with regional wall motion abnormality. -EKG with bifascicular block -Lasix was restarted -May need to hold metoprolol. Plan to add TERRY/ARB after repeat cardiac catheterization Status: Acute (3) Hypertension: Status: Acute Plan Type 2 diabetes mellitus Pleural effusion Bifascicular block COPD Thank you for allowing me to participate in patient's care. Please feel free to call with questions or concerns. Attestations Medical Necessity Statement*: Needs hospital stay for CHF and coronary artery disease Coding Level of Care Code Established Pt Acute Outpatient Physical Therapist for [facility]g F[facility] Patient Type Established History Comprehensive Exam Comprehensive Medical Decision Making Moderate Complexity Diagnoses CHF (congestive heart failure) I50.9 Hypertension I10 CAD (coronary artery disease), [place] coronary artery I25.10
[2021-06-17 10:05] LABS: Magnesium 2.6 mg/dL (1.7-2.3); NT Pro B Type Natriuretic Pept 1964 pg/mL (0-450)
[2021-06-17] MEDS: clopidogrel 300 mg Tablet 600 MG PO (10:13)
--- NOTE | 2021-06-17 10:35 | PC.SOCIAL ---
IMM update IMM updated with patient. Verbalized an understanding. Copy Pg 2 provided. Initialled, dated, timed, and placed in chart.
[2021-06-17 11:32] LABS: Glucose Point of Care 225 mg/dL (70-110)
--- NOTE | 2021-06-17 13:09 | P.PN_ITS ---
Subjective Subjective: Patient was seen and examined this morning, no acute events overnight, status post coronary angiogram yesterday patient tolerated the procedure well. Medications: Reviewed: Yes Medication Review Details: Generic Name Dose Route Start Last Admin Trade Name Cecilia PRN Reason Stop Dose Admin Albuterol/Ipratrop ium 3 ml 06/12/21 21:00 06/17/21 09:07 Ipratropium-Albu terol 3 Ml Neb INHALATION 3 ml Q6H.RESPIRATORY S CH Administration Aspirin 325 mg 06/16/21 09:00 06/17/21 08:57 Aspirin 325 Mg T ablet PO 325 mg DAILY YARY Administration Docusate Sodium 100 mg 06/11/21 09:00 06/17/21 08:58 Docusate Sodium 100 Mg Capsule PO 100 mg BID YARY Administration Enoxaparin Sodium 40 mg 06/11/21 02:00 06/17/21 01:21 Enoxaparin 40 Mg /0.4 Ml Syringe SUBCUT 40 mg Q24H YARY Administration Furosemide 80 mg 06/17/21 08:00 06/17/21 08:57 Furosemide 40 Mg Tablet PO 80 mg BID@ YARY Administration Ceftriaxone Sodium 1,000 mg/ 50 mls @ 100 mls/ hr 06/12/21 01:00 06/17/21 01:20 Sodium Chloride IV 100 mls/hr Q24H YARY Administration Protocol Insulin Human Lisp ro 0 unit 06/11/21 08:00 06/17/21 11:53 Insulin Lispro 1 00 Unit/1 Ml SUBCUT 6 unit TIDWM YARY Administration Protocol Metoprolol Succina te 12.5 mg 06/16/21 09:00 06/17/21 08:58 Metoprolol Succi fabiana Er (24 Hr) 25 Mg Tablet PO 12.5 mg DAILY YARY Administration Vitals/I&O/Wt Last Vital Signs Temp 97.9 F 06/17/21 04:00 Pulse 64 06/17/21 09:19 Resp 19 H 06/17/21 09:19 BP 148/67 06/17/21 09:19 Pulse Ox 95 06/17/21 09:19 06/16/21 06/17/21 06/17/21 22:59 06:59 14:59 Intake Total 120 / 360 100 / 460 254 / 254 Output Total 250 / 250 Balance -130 / 110 100 / 210 254 / 254 Physical Exam Const: COMMON NORMALS: patient oriented x3 HENMT: COMMON NORMALS: normocephalic, atraumatic and external ears normal HEAD & SCALP: normocephalic and atraumatic EXTERNAL EAR: Yes external ears normal Eye: COMMON NORMALS: no scleral icterus GENERAL EYE: appearance normal, both eyes and all related structures Chest: COMMONS NORMALS: normal inspection of the chest and normal palpation of entire chest wall CHEST: Yes Symmetrical chest wall rise Resp: COMMON NORMALS: normal respiratory effort, No retractions and clear to auscultation bilaterally EFFORT & INSPECTION: Yes symmetric chest movement AUSCULTATION: clear to auscultation bilaterally OTHER: Diminished air entry predominantly at bases. Cardio: COMMON NORMALS: regular rate, regular rhythm, S1 normal heart sound present, S2 normal heart sound present, No gallops present (Cardio), No murmurs present (Cardio), No rub (Cardio) and Peripheral pulses 2+ throughout RATE: regular rate RHYTHM: regular rhythm HEART SOUNDS: S1 normal heart sound present and S2 normal heart sound present PERIPHERAL PULSES: Peripheral pulses 2+ throughout GI: COMMON NORMALS: Normal to inspection, nondistended, normoactive bowel sounds present, Soft to palpation, non-tender, No hepatosplenomegaly present and no masses AUSCULTATION: Yes normoactive bowel sounds PALPATION: Yes Soft to palpation and Yes No hepatosplenomegaly present RECTAL EXAM: Yes deferred Extremity: COMMON NORMALS: no clubbing, cyanosis or edema and no pedal edema Neuro: COMMON NORMALS: patient oriented x3 Data : 06/17/21 03:40 06/17/21 03:40 A&P Assessment and plan (1) CHF (congestive heart failure): Status: Acute (2) Community acquired pneumonia: Status: Acute Qualifiers: Laterality: right Lung location: upper lobe of lung Qualified Code(s): J18.9 - Pneumonia, unspecified organism (3) Pleural effusion: Status: Acute Plan # New onset 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 Denies any known prior history of coronary artery disease 2D echo: EF 45%, possible lateral wall akinesis Repeat 2D echo with contrast:Mildly dilated left ventricular cavity size. Severely decreased left ventricular systolic function. Left ventricular ?ejection fraction is estimated at 25 % visually and 28% by modified biplane method.? There is moderate diffuse hypokinesis with severe hypokinesis of mid anterolateral, apical lateral, mid anteroseptal, apical septal, and apical noriega. S/P CAG : Report awaited Strict intake output charting Fluid restriction 1500 cc K>4, MG >2 Continue telemetry monitoring Continue Lasix 80 mg p.o. twice daily Continue metoprolol succinate 12.5 mg p.o. daily Appreciate cardiology inputs: #Community-acquired pneumonia -Consolidation in the inferior left upper lobe and superior left lower lobe on CT chest -Continue Rocephin for 5 days, completed azithromycin x 3 days - sputum cx and gram stain pending Negtaive urine legionella and bacterial antigens Continue DuoNebs #Moderate to large bilateral pleural effusions: Likely secondary to decompensated heart failure: Chest x-ray has shown improvement, clinically patient has some significant improvement in shortness of breath. Continue diuresis for now. Continue to monitor chest x-ray. # NSTEMI type II: Likely secondary to decompensated heart failure. -Denies any chest pain -Baseline troponin was 36, 120-minute 35.54, 6-hour 35.5 -EKG shows sinus rhythm, with first-degree AV block, left axis deviation, right bundle branch block # Type 2 diabetes mellitus, low-dose sliding scale #CODE STATUS full code #DVT prophylaxis on Lovenox Attestations Medical Necessity Statement*: Patient is in hospital for coronary intervention. Coding Level of Care Code Acute Schedule Maker for [facility] Fwd Diagnoses CHF (congestive heart failure) I50.9 Community acquired pneumonia J18.9 Laterality: right Lung location: upper lobe of lung Pleural effusion J90
[2021-06-17 16:02] LABS: Glucose Point of Care 134 mg/dL (70-110)
[2021-06-17 20:34] LABS: Glucose Point of Care 183 mg/dL (70-110)
[2021-06-18] VITALS (60 sets, daily range): BP systolic 106–172; BP diastolic 41–93; PULSE 50–72; RESP 9–28; O2SAT 84–100
[2021-06-18] MEDS: cefTRIAXone 1,000 MG in sodium chloride 0.9% (plus) 50 ML 100 MG IV (01:01)
[2021-06-18] MEDS: ipratropium-albuterol 3 mL Neb INHALATION ×3 (02:32→21:01)
[2021-06-18 03:07] LABS: Basophils # 0.1 10^3/uL (0.0-0.1); Basophils % 0.7 %; Eosinophils # 0.4 10^3/uL (0.0-0.8); Eosinophils % 3.9 %; Hematocrit 37.5 % (42.0-52.0); Hemoglobin 11.9 g/dL (11.7-16.6); Lymphocytes # 2.3 10^3/uL (0.8-4.8); Lymphocytes % 24.2 %; Mean Corpuscular HGB Conc 31.7 g/dL (30.0-36.0); Mean Corpuscular Hemoglobin 26.7 pg (28.0-34.0); Mean Corpuscular Volume 84.3 fl (80-94); Monocytes # 0.9 10^3/uL (0.2-0.9); Nucleated Red Blood Cells % 0 %; Platelet Count 260 10^3/cmm (130-400); Red Blood Count 4.45 10^6/uL (4.1-5.3); Red Cell Distribution Width 13.3 % (12.1-15.1); White Blood Count 9.7 10^3/uL (4.0-10.0)
[2021-06-18 03:32] LABS: Anion Gap 13.1 (5-19); Blood Urea Nitrogen 34 mg/dL (8-23); Calcium 9.5 mg/dL (8.5-10.5); Carbon Dioxide 30 mmol/L (22-29); Chloride 98 mmol/L (98-107); Glucose 169 mg/dL (65-115); Osmolality Calculated 296 mOsm/kg (285-295); Potassium 4.1 mmol/L (3.5-5.1); Sodium 137 mmol/L (136-145)
--- NOTE | 2021-06-18 06:00 | XR_ITS ---
WS: [id number] Portable AP upright chest, 06/18/2021 Clinical Data: Pleural Effusion Comparison: Portable chest, 06/15/2021. Findings: There is minimal change in the bibasilar opacities which probably represent atelectasis and /or pneumonia. The heart is slightly enlarged. The aortic arch shows calcification and there is minim al tortuosity of the descending thoracic aorta. No nodules or masses are seen. Monitor leads are on t he upper chest. XR/XR chest 1V portable [id number] Impression: 1. Little change in bibasilar pulmonary opacities. 2. Cardiomegaly and atherosclerosis.
[2021-06-18 06:30] LABS: Glucose Point of Care 160 mg/dL (70-110)
--- NOTE | 2021-06-18 06:32 | XACV_ITS ---
Exam Room: [facility] Ht: 183 cm Wt: 89 kg BSA: 2.14 m2 Gender: Male : 1940 Any Known Allergies: Codeine Exam Priority: Routine Procedure(s): Procedure Description: Diagnostic procedure Procedure Description: PCI procedure Procedure Description: Drug Eluting Coronary Stent Procedure Description: PTCA Procedure Description: Coronary Atherectomy Procedure Description: Miscellaneous Procedure Description: Perclose Procedure Description: ACT Procedure Description: pVAD Diagnostic Cath Status: Urgent Diagnostic Findings * This was planned high risk PCI of proximal to mid LAD with orbital arthrectomy and Impella support. For full diagnostic report, please refer to procedure from 06/16/2021. * LAD: Has subtotal occlusion of the proximal to mid LAD. Also was foung to have 90% stenosis of the distal vessel once flow was established. Left circumflex artery has subtotal occlusion proximally and is then totally occluded in the mid to distal segment. RCA was not injected. * Coronary angiography shows right dominance. PCI Status: Urgent PCI Indication: Other Interventional Findings * PROCEDURE DETAIL: We obtained access and left common femoral artery. 14 Jordanian Impella sheath was introduced and Impella was placed before starting the PCI procedure. We then obtained access in right common femoral artery and a 6 Jordanian sheath was introduced. XB 3.5 guide catheter was used to engage the left main artery. Using TelePort microcatheter and run-through wire LAD lesions were crossed. We exchanged run-through wire to Viper wire. Orbital arthrectomy was performed to and proximal to mid LAD. This was followed predilation with 2.25 mm x 12 mm semicompliant balloon. We then placed 3.0 x 30 mm resolute [place] drug-eluting stent in proximal to mid LAD. With establishing flow approximately distal LAD was noted to have severe stenosis. We performed multiple balloon inflations with a 2.25 x 12 mm semicompliant balloon in the distal LAD. This established flow. LAD and distal to apical region was atretic however flow was established all the way to the apical LAD. At this time final angiograms were performed. These showed excellent stent expansion, no residual stenosis and JP-3 flow. Guidewire and guide catheter were removed. This was followed by removal of Impella. We then used a perclose and angioseal to close the left common femoral access site. Hemostasis was achieved. 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 . * INDICATION: 81-year-old man who had presented with new onset congestive heart failure and EF of 25%. Coronary angiogram was performed that showed severe multivessel coronary artery disease including severe proximal to mid LAD stenosis(subtotal), [employer] of left circumflex artery and patent RCA with diffuse mild to moderate luminal irregularities. CT surgery was consulted for possible coronary artery bypass surgery. After discussion with surgery team, patient refused undergoing surgery and was considered high risk given his age and COPD. Detailed discussion regarding risk and benefits of performing high risk PCI to the LAD. Given his multivessel coronary artery disease, severely reduced LV systolic function and need for arthrectomy, we will proceed with performing Impella supported high risk PCI of LAD with orbital arthrectomy. Risks and benefits of the procedure have been discussed with the patient and his daughter. Risks including bleeding, infection, kidney function worsening, coronary artery dissection/perforation, [place], stroke and have been discussed. They understood the risks and benefits and want to proceed with the procedure. * Proximal Left Anterior Descending to Mid Left Anterior Descendin% stenosis treated with a AB TREK 2.25X12 RX BALLOON, and MDT R JOSE 3.0X30 JERI. 0% residual stenosis, JP: 3 flow. * Distal Left Anterior Descendin% stenosis treated with a AB TREK 2.25X12 RX BALLOON. 0% residual stenosis, JP: 3 flow. Conclusions 1. Subtotally occluded Proximal to mid LAD and severe stenosis of the distal LAD. Patient underwent successful revascularization of the LAD with impella support, orbital arthrectomy and JERI x 1. 2. Successful balloon angioplasty of the distal LAD. Recommendations * Continue aspirin and Plavix for atleast 1 year. * High intensity statin therapy. * Guideline directed medical therapy. * Outpatient cardiology follow up in 4 weeks. * Hold diuretics for now as LVEDP is normal. Interventional RX Recommendation: PCI w/o planned CABG Diagnostic RX Recommendation: PCI w/o planned CABG Anticoagulation: Heparin Pressures Phase:Rest AO : 156 / 66 ( 97 ) @ 8:11:00 AM 139 / 72 ( 100 ) @ 8:14:00 AM 129 / 69 ( 93 ) @ 8:16:00 AM 119 / 79 ( 99 ) @ 8:20:00 AM 120 / 58 ( 81 ) @ 8:26:00 AM 87 / 63 ( 73 ) @ 8:32:00 AM 115 / 64 ( 83 ) @ 8:35:00 AM 106 / 65 ( 83 ) @ 8:47:00 AM 84 / 54 ( 65 ) @ 8:51:00 AM 93 / 61 ( 75 ) @ 9:09:00 AM 80 / 56 ( 65 ) @ 9:16:00 AM LV : 167 / -13 / 4 @ 7:58:00 AM Clinical Evaluation EBL: 5mL-10mL Procedural Details Hemodynamic formulas in Rest were re-calculated based on hemoglobin value from 06/18/2021 12:00:00 AM. Pre-Procedure Time Out. Identified patient by full name and date of as verbalized by the patient/guarantor. Does the consent match the physician's order: Yes. Accurate & Complete Informed Consent: Yes. Inpatient/Outpatient History & Physical on Chart: Yes. If H&P is completed, is and addenduem needed: No; If yes, is the addendum complete: N/A. Visualize and Verify Site with Patient/Guarantor: N/A. Relevant Radiology Images available: Yes. Pre-op teaching completed and patient verbalized understanding. The risks, benefits, and alternatives of sedation and/or procedure were discussed by physician. The patient agrees to continue. Procedure started. [facility] Clinical Fraility Score: 4: Vulnerable. Digital Cartographer Indications: ACS > 24 hours. Chest Pain Symptom Assessment: Atypical Angina. Correct patient, site and procedure confirmed by cath team. Current diagnosis: NSTEMI. PERRLA. 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 Lungs clear x 5 lobes. IV Fluids: 0.9% NaCl at KVO. 0 mL infused prior to bottle label inspector. A 18 gauge IV was started in the right anticubital using aseptic technique. Oxygen started at 2liters/min via nasal canula. bilateral groins was prepped with chloroprep then draped in the usual sterile fashion. Physician arrived. Baseline sample Acquired. HR: 66 BPM. Afua Waters RN circulating. Physician scrubbed in. Immediate Pre-Procedure Time Out. Correct Patient: Yes; Correct Procedure: Yes; Correct Site: Yes; Correct Patient Position: Yes; Correct Supplies: Yes; Dried Flammable Prep: Yes; Blood Products Available: N/A;. Lidocaine 1% infiltrated to the left groin. AP Pads placed on the patient. Arterial access obtained with micropuncture set. wire and needle removed. Arterial access obtained with micropuncture set. wire and needle removed. Ultrasound being used to obtain arterial access. Arterial access obtained with micropuncture set. contrast hand injected throuh the micropuncture dilator. Lidocaine 1% infiltrated to the right groin. Ultrasound being used to obtain arterial access. Arterial access obtained with micropuncture set. Perclose x 2 placed in the right femoral access site to be deployed at the end of the case. A 5 cayman islander JR4 catheter in over wire through the left femoral sheath. Catheter removed over the Versacore wire. the 6Fr sheath removed OTW. 10Fr dilator inserted OTW. 10Fr dilator out. 12 Fr dilator inserted OTW. 12Fr Dilator out. 14Fr Sheath inserted OTW and placed in the left femoral artery. Wire out. A 5 cayman islander Angled Pig catheter in over the standard wire through the left femoral sheath. EDP Sample taken: LV 167/-14,4; HR: 64 BPM; SpO2: 100%. Impella wire inserted through the catheter and advanced. Catheter out. Impella CP inserted and advanced OTW. wire out. Impella CP successfully positoned and turned on. standard wire inserted through the right femoral sheath. Sheath upsized to a 7 Fr. wire out. 6 cayman islander XB 3.5 guide catheter was inserted over the wire. wire out. ACT drawn. Results 216 seconds. Therapeutic limits - pre-heparin administration 90-150 seconds and monitoring heparin during a vascular procedure >250 seconds. Runthrough guidewire was advanced through the guide catheter to lesion in the prox LAD. Teleport support catheter inserted and advacned OTW to the LAD. Wire out. CSI Coronary Viper wire inserted through the teleport catheter and advanced to the LAD. Teleport catheter out OTW. CSI Diamondback 1.25mm alfonso inserted over the Viper wire and advanced to the LAD. Coronary orbital athrectomy performed in the LAD. Results checked. Coronary orbital athrectomy performed in the LAD. Results checked. Coronary orbital athrectomy performed in the LAD. CSI alfonso removed OTW. Results checked. Teleport support catheter inserted and advacned OTW to the LAD. Viper wire out. 300cm Runthrough wire inserted through the catheter and advanced to the LAD. Teleport catheter out OTW. ACT drawn. Results 324 seconds. Therapeutic limits - pre-heparin administration 90-150 seconds and monitoring heparin during a vascular procedure >250 seconds. Inflation number : 1 A AB TREK 2.25X12 RX BALLOON was prepped and advanced across the Prox LAD , then inflated to 12 NING for 0:26 seconds. Inflation number: 2 The AB TREK 2.25X12 RX BALLOON was reinflated across the Prox LAD, to 14 NING for 0:30 seconds. Results checked. Inflation number: 1 The AB TREK 2.25X12 RX BALLOON was reinflated across the Dist LAD, to 8 NING for 0:19 seconds. Inflation number: 2 The AB TREK 2.25X12 RX BALLOON was reinflated across the Dist LAD, to 12 NING for 0:25 seconds. Inflation number: 3 The AB TREK 2.25X12 RX BALLOON was reinflated across the Dist LAD, to 12 NING for 0:17 seconds. Balloon out. Results checked. ACT drawn. Results 255 seconds. Therapeutic limits - pre-heparin administration 90-150 seconds and monitoring heparin during a vascular procedure >250 seconds. Inflation Number : 3 A NATHAN Newsome JOSE 3.0X30 JERI -Lot Number# _[id number] EXP: 02/02/2024 was prepped and advanced across the Prox LAD. The stent was deployed at 12 NING for 0:30 seconds. Stent balloon out over wire. wire redirected to the AV groove. wire out. Runthrough wire inserted and advanced to the distal LAD. 2.0x20mm Balloon inserted to lesion in the distal LAD. Balloon out. 2.0x20mm Balloon inserted to lesion in the distal LAD. Balloon out. Inflation number: 4 The AB TREK 2.25X12 RX BALLOON was reinflated across the Dist LAD, to 10 NING for 0:20 seconds. Inflation number: 5 The AB TREK 2.25X12 RX BALLOON was reinflated across the Dist LAD, to 10 NING for 0:11 seconds. Inflation number: 6 The AB TREK 2.25X12 RX BALLOON was reinflated across the Dist LAD, to 8 NING for 0:12 seconds. Inflation number: 7 The AB TREK 2.25X12 RX BALLOON was reinflated across the Dist LAD, to 12 NING for 0:09 seconds. Inflation number: 8 The AB TREK 2.25X12 RX BALLOON was reinflated across the Dist LAD, to 12 NING for 0:09 seconds. Balloon out. Wire out. Results checked. Guide catheter out. Impella device out. ACT drawn. Results 244 seconds. Therapeutic limits - pre-heparin administration 90-150 seconds and monitoring heparin during a vascular procedure >250 seconds. PERRLA. 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 No VTE prophylaxis required. Medication's Wasted: Lidocaine 1% = 13 mL. Medication's Wasted: Other = Fentanyl 75 mg. Medication's Wasted: Other = Versed 1.5 mg. Medication's Wasted: Nitro = 49.6 mg. Total IV fluids: 300 mL. Contrast type used: Visipaque 320 mgI/mL, 500 mL bottle. Complications: None. Post-op diagnosis: CAD. Estimated blood loss: 5mL-10mL. Responsiveness - Normal response to verbal stimuli; alert and oriented, PERRLA. Airway - Unaffected, no intervention required; spontaneous ventilation. Circulation: W/N/L, pulses unchanged. Nausea/Vomiting: No. The 7Fr Flexor sheath was exchanged for a short 7Fr sheath. A Suture was successful obtaining hemostatsis at the Right Femoral artery insertion site. Medication's Wasted: Heparin = 2000 units. Right Arterial sheath flushed and connected to tranducer and pressure bag with heparinized saline. Procedure completed. Vital chart was stopped. Patient transferred by bed to 1st floor. 4 Perclose (Kinsights) and an AngioSeal (Lot [id number]) was successful obtaining hemostatsis at the Left Femoral artery insertion site. Access Site Site: Left Femoral artery Sheath Size: 6 Fr Hemostasis Method: Perclose (Laureano) Hemostasis Success: Successful Site: Right Femoral artery Sheath Size: 6 Fr Hemostasis Method: Suture Hemostasis Success: Successful Procedure Medications Start: 8:58 AM Stop: 8:58 AM Medication: Fentanyl Amount: 25 mcg Route: I.V. Start: 9:01 AM Stop: 9:01 AM Medication: Versed Amount: 1 mg Route: I.V. Start: 9:01 AM Stop: 9:01 AM Medication: Fentanyl Amount: 50 mcg Route: I.V. Start: 9:52 AM Stop: 9:52 AM Medication: Heparin Amount: 8000 units Route: I.V. Start: 10:02 AM Stop: 10:02 AM Medication: Heparin Amount: 2000 units Route: I.V. Start: 10:02 AM Stop: 10:02 AM Medication: Fentanyl Amount: 25 mcg Route: I.V. Start: 10:03 AM Stop: 10:03 AM Medication: Versed Amount: 0.5 mg Route: I.V. Start: 10:12 AM Stop: 10:12 AM Medication: Heparin Amount: 2000 units Route: I.V. Start: 10:18 AM Stop: 10:18 AM Medication: Versed Amount: 0.5 mg Route: I.V. Start: 10:18 AM Stop: 10:18 AM Medication: Fentanyl Amount: 25 mcg Route: I.V. Start: 10:23 AM Stop: 10:23 AM Medication: Heparin Amount: 2000 units Route: I.V. Start: 10:38 AM Stop: 10:38 AM Medication: Versed Amount: 1 mg Route: I.V. Start: 10:49 AM Stop: 10:49 AM Medication: Nitrogylcerin Amount: 200 mcg Route: I.C. Start: 10:52 AM Stop: 10:52 AM Medication: Heparin Amount: 2000 units Route: I.V. Start: 10:55 AM Stop: 10:55 AM Medication: Versed Amount: 1 mg Route: I.V. Start: 11:07 AM Stop: 11:07 AM Medication: Fentanyl Amount: 25 mcg Route: I.V. Start: 11:07 AM Stop: 11:07 AM Medication: Versed Amount: 0.5 mg Route: I.V. Start: 11:11 AM Stop: 11:11 AM Medication: Nitrogylcerin Amount: 200 mcg Route: I.C. Start: 11:15 AM Stop: 11:15 AM Medication: 0.9% Saline Amount: 250 ml Route: I.V. bolus Start: 11:35 AM Stop: 11:35 AM Medication: Fentanyl Amount: 25 mcg Route: I.V. I, the attending physician, have reviewed and verified all procedure medications. Yes, all medications given per verbal order History/Risk Factors Hypertension: Yes Dyslipidemia: No Peripheral Arterial Disease (PAD): Yes Myocardial Infarction (NE): No Obesity: No Renal Disease: No Tobacco Use: Former Prior Interventions PCI: No CABG: No Valve Surgery: No Report Signatures Finalized by Rodney Galvin MD on 07/02/2021 10:38 AM
[2021-06-18] MEDS: aspirin 325 mg Tablet PO (07:46)
[2021-06-18] MEDS: FUROsemide 40 mg Tablet 80 MG PO (07:46)
[2021-06-18] MEDS: pantoprazole DR 40 mg Tablet PO (07:46)
[2021-06-18] MEDS: clopidogrel 75 mg Tablet PO (07:46)
--- NOTE | 2021-06-18 09:06 | P.HPUD_ITS ---
Surgery/Procedure H&P Update DATE OF PROCEDURE: June 18, 2021 DATE H&P PERFORMED: 06/15/21 H&P UPDATE INFORMATION: I have reviewed H&P completed within last 30 days, I have examined patient prior to procedure and No changes to prior documentation CHANGES TO PREVIOUS DOCUMENTATION: 81-year-old man who had presented with new onset congestive heart failure and EF of 25%. 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 CT surgery was consulted for possible coronary artery bypass surgery. After discussion with surgery team, patient refused undergoing surgery and was considered high risk given his age and COPD. Detailed discussion regarding risk and benefits of performing high risk PCI to the LAD. Given his multivessel coronary artery disease, severely reduced LV systolic function and need for arthrectomy, we will proceed with performing Impella supported high risk PCI of LAD with orbital arthrectomy. Risks and benefits of the procedure have been discussed with the patient and his daughter. Risks including bleeding, infection, kidney function worsening, coronary artery dissection/perforation, [place], stroke and have been discussed. They understood the risks and benefits and want to proceed with the procedure. PREOP DIAGNOSIS: New onset congestive heart failure/Severe multivessel CAD PRIMARY INDICATION FOR PROCEDURE: New onset congestive heart failure/Severe multivessel CAD PLANNED PROCEDURE: Operation Date: 06/16/21 16:30 Proposed Procedures p Cardiac Catheterization(Not Applicable) - Rodney Galvin M.D High risk PCI of LAD with arthrectomy and impella support PATIENT REASSESSED PRIOR TO SEDATION, WITH NO CHANGE NOTED: Yes PHYSICAL EXAM: alert, oriented x 3, clear to auscultation bilaterally and regular rate & rhythm AIRWAY EVAL/ANESTHESIA PLAN: ASA III, Monitored Anesthesia, Local Anesthesia, Risks, benefits & alternatives of sedation and/or procedure discussed and Patient agrees to continue as planned
--- NOTE | 2021-06-18 09:19 | PC.NURSE ---
to woven label designer
--- NOTE | 2021-06-18 12:00 | PC.NURSE ---
Back from cath lab radiological technologist Pt is still moderrately sedated post pci. Pt has 7 fr sheath on right groin attached to pressure bag. No hematoma, bleeding or swelling noted. Pt has had an angioseal and perclose on left groin w/bulky dressing.noted a swelling, small hematoma and blood oozing on the access site. Pt has had 14 Fr Impella device on this groin during the procedure. Applied pressure for 20mins. Hematoma remains the same in size. Dr. Galvin in room and notified him with the the assessment. Dr Galvin stated he has a previous lump noted on this left groin and to keep monitoring the sites. Informed Dr. Galvin to have order for Jennings catheter due to prolonged immobilization. Informed Dr. Galvin that pt had taken oral lasix this Am. informed to hold lasix and start 75 ml of IVF NS for 8hrs. Neurovascular monitored. VS/monitored.
--- NOTE | 2021-06-18 12:41 | PM.MISC ---
Miscellaneous Note Purpose of Documentation: Brief procedure note Note: Successful high risk impella supported PCI of proximal to mid LAD with JERI x 1 with orbital arthrectomy Aspirin and Plavix for atleast 1 year Guideline directed medical therapy for heart failure IV fluids at 75cc/hr for 8 hours (LVEDP was low). Impella removed at the end of procedure and access closed with perclose x 1 and angioseal x1. Please observe groin closely
[2021-06-18] MEDS: sodium chloride 0.9% 1,000 ML 75 ML IV (13:05)
[2021-06-18 14:45] LABS: Partial Thromboplastin Time > 250.0 SECONDS (23.9-36.7)
--- NOTE | 2021-06-18 15:31 | PM.PN ---
Subjective Subjective: Patient was seen and examined this morning, denies any chest pain shortness of breath. Heart rate has been maintaining ln mid to high 50s. Medications: Reviewed: Yes Medication Review Details: Generic Name Dose Route Start Last Admin Trade Name Cecilia PRN Reason Stop Dose Admin Albuterol/Ipratrop ium 3 ml 06/12/21 21:00 06/17/21 09:07 Ipratropium-Albu terol 3 Ml Neb INHALATION 3 ml Q6H.RESPIRATORY S CH Administration Aspirin 325 mg 06/16/21 09:00 06/17/21 08:57 Aspirin 325 Mg T ablet PO 325 mg DAILY YARY Administration Docusate Sodium 100 mg 06/11/21 09:00 06/17/21 08:58 Docusate Sodium 100 Mg Capsule PO 100 mg BID YARY Administration Enoxaparin Sodium 40 mg 06/11/21 02:00 06/17/21 01:21 Enoxaparin 40 Mg /0.4 Ml Syringe SUBCUT 40 mg Q24H YARY Administration Furosemide 80 mg 06/17/21 08:00 06/17/21 08:57 Furosemide 40 Mg Tablet PO 80 mg BID@,16 YARY Administration Ceftriaxone Sodium 1,000 mg/ 50 mls @ 100 mls/ hr 06/12/21 01:00 06/17/21 01:20 Sodium Chloride IV 100 mls/hr Q24H YARY Administration Protocol Insulin Human Lisp ro 0 unit 06/11/21 08:00 06/17/21 11:53 Insulin Lispro 1 00 Unit/1 Ml SUBCUT 6 unit TIDWM YARY Administration Protocol Metoprolol Succina te 12.5 mg 06/16/21 09:00 06/17/21 08:58 Metoprolol Succi fabiana Er (24 Hr) 25 Mg Tablet PO 12.5 mg DAILY YARY Administration Vitals/I&O/Wt Last Vital Signs Temp 97.7 F 06/17/21 23:30 Pulse 53 L 06/18/21 15:00 Resp 18 06/18/21 15:00 BP 160/72 06/18/21 15:00 Pulse Ox 96 06/18/21 15:00 06/18/21 06/18/21 06/18/21 06:59 14:59 22:59 Intake Total 100 / 608 Output Total 450 / 975 1200 / 1200 Balance -350 / -367 -1200 / -1200 Physical Exam Const: COMMON NORMALS: patient oriented x3 HENMT: COMMON NORMALS: normocephalic, atraumatic and external ears normal HEAD & SCALP: normocephalic and atraumatic EXTERNAL EAR: Yes external ears normal Eye: COMMON NORMALS: no scleral icterus GENERAL EYE: appearance normal, both eyes and all related structures Chest: COMMONS NORMALS: normal inspection of the chest and normal palpation of entire chest wall CHEST: Yes Symmetrical chest wall rise Resp: COMMON NORMALS: normal respiratory effort, No retractions and clear to auscultation bilaterally EFFORT & INSPECTION: Yes symmetric chest movement AUSCULTATION: clear to auscultation bilaterally OTHER: Diminished air entry predominantly at bases. Cardio: COMMON NORMALS: regular rate, regular rhythm, S1 normal heart sound present, S2 normal heart sound present, No gallops present (Cardio), No murmurs present (Cardio), No rub (Cardio) and Peripheral pulses 2+ throughout RATE: regular rate RHYTHM: regular rhythm HEART SOUNDS: S1 normal heart sound present and S2 normal heart sound present PERIPHERAL PULSES: Peripheral pulses 2+ throughout GI: COMMON NORMALS: Normal to inspection, nondistended, normoactive bowel sounds present, Soft to palpation, non-tender, No hepatosplenomegaly present and no masses AUSCULTATION: Yes normoactive bowel sounds PALPATION: Yes Soft to palpation and Yes No hepatosplenomegaly present RECTAL EXAM: Yes deferred Extremity: COMMON NORMALS: no clubbing, cyanosis or edema and no pedal edema Neuro: COMMON NORMALS: patient oriented x3 Urinary Catheter Management: Jennings Latex Free: Cath Placed During This Visit: yes Urinary Catheter Date of Insertion: 06/18/21 Urinary Catheter Time of Insertion: 12:45 Data : 06/18/21 02:40 06/18/21 02:40 A&P Assessment and plan (1) CHF (congestive heart failure): Status: Acute (2) Community acquired pneumonia: Status: Acute Qualifiers: Laterality: right Lung location: upper lobe of lung Qualified Code(s): J18.9 - Pneumonia, unspecified organism (3) Pleural effusion: Status: Acute Plan # New onset 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 Denies any known prior history of coronary artery disease 2D echo: EF 45%, possible lateral wall akinesis Repeat 2D echo with contrast:Mildly dilated left ventricular cavity size. Severely decreased left ventricular systolic function. Left ventricular ?ejection fraction is estimated at 25 % visually and 28% by modified biplane method.? There is moderate diffuse hypokinesis with severe hypokinesis of mid anterolateral, apical lateral, mid anteroseptal, apical septal, and apical noriega. Strict intake output charting Fluid restriction 1500 cc K>4, MG >2 Continue telemetry monitoring Continue Lasix 80 mg p.o. twice daily Continue metoprolol succinate 12.5 mg p.o. daily Continue Lisinopril Candiddate For Life vest Appreciate cardiology inputs: CAD : S/P CAG : nearly occluded circumflex, 99% stenosis of proximal to mid LAD and subtotal occlusion of first diagonal. mild to moderate disease in proximal to mid RCA with severe disease in distal RCA. Patient was offered CABG, but he opted for PCI. S/p: impella assisted PCI of Px to mid LAD ( JERI x 1 ) with orbital arthrectomy Continue aspirin Plavix, statin. #Community-acquired pneumonia -Consolidation in the inferior left upper lobe and superior left lower lobe on CT chest -Continue Rocephin for 5 days, completed azithromycin x 3 days - sputum cx and gram stain pending Negtaive urine legionella and bacterial antigens Continue DuoNebs #Moderate to large bilateral pleural effusions: Likely secondary to decompensated heart failure: Chest x-ray has shown improvement, clinically patient has some significant improvement in shortness of breath. Continue diuresis for now. Continue to monitor chest x-ray. # NSTEMI type II: Likely secondary to decompensated heart failure. -Denies any chest pain -Baseline troponin was 36, 120-minute 35.54, 6-hour 35.5 -EKG shows sinus rhythm, with first-degree AV block, left axis deviation, right bundle branch block # Type 2 diabetes mellitus, low-dose sliding scale #CODE STATUS full code #DVT prophylaxis on Lovenox Attestations Medical Necessity Statement*: Patient is?in hospital for management of coronary artery disease. 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
[2021-06-18 17:49] LABS: Partial Thromboplastin Time 51.4 SECONDS (23.9-36.7)
[2021-06-18] MEDS: lisinopril 10 mg Tablet PO (17:53)
[2021-06-18 18:07] LABS: Glucose Point of Care 180 mg/dL (70-110)
--- NOTE | 2021-06-18 19:26 | PC.NURSE ---
Around 1850: Removed shealth to patients right groin. Held pressure 20 min. Dressed site with 4x4 and transparent film. No drainage or hematoma noted. Vitals stable. Will continue to monitor.
[2021-06-18] MEDS: docusate sodium 100 mg Capsule PO (19:31)
[2021-06-18] MEDS: atorvastatin 40 mg Tablet PO (19:32)
[2021-06-18 21:20] LABS: Glucose Point of Care 212 mg/dL (70-110)
[2021-06-19] VITALS (16 sets, daily range): BP systolic 101–108; BP diastolic 42–70; PULSE 59–73; RESP 14–22; TEMP 36.7–37.1; O2SAT 92–96
--- NOTE | 2021-06-19 00:10 | PC.NURSE ---
Patient post-angriogram and post arterial sheath removal. Lovenox non-admined per Dr. Ramos.
[2021-06-19] MEDS: cefTRIAXone 1,000 MG in sodium chloride 0.9% (plus) 50 ML 100 MG IV (00:28)
--- NOTE | 2021-06-19 01:05 | PC.NURSE ---
Patient assisted up to chair with nurse. Right and left groin sites WNL. VSS. Will continue to monitor.
--- NOTE | 2021-06-19 01:45 | PC.NURSE ---
Patient had bowel movement. Color of bowel was not dark and tarry, but was not bright red. It appeared to be dark red, possibly blood. Dr. Ramos notified and stool sample ordered and sent to lab.
[2021-06-19] MEDS: ipratropium-albuterol 3 mL Neb INHALATION ×4 (02:15→22:44)
[2021-06-19 02:52] LABS: Basophils # 0.1 10^3/uL (0.0-0.1); Basophils % 0.5 %; Eosinophils # 0.1 10^3/uL (0.0-0.8); Eosinophils % 0.5 %; Hematocrit 36.8 % (42.0-52.0); Hemoglobin 11.7 g/dL (11.7-16.6); Lymphocytes # 1.7 10^3/uL (0.8-4.8); Lymphocytes % 8.8 %; Mean Corpuscular HGB Conc 31.8 g/dL (30.0-36.0); Mean Corpuscular Hemoglobin 27.5 pg (28.0-34.0); Mean Corpuscular Volume 86.4 fl (80-94); Mean Platelet Volume 10.4 fL (7.4-10.4); Monocytes # 1.7 10^3/uL (0.2-0.9); Monocytes % 8.9 %; Neutrophils # 15.78 10^3/uL (1.8-7.7); Neutrophils % 80.8 %; Nucleated Red Blood Cells % 0 %; Platelet Count 259 10^3/cmm (130-400); Red Blood Count 4.26 10^6/uL (4.1-5.3); Red Cell Distribution Width 13.3 % (12.1-15.1); White Blood Count 19.5 10^3/uL (4.0-10.0)
[2021-06-19 03:22] LABS: Anion Gap 17.4 (5-19); Blood Urea Nitrogen 48 mg/dL (8-23); Calcium 9.2 mg/dL (8.5-10.5); Carbon Dioxide 26 mmol/L (22-29); Chloride 97 mmol/L (98-107); Glucose 196 mg/dL (65-115); Osmolality Calculated 300 mOsm/kg (285-295); Potassium 4.4 mmol/L (3.5-5.1); Sodium 136 mmol/L (136-145)
[2021-06-19 06:33] LABS: Glucose Point of Care 191 mg/dL (70-110)
[2021-06-19] MEDS: lisinopril 10 mg Tablet PO (07:38)
[2021-06-19] MEDS: insulin lispro 100 unit/1 mL SUBCUT ×3 (07:38→17:44)
[2021-06-19] MEDS: clopidogrel 75 mg Tablet PO (07:38)
[2021-06-19] MEDS: docusate sodium 100 mg Capsule PO ×2 (07:38→17:44)
--- NOTE | 2021-06-19 08:20 | PC.SOCIAL ---
IMM Update pg 2 of IMM updated and reviewed w/ patient. Copy provided and copy in chart updated.
[2021-06-19] MEDS: pantoprazole 40 mg SDV IVP ×2 (08:36→20:20)
[2021-06-19] MEDS: aspirin 81 mg Chew Tablet PO (09:17)
--- NOTE | 2021-06-19 10:43 | P.PN_ITS ---
Subjective Subjective: Patient underwent high risk PCI Impella supported with proximal to mid LAD drug-eluting stent placement after orbital atherectomy yesterday Patient denies having any chest pain shortness of breath or leg swelling Medications: Reviewed: Yes Vitals/I&O/Wt Last Vital Signs Temp 98.1 F 06/19/21 05:05 Pulse 59 L 06/19/21 08:48 Resp 16 06/19/21 08:48 BP 108/70 06/19/21 07:00 Pulse Ox 95 06/19/21 08:48 06/18/21 06/19/21 06/19/21 22:59 06:59 14:59 Intake Total 850 / 850 50 / 900 720 / 720 Output Total 800 / 2000 200 / 2200 Balance 50 / -1150 -150 / -1300 720 / 720 Physical Exam Narrative: GENERAL: Averagely built and averagely nourished in no acute distress HEENT:? No pallor or icterus. NECK: No JVD,? No carotid bruit. CARDIOVASCULAR SYSTEM: S1-S2 regular.? No murmur or gallops. RESPIRATORY SYSTEM: Chest clear to auscultation.? No wheezes or rhonchi heard. No use of accessory muscles. ABDOMEN: Soft, nontender and nondistended.? Normal bowel sounds present.? EXTREMITIES: No cyanosis or edema].? No signs of chronic venous insufficiency. 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 No focal neurological deficits.? Urinary Catheter Management: Jennings Latex Free: Cath Placed During This Visit: yes Reason for Continuing Indwelling Catheter: Accurate Measurement of Urinary Output in Critically Ill Patients Urinary Catheter Date of Insertion: 06/18/21 Urinary Catheter Time of Insertion: 12:45 Data : 06/19/21 02:20 06/19/21 02:20 Micro: Microbiology 06/19/21 01:30 Occult Blood (FIT) - Final Stool - Stool Aspirate A&P Assessment and plan (1) CAD (coronary artery disease), [place] coronary artery: S/p drug-eluting stent placement to proximal to mid LAD -Continue aspirin, Plavix and statin Status: Acute (2) CHF (congestive heart failure): Newly diagnosed cardiomyopathy with regional wall motion abnormality. -EKG with bifascicular block -Hold off Lasix metoprolol and TERRY inhibitor Status: Acute (3) Hypertension: Status: Acute Plan CAROLE : 500 cc of fluid bolus, follow-up on BMP in morning Type 2 diabetes mellitus Pleural effusion: resolved Bifascicular block COPD Thank you for allowing me to participate in patient's care. Please feel free to call with questions or concerns. 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
[2021-06-19 11:01] LABS: Glucose Point of Care 251 mg/dL (70-110)
[2021-06-19] MEDS: sodium chloride 0.9% 500 ML 75 ML IV (11:19)
--- NOTE | 2021-06-19 12:00 | PC.NURSE ---
Physician orders to give 500cc NS at 75ml/hr.
--- NOTE | 2021-06-19 12:27 | P.PN_ITS ---
Subjective Subjective: Patient was seen and examined this morning, denies any chest pain , shortness of breath. Last he had blood tinged BM, currently his H&H is stable. FOBT is positive. Serum creatinine has worsened today: to 1.7, Likely secondary to recent contrast used. Metoprolol tartrate has also been discontinued due to soft heart rate. Medications: Reviewed: Yes Medication Review Details: Generic Name Dose Route Start Last Admin Trade Name Cecilia PRN Reason Stop Dose Admin Albuterol/Ipratrop ium 3 ml 06/12/21 21:00 06/17/21 09:07 Ipratropium-Albu terol 3 Ml Neb INHALATION 3 ml Q6H.RESPIRATORY S CH Administration Aspirin 325 mg 06/16/21 09:00 06/17/21 08:57 Aspirin 325 Mg T ablet PO 325 mg DAILY YARY Administration Docusate Sodium 100 mg 06/11/21 09:00 06/17/21 08:58 Docusate Sodium 100 Mg Capsule PO 100 mg BID YARY Administration Enoxaparin Sodium 40 mg 06/11/21 02:00 06/17/21 01:21 Enoxaparin 40 Mg /0.4 Ml Syringe SUBCUT 40 mg Q24H YARY Administration Furosemide 80 mg 06/17/21 08:00 06/17/21 08:57 Furosemide 40 Mg Tablet PO 80 mg BID@,16 YARY Administration Ceftriaxone Sodium 1,000 mg/ 50 mls @ 100 mls/ hr 06/12/21 01:00 06/17/21 01:20 Sodium Chloride IV 100 mls/hr Q24H YARY Administration Protocol Insulin Human Lisp ro 0 unit 06/11/21 08:00 06/17/21 11:53 Insulin Lispro 1 00 Unit/1 Ml SUBCUT 6 unit TIDWM YARY Administration Protocol Metoprolol Succina te 12.5 mg 06/16/21 09:00 06/17/21 08:58 Metoprolol Succi fabiana Er (24 Hr) 25 Mg Tablet PO 12.5 mg DAILY YARY Administration Vitals/I&O/Wt Last Vital Signs Temp 98.1 F 06/19/21 05:05 Pulse 66 06/19/21 11:30 Resp 18 06/19/21 11:30 BP 105/42 06/19/21 11:30 Pulse Ox 94 06/19/21 11:30 06/18/21 06/19/21 06/19/21 22:59 06:59 14:59 Intake Total 850 / 850 50 / 900 720 / 720 Output Total 800 / 2000 200 / 2200 Balance 50 / -1150 -150 / -1300 720 / 720 Physical Exam Const: COMMON NORMALS: patient oriented x3 HENMT: COMMON NORMALS: normocephalic and atraumatic HEAD & SCALP: normocephalic and atraumatic Eye: GENERAL EYE: appearance normal, both eyes and all related structures Chest: COMMONS NORMALS: normal inspection of the chest and normal palpation of entire chest wall CHEST: Yes Symmetrical chest wall rise Resp: COMMON NORMALS: normal respiratory effort, No retractions and clear to auscultation bilaterally EFFORT & INSPECTION: Yes symmetric chest movement AUSCULTATION: clear to auscultation bilaterally OTHER: Diminished air entry predominantly at bases. Cardio: COMMON NORMALS: regular rate, regular rhythm, S1 normal heart sound pr esent, S2 normal heart sound present, No gallops present (Cardio), No murmurs present (Cardio), No rub (Cardio) and Peripheral pulses 2+ throughout RATE: regular rate RHYTHM: regular rhythm HEART SOUNDS: S1 normal heart sound present and S2 normal heart sound present PERIPHERAL PULSES: Peripheral pulses 2+ throughout GI: COMMON NORMALS: Normal to inspection, nondistended, normoactive bowel sounds present, Soft to palpation, non-tender, No hepatosplenomegaly present and no masses AUSCULTATION: Yes normoactive bowel sounds PALPATION: Yes Soft to palpation and Yes No hepatosplenomegaly present RECTAL EXAM: Yes deferred Extremity: COMMON NORMALS: no clubbing, cyanosis or edema and no pedal edema Neuro: COMMON NORMALS: patient oriented x3 Urinary Catheter Management: Jennings Latex Free: Cath Placed During This Visit: yes Reason for Continuing Indwelling Catheter: Accurate Measurement of Urinary Output in Critically Ill Patients Urinary Catheter Date of Insertion: 06/18/21 Urinary Catheter Time of Insertion: 12:45 Data : 06/19/21 02:20 06/19/21 02:20 Micro: Microbiology 06/19/21 01:30 Occult Blood (FIT) - Final Stool - Stool Aspirate A&P Assessment and plan (1) CHF (congestive heart failure): Status: Acute (2) Community acquired pneumonia: Status: Acute Qualifiers: Laterality: right Lung location: upper lobe of lung Qualified Code(s): J18.9 - Pneumonia, unspecified organism (3) Pleural effusion: Status: Acute Plan # New onset 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 Denies any known prior history of coronary artery disease 2D echo: EF 45%, possible lateral wall akinesis Repeat 2D echo with contrast:Mildly dilated left ventricular cavity size. Severely decreased left ventricular systolic function. Left ventricular ?ejection fraction is estimated at 25 % visually and 28% by modified biplane method.? There is moderate diffuse hypokinesis with severe hypokinesis of mid anterolateral, apical lateral, mid anteroseptal, apical septal, and apical noriega. Strict intake output charting Fluid restriction 1500 cc K>4, MG >2 Continue telemetry monitoring Continue Lasix 80 mg p.o. twice daily Continue metoprolol succinate 12.5 mg p.o. daily Continue Lisinopril Candiddate For Life vest Appreciate cardiology inputs: CAD : S/P CAG : nearly occluded circumflex, 99% stenosis of proximal to mid LAD and subtotal occlusion of first diagonal. mild to moderate disease in proximal to mid RCA with severe disease in distal RCA. Patient was offered CABG, but he opted for PCI. S/p: impella assisted PCI of Px to mid LAD ( JERI x 1 ) with orbital arthrectomy Continue aspirin Plavix, statin. #CAROLE: Likely secondary to recent contrast use. Baseline serum creatinine is: 1-1.2 Current serum creatinine is 1.7 Lasix and lisinopril has been kept on hold Continue to monitor BMP Avoid Nephrotoxic's Gentle IV hydration with Ns 500 cc only Intake output charting #Community-acquired pneumonia -Consolidation in the inferior left upper lobe and superior left lower lobe on CT chest -Completed Rocephin for 5 days, completed azithromycin x 3 days - sputum cx and gram stain pending Negtaive urine legionella and bacterial antigens Continue DuoNebs #Moderate to large bilateral pleural effusions: Likely secondary to decompensated heart failure: Chest x-ray has shown improvement, clinically patient has significant improvement in shortness of breath. Continue diuresis for now. Continue to monitor chest x-ray. # NSTEMI type II: Likely secondary to decompensated heart failure. -Denies any chest pain -Baseline troponin was 36, 120-minute 35.54, 6-hour 35.5 -EKG shows sinus rhythm, with first-degree AV block, left axis deviation, right bundle branch block # Type 2 diabetes mellitus, low-dose sliding scale #CODE STATUS full code #DVT prophylaxis on Lovenox Attestations Medical Necessity Statement*: Patient is to be in hospital for management of NSTEMI coronary artery disease , CAROLE , need for medical optimization. 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
[2021-06-19 15:27] LABS: Glucose Point of Care 201 mg/dL (70-110)
[2021-06-19] MEDS: atorvastatin 40 mg Tablet PO (20:20)
[2021-06-19 22:41] LABS: Glucose Point of Care 184 mg/dL (70-110)
[2021-06-20] VITALS (19 sets, daily range): BP systolic 90–111; BP diastolic 50–75; PULSE 62–76; RESP 16–20; TEMP 36.6–36.8; O2SAT 93–98
[2021-06-20] MEDS: ipratropium-albuterol 3 mL Neb INHALATION ×4 (03:00→20:34)
[2021-06-20 03:32] LABS: Basophils # 0.1 10^3/uL (0.0-0.1); Basophils % 0.5 %; Eosinophils # 0.2 10^3/uL (0.0-0.8); Eosinophils % 1.6 %; Hematocrit 33.5 % (42.0-52.0); Hemoglobin 10.6 g/dL (11.7-16.6); Lymphocytes % 13.1 %; Mean Corpuscular HGB Conc 31.6 g/dL (30.0-36.0); Mean Corpuscular Hemoglobin 26.8 pg (28.0-34.0); Mean Corpuscular Volume 84.8 fl (80-94); Mean Platelet Volume 10.8 fL (7.4-10.4); Monocytes # 1.6 10^3/uL (0.2-0.9); Monocytes % 10.2 %; Neutrophils # 11.32 10^3/uL (1.8-7.7); Neutrophils % 74.1 %; Nucleated Red Blood Cells % 0 %; Platelet Count 217 10^3/cmm (130-400); Red Blood Count 3.95 10^6/uL (4.1-5.3); Red Cell Distribution Width 13.3 % (12.1-15.1); White Blood Count 15.3 10^3/uL (4.0-10.0)
[2021-06-20 03:54] LABS: Anion Gap 15.4 (5-19); Blood Urea Nitrogen 59 mg/dL (8-23); Calcium 8.8 mg/dL (8.5-10.5); Carbon Dioxide 28 mmol/L (22-29); Chloride 94 mmol/L (98-107); Glucose 195 mg/dL (65-115); Magnesium 2.4 mg/dL (1.7-2.3); Osmolality Calculated 298 mOsm/kg (285-295); Potassium 4.4 mmol/L (3.5-5.1); Sodium 133 mmol/L (136-145)
--- NOTE | 2021-06-20 06:23 | XRR_ITS ---
PROCEDURE INFORMATION: Exam: XR Chest Exam date and time: 06/20/2021 6:23 AM Age: 81 years old Clinical indication: Shortness of breath; Prior surgery; Additional info: SOB TECHNIQUE: Imaging protocol: XR of the chest. Views: 1 view. COMPARISON: CR XR chest 1V portable [id number] 06/18/2021 4:44 AM FINDINGS: Tubes, catheters and devices: Support devices overlying the chest and obscuring underlying structures. Lungs: Low lung volumes. Pulmonary vascular congestion with patchy bibasilar opacities, left greater than right, similar to prior. Pleural spaces: Small pleural effusions cannot be excluded. No visible pneumothorax. Heart/Mediastinum: Cardiac silhouette upper normal. Bones/joints: Unremarkable. XR/XR chest 1V portable [id number] IMPRESSION: No significant interval change. Pulmonary vascular congestion with suspected edema. Superimposed left lower lobe pneumonia not excluded.
--- NOTE | 2021-06-20 06:43 | PM.PN ---
Subjective Subjective: No new complains Medications: Reviewed: Yes Vitals/I&O/Wt Last Vital Signs Temp 98.2 F 06/20/21 04:08 Pulse 67 06/20/21 06:00 Resp 18 06/20/21 04:08 BP 102/58 06/20/21 04:08 Pulse Ox 93 06/20/21 04:08 06/19/21 06/19/21 06/20/21 14:59 22:59 06:59 Intake Total 1694 / 1694 560 / 2254 120 / 2374 Output Total 250 / 250 Balance 1694 / 1694 / 2003 120 / 2124 Physical Exam Narrative: GENERAL: Averagely built and averagely nourished in no acute distress HEENT:? No pallor or icterus. NECK: No JVD,? No carotid bruit. CARDIOVASCULAR SYSTEM: S1-S2 regular.? No murmur or gallops. RESPIRATORY SYSTEM: Chest clear to auscultation.? No wheezes or rhonchi heard. No use of accessory muscles. ABDOMEN: Soft, nontender and nondistended.? Normal bowel sounds present.? EXTREMITIES: No cyanosis or edema].? No signs of chronic venous insufficiency. 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 No focal neurological deficits.? Urinary Catheter Management: Jennings Latex Free: Cath Placed During This Visit: yes Reason for Continuing Indwelling Catheter: Other Urinary Catheter Date of Insertion: 06/18/21 Urinary Catheter Time of Insertion: 12:45 Data : 06/20/21 02:47 06/20/21 02:47 Micro: Microbiology 06/19/21 01:30 Occult Blood (FIT) - Final Stool - Stool Aspirate A&P Assessment and plan (1) CAD (coronary artery disease), [place] coronary artery: S/p drug-eluting stent placement to proximal to mid LAD -Continue aspirin, Plavix and statin Status: Acute (2) CHF (congestive heart failure): Newly diagnosed cardiomyopathy with regional wall motion abnormality. -EKG with bifascicular block -Hold off Lasix metoprolol and TERRY inhibitor -approved for life vest Status: Acute (3) Hypertension: Status: Acute Plan CAROLE :likely ИРИНА, will give lasix 40 mg IV x 1 today, f/u on BMP Type 2 diabetes mellitus Pleural effusion: resolved Bifascicular block COPD Thank you for allowing me to participate in patient's care. Please feel free to call with questions or concerns. 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
[2021-06-20 07:14] LABS: Glucose Point of Care 137 mg/dL (70-110)
--- NOTE | 2021-06-20 07:59 | P.PN_ITS ---
Subjective Subjective: Patient was seen and examined this morning, denies any chest pain , H&H is stable. Serum creatinine has treneded up to 2 , x rays chest is suggestive of pulmonary vascular congestion.Poor urine output as compared to prior days. Medications: Reviewed: Yes Medication Review Details: Generic Name Dose Route Start Last Admin Trade Name Alexq PRN Reason Stop Dose Admin Albuterol/Ipratrop ium 3 ml 06/12/21 21:00 06/17/21 09:07 Ipratropium-Albu terol 3 Ml Neb INHALATION 3 ml Q6H.RESPIRATORY S CH Administration Aspirin 325 mg 06/16/21 09:00 06/17/21 08:57 Aspirin 325 Mg T ablet PO 325 mg DAILY YARY Administration Docusate Sodium 100 mg 06/11/21 09:00 06/17/21 08:58 Docusate Sodium 100 Mg Capsule PO 100 mg BID YARY Administration Enoxaparin Sodium 40 mg 06/11/21 02:00 06/17/21 01:21 Enoxaparin 40 Mg /0.4 Ml Syringe SUBCUT 40 mg Q24H YARY Administration Furosemide 80 mg 06/17/21 08:00 06/17/21 08:57 Furosemide 40 Mg Tablet PO 80 mg BID@08,16 YARY Administration Ceftriaxone Sodium 1,000 mg/ 50 mls @ 100 mls/ hr 06/12/21 01:00 06/17/21 01:20 Sodium Chloride IV 100 mls/hr Q24H YARY Administration Protocol Insulin Human Lisp ro 0 unit 06/11/21 08:00 06/17/21 11:53 Insulin Lispro 1 00 Unit/1 Ml SUBCUT 6 unit TIDWM YARY Administration Protocol Metoprolol Succina te 12.5 mg 06/16/21 09:00 06/17/21 08:58 Metoprolol Succi fabiana Er (24 Hr) 25 Mg Tablet PO 12.5 mg DAILY YARY Administration Vitals/I&O/Wt Last Vital Signs Temp 98.2 F 06/20/21 04:08 Pulse 67 06/20/21 06:00 Resp 18 06/20/21 04:08 BP 102/58 06/20/21 04:08 Pulse Ox 93 06/20/21 04:08 06/19/21 06/20/21 06/20/21 22:59 06:59 14:59 Intake Total 560 / 2254 120 / 2374 Output Total 250 / 250 Balance 310 / 2003 120 / 2124 Physical Exam Const: COMMON NORMALS: patient oriented x3 HENMT: COMMON NORMALS: normocephalic and atraumatic HEAD & SCALP: normocephalic and atraumatic Eye: COMMON NORMALS: no scleral icterus GENERAL EYE: appearance normal, both eyes and all related structures Chest: COMMONS NORMALS: normal inspection of the chest and normal palpation of entire chest wall CHEST: Yes Symmetrical chest wall rise Resp: COMMON NORMALS: normal respiratory effort, No retractions and clear to auscultation bilaterally EFFORT & INSPECTION: Yes symmetric chest movement AUSCULTATION: clear to auscultation bilaterally OTHER: Diminished air entry predominantly at bases. Cardio: COMMON NORMALS: regular rate, regular rhythm, S1 normal heart sound present, S2 normal heart sound present, No gallops present (Cardio), No murmurs present (Cardio), No rub (Cardio) and Peripheral pulses 2+ throughout RATE: regular rate RHYTHM: regular rhythm HEART SOUNDS: S1 normal heart sound present and S2 normal heart sound present PERIPHERAL PULSES: Peripheral pulses 2+ throughout GI: COMMON NORMALS: Normal to inspection, nondistended, normoactive bowel sounds present, Soft to palpation, non-tender, No hepatosplenomegaly present and no masses AUSCULTATION: Yes normoactive bowel sounds PALPATION: Yes Soft t o palpation and Yes No hepatosplenomegaly present RECTAL EXAM: Yes deferred Extremity: COMMON NORMALS: no clubbing, cyanosis or edema and no pedal edema Neuro: COMMON NORMALS: patient oriented x3 Urinary Catheter Management: Jennings Latex Free: Cath Placed During This Visit: yes Reason for Continuing Indwelling Catheter: Other Urinary Catheter Date of Insertion: 06/18/21 Urinary Catheter Time of Insertion: 12:45 Data : 06/20/21 02:47 06/20/21 02:47 Micro: Microbiology 06/19/21 01:30 Occult Blood (FIT) - Final Stool - Stool Aspirate A&P Assessment and plan (1) CHF (congestive heart failure): Status: Acute (2) Community acquired pneumonia: Status: Acute Qualifiers: Laterality: right Lung location: upper lobe of lung Qualified Code(s): J18.9 - Pneumonia, unspecified organism (3) Pleural effusion: Status: Acute Plan # New onset 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 Denies any known prior history of coronary artery disease 2D echo: EF 45%, possible lateral wall akinesis Repeat 2D echo with contrast:Mildly dilated left ventricular cavity size. Severely decreased left ventricular systolic function. Left ventricular ?ejection fraction is estimated at 25 % visually and 28% by modified biplane method.? There is moderate diffuse hypokinesis with severe hypokinesis of mid anterolateral, apical lateral, mid anteroseptal, apical septal, and apical noriega. Strict intake output charting Fluid restriction 1500 cc K>4, MG >2 Continue telemetry monitoring Continue Lasix 80 mg p.o. twice daily Continue metoprolol succinate 12.5 mg p.o. daily Continue Lisinopril Candiddate For Life vest Appreciate cardiology inputs: CAD : S/P CAG : nearly occluded circumflex, 99% stenosis of proximal to mid LAD and subtotal occlusion of first diagonal. mild to moderate disease in proximal to mid RCA with severe disease in distal RCA. Patient was offered CABG, but he opted for PCI. S/p: impella assisted PCI of Px to mid LAD ( JERI x 1 ) with orbital arthrectomy Continue aspirin Plavix, statin. #CAROLE: Likely secondary to recent contrast use.( ИРИНА ) Baseline serum creatinine is: 1-1.2 Current serum creatinine is 2 Lasix 40 MG I.V * 1 Dose today lisinopril has been kept on hold Continue to monitor BMP Avoid Nephrotoxic's s/p Gentle IV hydration with Ns 500 cc only Intake output charting #Community-acquired pneumonia -Consolidation in the inferior left upper lobe and superior left lower lobe on CT chest -Completed Rocephin for 5 days, completed azithromycin x 3 days - sputum cx and gram stain pending Negtaive urine legionella and bacterial antigens Continue DuoNebs #Moderate to large bilateral pleural effusions: Likely secondary to decompensated heart failure: Chest x-ray has shown improvement, clinically patient has significant improvement in shortness of breath. Continue diuresis for now. Continue to monitor chest x-ray. # NSTEMI type II: Likely secondary to decompensated heart failure. -Denies any chest pain -Baseline troponin was 36, 120-minute 35.54, 6-hour 35.5 -EKG shows sinus rhythm, with first-degree AV block, left axis deviation, right bundle branch block # Type 2 diabetes mellitus, low-dose sliding scale #CODE STATUS full code #DVT prophylaxis on Lovenox Attestations Medical Necessity Statement*: Patient needs to be in hospital for management of CAROLE, need for monitoring of kidney function, status post cardiac cath. Coding Level of Care Code Acute Wastewater Treatment Operator for [facility] Fwd Exam Comprehensive Diagnoses CHF (congestive heart failure) I50.9 Community acquired pneumonia J18.9 Laterality: right Lung location: upper lobe of lung Pleural effusion J90
[2021-06-20] MEDS: pantoprazole 40 mg SDV IVP (08:40)
[2021-06-20] MEDS: clopidogrel 75 mg Tablet PO (08:40)
[2021-06-20] MEDS: docusate sodium 100 mg Capsule PO (08:40)
[2021-06-20] MEDS: aspirin 81 mg Chew Tablet PO (08:40)
[2021-06-20 11:17] LABS: Glucose Point of Care 309 mg/dL (70-110)
[2021-06-20] MEDS: FUROsemide 10 mg/mL SDV 4mL 40 MG IVP (11:21)
[2021-06-20] MEDS: insulin lispro 100 unit/1 mL SUBCUT ×3 (11:22→20:11)
[2021-06-20 14:20] LABS: Creatinine Urine, Random 147 mg/dL (39-259)
[2021-06-20 14:21] LABS: Urine Random Sodium 38 mmol/L
[2021-06-20] MEDS: atorvastatin 40 mg Tablet PO (19:13)
[2021-06-20 19:40] LABS: Anion Gap 15.5 (5-19); Blood Urea Nitrogen 69 mg/dL (8-23); Calcium 8.5 mg/dL (8.5-10.5); Carbon Dioxide 24 mmol/L (22-29); Chloride 97 mmol/L (98-107); Glucose 230 mg/dL (65-115); Osmolality Calculated 301 mOsm/kg (285-295); Potassium 4.5 mmol/L (3.5-5.1); Sodium 132 mmol/L (136-145)
[2021-06-20 19:57] LABS: Glucose Point of Care 249 mg/dL (70-110)
[2021-06-20 19:57] LABS: Glucose Point of Care 182 mg/dL (70-110)
[2021-06-21] VITALS (18 sets, daily range): BP systolic 102–157; BP diastolic 38–73; PULSE 60–68; RESP 16–27; TEMP 36.4–37.1; O2SAT 92–99
--- NOTE | 2021-06-21 01:27 | PC.NURSE ---
Patient currently awake. Patient states I slept all day yesterday so now I'm wide awake. Patient offered bed bath. Patient states I cleaned myself up a little bit yesterday with those bath wipes. I might do it again in the morning.
[2021-06-21] MEDS: ipratropium-albuterol 3 mL Neb INHALATION ×4 (02:20→20:45)
[2021-06-21 03:27] LABS: Basophils # 0.1 10^3/uL (0.0-0.1); Basophils % 0.4 %; Eosinophils # 0.3 10^3/uL (0.0-0.8); Eosinophils % 2.3 %; Hematocrit 30.9 % (42.0-52.0); Hemoglobin 9.8 g/dL (11.7-16.6); Lymphocytes # 1.5 10^3/uL (0.8-4.8); Lymphocytes % 13.3 %; Mean Corpuscular HGB Conc 31.7 g/dL (30.0-36.0); Mean Corpuscular Hemoglobin 27.4 pg (28.0-34.0); Mean Corpuscular Volume 86.3 fl (80-94); Mean Platelet Volume 10.5 fL (7.4-10.4); Monocytes # 1.1 10^3/uL (0.2-0.9); Monocytes % 9.6 %; Neutrophils # 8.56 10^3/uL (1.8-7.7); Nucleated Red Blood Cells % 0 %; Platelet Count 183 10^3/cmm (130-400); Red Blood Count 3.58 10^6/uL (4.1-5.3); Red Cell Distribution Width 13.4 % (12.1-15.1); White Blood Count 11.6 10^3/uL (4.0-10.0)
[2021-06-21 03:53] LABS: Anion Gap 15.4 (5-19); Blood Urea Nitrogen 72 mg/dL (8-23); Calcium 8.9 mg/dL (8.5-10.5); Carbon Dioxide 26 mmol/L (22-29); Chloride 101 mmol/L (98-107); Glucose 160 mg/dL (65-115); Osmolality Calculated 311 mOsm/kg (285-295); Potassium 4.4 mmol/L (3.5-5.1); Sodium 138 mmol/L (136-145)
[2021-06-21 06:26] LABS: Glucose Point of Care 185 mg/dL (70-110)
[2021-06-21] MEDS: insulin lispro 100 unit/1 mL SUBCUT ×4 (07:33→20:52)
[2021-06-21] MEDS: docusate sodium 100 mg Capsule PO ×2 (08:40→17:27)
[2021-06-21] MEDS: pantoprazole 40 mg SDV IVP (08:40)
[2021-06-21] MEDS: clopidogrel 75 mg Tablet PO (08:40)
[2021-06-21] MEDS: aspirin 81 mg Chew Tablet PO (08:40)
--- NOTE | 2021-06-21 10:46 | P.PN_ITS ---
Subjective Subjective: Patient was seen and examined this morning, denies any chest pain , denies any shortness of breath, good urine output in the last 24 hours, Serum creatinine has treneded up to 2.1 , BUN at 72. No signs of uremia. H&H is stable. Medications: Reviewed: Yes Medication Review Details: Generic Name Dose Route Start Last Admin Trade Name Cecilia PRN Reason Stop Dose Admin Albuterol/Ipratrop ium 3 ml 06/12/21 21:00 06/17/21 09:07 Ipratropium-Albu terol 3 Ml Neb INHALATION 3 ml Q6H.RESPIRATORY S CH Administration Aspirin 325 mg 06/16/21 09:00 06/17/21 08:57 Aspirin 325 Mg T ablet PO 325 mg DAILY YARY Administration Docusate Sodium 100 mg 06/11/21 09:00 06/17/21 08:58 Docusate Sodium 100 Mg Capsule PO 100 mg BID YARY Administration Enoxaparin Sodium 40 mg 06/11/21 02:00 06/17/21 01:21 Enoxaparin 40 Mg /0.4 Ml Syringe SUBCUT 40 mg Q24H YARY Administration Furosemide 80 mg 06/17/21 08:00 06/17/21 08:57 Furosemide 40 Mg Tablet PO 80 mg BID@,16 YARY Administration Ceftriaxone Sodium 1,000 mg/ 50 mls @ 100 mls/ hr 06/12/21 01:00 06/17/21 01:20 Sodium Chloride IV 100 mls/hr Q24H YARY Administration Protocol Insulin Human Lisp ro 0 unit 06/11/21 08:00 06/17/21 11:53 Insulin Lispro 1 00 Unit/1 Ml SUBCUT 6 unit TIDWM YARY Administration Protocol Metoprolol Succina te 12.5 mg 06/16/21 09:00 06/17/21 08:58 Metoprolol Succi fabiana Er (24 Hr) 25 Mg Tablet PO 12.5 mg DAILY YARY Administration Vitals/I&O/Wt Last Vital Signs Temp 98.7 F 06/21/21 08:00 Pulse 66 06/21/21 09:22 Resp 18 06/21/21 09:17 BP 123/51 06/21/21 08:00 Pulse Ox 93 06/21/21 09:17 06/20/21 06/21/21 06/21/21 22:59 06:59 14:59 Intake Total 50 / 50 120 / 170 240 / 240 Output Total 425 / 425 625 / 1050 Balance -375 / -375 -505 / -880 240 / 240 Physical Exam Const: COMMON NORMALS: patient oriented x3 HENMT: COMMON NORMALS: normocephalic and atraumatic HEAD & SCALP: normocephalic and atraumatic Eye: COMMON NORMALS: no scleral icterus GENERAL EYE: appearance normal, both eyes and all related structures Chest: COMMONS NORMALS: normal inspection of the chest and normal palpation of entire chest wall CHEST: Yes Symmetrical chest wall rise Resp: COMMON NORMALS: normal respiratory effort, No retractions and clear to auscultation bilaterally EFFORT & INSPECTION: Yes symmetric chest movement AUSCULTATION: clear to auscultation bilaterally OTHER: Diminished air entry at bases. Cardio: COMMON NORMALS: regular rate, regular rhythm, S1 normal heart sound present, S2 normal heart sound present, No gallops present (Cardio), No murmurs present (Cardio), No rub (Cardio) and Peripheral pulses 2+ throughout RATE: regular rate RHYTHM: regular rhythm HEART SOUNDS: S1 normal heart sound present and S2 normal heart sound present PERIPHERAL PULSES: Peripheral pulses 2+ throughout GI: COMMON NORMALS: Normal to inspection, nondistended, normoactive bowel sounds present, Soft to palpation, non-tender, No hepatosplenomegaly present and no masses AUSCULTATION: Yes normoactive bowel sounds PALPATION: Yes Soft to palpation and Yes No hepatosplenomegaly present RECTAL EXAM: Yes deferred Extremity: COMMON NORMALS: no clubbing, cyanosis or edema and no pedal edema Neuro: COMMON NORMALS: patient oriented x3 Urinary Catheter Management: Jennings Latex Free: Cath Placed During This Visit: yes Reason for Continuing Indwelling Catheter: Accurate Measurement of Urinary Output in Critically Ill Patients Urinary Catheter Date of Insertion: 06/18/21 Urinary Catheter Time of Insertion: 12:45 Data : 06/21/21 02:58 06/21/21 02:58 A&P Assessment and plan (1) CHF (congestive heart failure): Status: Acute (2) Community acquired pneumonia: Status: Acute Qualifiers: Laterality: right Lung location: upper lobe of lung Qualified Code(s): J18.9 - Pneumonia, unspecified organism (3) Pleural effusion: Status: Acute Plan # New onset 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 Denies any known prior history of coronary artery disease 2D echo: EF 45%, possible lateral wall akinesis Repeat 2D echo with contrast:Mildly dilated left ventricular cavity size. Severely decreased left ventricular systolic function. Left ventricular ?ejection fraction is estimated at 25 % visually and 28% by modified biplane method.? There is moderate diffuse hypokinesis with severe hypokinesis of mid anterolateral, apical lateral, mid anteroseptal, apical septal, and apical noriega. Strict intake output charting Fluid restriction 1500 cc K>4, MG >2 Continue telemetry monitoring Lasix 80 mg p.o. twice daily on hold metoprolol succinate 12.5 mg p.o. daily currently on hold due to soft blood pressure. Continue Lisinopril Life vest has been arranged Appreciate cardiology inputs: CAD : S/P CAG : nearly occluded circumflex, 99% stenosis of proximal to mid LAD and subtotal occlusion of first diagonal. mild to moderate disease in proximal to mid RCA with severe disease in distal RCA. Patient was offered CABG, but he opted for PCI. S/p: impella assisted PCI of Px to mid LAD ( JERI x 1 ) with orbital arthrectomy Continue aspirin Plavix, statin. #CAROLE: Likely secondary to recent contrast use.( ИРИНА ) Fena is consistent with prerenal (likely from ИРИНА ). Patient is currently not volume depleted, currently not in cardiorenal syndrome. Baseline serum creatinine is: 1-1.2 Current serum creatinine is 2.1 lisinopril has been kept on hold Continue to monitor BMP Avoid Nephrotoxic's s/p Gentle IV hydration with Ns 500 cc only Intake output charting #Community-acquired pneumonia -Consolidation in the inferior left upper lobe and superior left lower lobe on CT chest -Completed Rocephin for 5 days, completed azithromycin x 3 days - sputum cx and gram stain pending Negtaive urine legionella and bacterial antigens Continue DuoNebs #Moderate to large bilateral pleural effusions: Likely secondary to decompensated heart failure: Chest x-ray has shown improvement, clinically patient has significant improvement in shortness of breath. Continue diuresis for now. Continue to monitor chest x-ray. # NSTEMI type II: Likely secondary to decompensated heart failure. -Denies any chest pain -Baseline troponin was 36, 120-minute 35.54, 6-hour 35.5 -EKG shows sinus rhythm, with first-degree AV block, left axis deviation, right bundle branch block # Type 2 diabetes mellitus, low-dose sliding scale #CODE STATUS full code #DVT prophylaxis on Lovenox Attestations Medical Necessity Statement*: Patient needs to be hospital for monitoring of kidney function. Coding Level of Care Code Acute Cut Order Hand for [facility] Fwd Exam Comprehensive Diagnoses CHF (congestive heart failure) I50.9 Community acquired pneumonia J18.9 Laterality: right Lung location: upper lobe of lung Pleural effusion J90
[2021-06-21 11:36] LABS: Glucose Point of Care 257 mg/dL (70-110)
--- NOTE | 2021-06-21 14:40 | PC.SOCIAL ---
IMM UPDATED IMM dated and initialed and copy given to patient
[2021-06-21 16:52] LABS: Glucose Point of Care 269 mg/dL (70-110)
[2021-06-21] MEDS: hyDRALAzine 10 mg Tablet PO (17:27)
[2021-06-21 20:38] LABS: Glucose Point of Care 240 mg/dL (70-110)
[2021-06-21] MEDS: atorvastatin 40 mg Tablet PO (20:52)
[2021-06-22] VITALS (9 sets, daily range): BP systolic 126–147; BP diastolic 52–72; PULSE 58–70; RESP 15–25; TEMP 36.6–36.7; O2SAT 93–96
[2021-06-22] MEDS: ipratropium-albuterol 3 mL Neb INHALATION ×2 (03:19→08:51)
[2021-06-22 03:36] LABS: Basophils # 0.1 10^3/uL (0.0-0.1); Basophils % 0.7 %; Eosinophils # 0.4 10^3/uL (0.0-0.8); Eosinophils % 3.6 %; Hematocrit 30.8 % (42.0-52.0); Hemoglobin 9.6 g/dL (11.7-16.6); Lymphocytes # 1.7 10^3/uL (0.8-4.8); Lymphocytes % 16.7 %; Mean Corpuscular HGB Conc 31.2 g/dL (30.0-36.0); Mean Corpuscular Hemoglobin 27.2 pg (28.0-34.0); Mean Corpuscular Volume 87.3 fl (80-94); Mean Platelet Volume 10.7 fL (7.4-10.4); Monocytes % 9.6 %; Neutrophils # 6.95 10^3/uL (1.8-7.7); Neutrophils % 69.2 %; Nucleated Red Blood Cells % 0 %; Platelet Count 195 10^3/cmm (130-400); Red Blood Count 3.53 10^6/uL (4.1-5.3); Red Cell Distribution Width 13.3 % (12.1-15.1)
[2021-06-22 04:02] LABS: Anion Gap 14.6 (5-19); Blood Urea Nitrogen 71 mg/dL (8-23); Calcium 8.9 mg/dL (8.5-10.5); Carbon Dioxide 26 mmol/L (22-29); Chloride 102 mmol/L (98-107); Glucose 180 mg/dL (65-115); Osmolality Calculated 311 mOsm/kg (285-295); Potassium 4.6 mmol/L (3.5-5.1); Sodium 138 mmol/L (136-145)
[2021-06-22 06:47] LABS: Glucose Point of Care 224 mg/dL (70-110)
--- NOTE | 2021-06-22 07:07 | P.PN_ITS ---
Subjective Subjective: No new complaints, he wants to go home. Fair UO Medications: Reviewed: Yes Vitals/I&O/Wt Last Vital Signs Temp 98.0 F 06/22/21 07:02 Pulse 58 L 06/22/21 07:02 Resp 25 H 06/22/21 07:02 BP 147/72 06/22/21 07:02 Pulse Ox 93 06/22/21 07:02 06/21/21 06/22/21 06/22/21 22:59 06:59 14:59 Intake Total 360 / 960 0 / 960 Output Total 850 / 850 400 / 1250 Balance -490 / 110 -400 / -290 Physical Exam Narrative: GENERAL: Averagely built and averagely nourished in no acute distress HEENT:? No pallor or icterus. NECK: No JVD,? No carotid bruit. CARDIOVASCULAR SYSTEM: S1-S2 regular.? No murmur or gallops. RESPIRATORY SYSTEM: Chest clear to auscultation.? No wheezes or rhonchi heard. No use of accessory muscles. ABDOMEN: Soft, nontender and nondistended.? Normal bowel sounds present.? EXTREMITIES: No cyanosis or edema].? No signs of chronic venous insufficiency. 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 No focal neurological deficits.? Urinary Catheter Management: Jennings Latex Free: Cath Placed During This Visit: yes Reason for Continuing Indwelling Catheter: Acute Urinary Retention or Obstruction Urinary Catheter Date of Insertion: 06/18/21 Urinary Catheter Time of Insertion: 12:45 Data : 06/22/21 02:32 06/22/21 02:32 A&P Assessment and plan (1) CAD (coronary artery disease), [place] coronary artery: S/p drug-eluting stent placement to proximal to mid LAD -Continue aspirin, Plavix and statin Status: Acute (2) CHF (congestive heart failure): Newly diagnosed cardiomyopathy with regional wall motion abnormality. -EKG with bifascicular block -Hold off metoprolol given bradcardia and TERRY inhibitor/ARB/ARNI and MRA d/t renal function -started on isodril and hydralazine -lasix 20 mg PO daily on discharge -f/u in 5-7 days with CLERICAL DENTIST ASSISTANT and in 4-6 weeks with me -plan to add MRA as outpatient and replace ISDN/hydralazine with ACEI/ARB -approved for life vest Status: Acute (3) Hypertension: Status: Acute Plan CAROLE :likely ИРИНА, BMP with improved renal function today Type 2 diabetes mellitus Pleural effusion: resolved Bifascicular block COPD Thank you for allowing me to participate in patient's care. Please feel free to call with questions or concerns. Attestations Medical Necessity Statement*: stable to be discharged Coding Level of Care Code Established Pt Acute Help Desk Representative for [facility] Fwd Patient Type Established History Comprehensive Exam Comprehensive Medical Decision Making Moderate Complexity Diagnoses CAD (coronary artery disease), [place] coronary artery I25.10 CHF (congestive heart failure) I50.9 Hypertension I10
[2021-06-22] MEDS: insulin lispro 100 unit/1 mL SUBCUT ×2 (07:39→13:08)
[2021-06-22] MEDS: docusate sodium 100 mg Capsule PO (08:36)
[2021-06-22] MEDS: aspirin 81 mg Chew Tablet PO (08:36)
[2021-06-22] MEDS: isosorbide dinitrate 20 mg Tablet 5 MG PO (08:36)
[2021-06-22] MEDS: clopidogrel 75 mg Tablet PO (08:37)
[2021-06-22] MEDS: hyDRALAzine 10 mg Tablet PO (08:37)
[2021-06-22] MEDS: pantoprazole 40 mg SDV IVP (08:40)
--- NOTE | 2021-06-22 09:00 | PC.NURSE ---
Dr. Falcon at bedside to discuss Plan of care with patient verbal instruction received to removal castellon catheter
--- NOTE | 2021-06-22 09:11 | PC.CHAP ---
Pastoral Care Encounter/Spiritual Assessment Type of Contact [] Declined sugar grinder visit [] Patient/Family/Request visit [] Outpatient visit [] Follow-up visit [] Physician referral [] Code/Alert [x] Routine visit [] Staff referral [] Actively dying [] Patient sleeping [] Family support [] [] Out of room [] Palliative care [] [] Receiving care in room [] Pre-surgical visit [] Trauma [] Long length of stay [] ICU visit [] Other: Relational/Emotional Strength [] Patient feels connected with others/family/visitors/staff [] Distress [] Loneliness/isolation [] Abandonment Spirituality of Patient [] Person of [place]ika [] Attends Pentecostalism of their [place] [] Believes in Prayer [] Reads Bible or Zoroastrian materials [] There are Spiritual issues to be addressed Soundscriber Mechanic Interventions [x] Prayer [x] Active listening [x] Non-anxious presence [x] Spiritual/emotional support [] Crisis/trauma care [] Spiritual counseling [] Bereavement support [] Provided bereavement packet [] Provided Bible/devotional materials [] Provided toy/stuffed animal, coloring book to patient or family member [] Provided Communion [] Anointing/[place] [] Salvation [x] Completed spiritual assessment [] Other: Impact on Illness or Injury [] Angry [] Fearful [] Anxious [] Often cries [] Exhaustion [] Unable to work [] Unable to attend gnosticism [] Unable to walk/stand [] Unable to read [] Unable to drive [] Unable to eat/drink [] Unable to sleep [] Unable to be with family [] Patient intubated [] Other: Summary patient surprised he has been hospitalized so long.... Time spent with patient 10 min
--- NOTE | 2021-06-22 10:00 | PC.NURSE ---
Missing TV remote
--- NOTE | 2021-06-22 11:13 | P.DS_ITS ---
Discharge Providers Date of Admission: 06/10/21 23:52 Date of Discharge: June 22, 2021 Attending Provider at Admission: Aleksander Falcon MD Attending Provider at Discharge: Aleksander Falcon MD Primary Care Provider: Abigail Lunsford NP Diagnoses at Discharge Discharge Diagnosis (1) CAD (coronary artery disease), [place] coronary artery: Status: Acute (2) CHF (congestive heart failure): Status: Acute (3) Hypertension: Status: Acute Reason for Visit Reason for Visit: SOB Hospital Course Hospital Course This is a 81-year-old male with a past medical history of COPD, insulin-d ependent type 2 diabetes mellitus, hypertension, who presents [facility] for shortness of breath Patient was admitted to [facility] for shortness of breath multifactorial from new onset heart failure with reduced ejection fraction and community-acquired pneumonia For new onset decompensated heart failure reduced ejection fraction, echocardiogram showed an EF of 25%,moderate diffuse hypokinesis with severe hypokinesis of mid anterolateral, apical lateral, mid anteroseptal, apical septal, and apical noriega. Underwent inpatient diuresis, diuresed to room air, - 2 L, due to increasing creatinine, Lasix was put on hold, creatinine on discharge 1.5. Discharged on Lasix 20 mg daily with close follow-up with cardiology as outpatient Patient underwent coronary angiogram S/P CAG :?nearly occluded circumflex, 99% stenosis of proximal to mid LAD and subtotal occlusion of first diagonal. mild to moderate disease in proximal to mid RCA with severe disease in distal RCA. Patient was offered CABG, but he opted for PCI. S/p: impella assisted PCI of Px to mid LAD ( JERI x 1 )? with orbital arthrectomy -Discharged on aspirin, Plavix, statin with close follow-up with cardiology as outpatient Patient was also found to have a community-acquired pneumonia, completed inpatient antibiotic treatment Was found to have moderate bilateral pleural effusions from heart failure as ab ove, improved with diuresis For type 2 diabetes mellitus, discharged on a low-dose sliding scale Physical Exam Const: COMMON NORMALS: no acute distress and patient oriented x3 Resp: COMMON NORMALS: normal respiratory effort, No retractions, No use of accessory muscles and clear to auscultation bilaterally AUSCULTATION: clear to auscultation bilaterally Cardio: COMMON NORMALS: regular rate, regular rhythm, S1 normal heart sound present and S2 normal heart sound present RATE: regular rate RHYTHM: regu lar rhythm HEART SOUNDS: S1 normal heart sound present and S2 normal heart sound present GI: COMMON NORMALS: Normal to inspection, nondistended, normoactive bowel sounds present, Soft to palpation, non-tender and No hepatosplenomegaly present PALPATION: Yes Soft to palpation and Yes No hepatosplenomegaly present Extremity: COMMON NORMALS: no pedal edema Neuro: COMMON NORMALS: patient oriented x3 Urinary Catheter Management: Jennings Latex Free: Cath Placed During This Visit: yes, but has since been removed by the nurse Reason for Continuing Indwelling Catheter: Accurate Measurement of Urinary Output in Critically Ill Patients Urinary Catheter Date of Insertion: 06/18/21 Urinary Catheter Time of Insertion: 12:45 Date Urinary Catheter Removed: 06/22/21 Time Urinary Catheter Discontinued: 09:01 Discharge Data Studies Completed and Pending Completed Studies During Hospitalization Category Date Time Status CTA chest [CT angio chest PE protcl [id number]] Urgent Cat Scan 06/10/21 20:05 Completed CXRP [XR chest 1V portable [id number]] AM LABS Exams 06/13/21 04:00 Completed CXRP [XR chest 1V portable [id number]] AM LABS Exams 06/15/21 04:00 Completed XR chest 1V portable [id number] Routine Exams 06/18/21 06:00 Completed XR chest 1V portable [id number] Routine Exams 06/20/21 06:23 Completed XR chest 1V portable [id number] Stat Exams 06/10/21 12:26 Completed CV. echo complete* [id number] Routine Ultrasound 06/11/21 01:52 Completed CV. echo lmt w/w contras [id number] Routine Ultrasound 06/15/21 12:20 Completed Pending at discharge Category Date Time Status CREDIT ADMINISTRATION SPECIALIST request for service Routine Exams 06/16/21 13:28 Taken CREDIT ADMINISTRATION SPECIALIST request for service Routine Exams 06/18/21 06:32 Taken BMP [Basic Metabolic Panel] AM LABS Lab 06/23/21 04:00 Ordered CBC Auto Diff [Complete Blood Count w/Auto] AM LABS Lab 06/23/21 04:00 Ordered Radiology Impressions Chest CTA 06/10/21 20:05 IMPRESSION: 1. No pulmonary embolism. 2. Consolidation in the inferior left upper lobe and superior left lower lobe suggests infection. 3. Central bronchial wall thickening bilaterally may be due to interstitial edema or bronchitis. 4. Large bilateral pleural effusions. 5. Mild centrilobular emphysema. 8. Left upper lobe pulmonary nodules measuring up to 11 mm diameter. For patients at low risk (minimal or absent history of smoking and of other known risk factors), recommend CT Chest at 3-6 months, then consider CT Chest at 18-24 months. For patients at high risk (history of smoking or of other known risk factors), recommend CT Chest at 3-6 months, then CT Chest at 18-24 months. (Reference: Aaron) REFERENCES: 1. Aaron Martins, et al. Guidelines for Management of Incidental Pulmonary Nodules Detected on CT Images: From the Fleischner Society 2017. Radiology. 2017;284(1):228-243. 2. Aaron H, et al. Guidelines for Management of Incidental Pulmonary Nodules Detected on CT Images: From the Fleischner Society 2017. Radiology. 2017;284(1):228-243. Chest X-Ray 06/20/21 06:23 IMPRESSION: No significant interval change. Pulmonary vascular congestion with suspected edema. Superimposed left lower lobe pneumonia not excluded. Laboratory Results WBC 10.0 10^3/uL (4.0-10.0) 06/22/21 02:32 RBC 3.53 10^6/uL (4.1-5.3) L 06/22/21 02:32 Hgb 9.6 g/dL (11.7-16.6) L 06/22/21 02:32 Hct 30.8 % (42.0-52.0) L 06/22/21 02:32 MCV 87.3 fl (80-94) 06/22/21 02:32 MCH 27.2 pg (28.0-34.0) L 06/22/21 02:32 MCHC 31.2 g/dL (30.0-36.0) 06/22/21 02:32 RDW 13.3 % (12.1-15.1) 06/22/21 02:32 Plt Count 195 10^3/cmm (130-400) 06/22/21 02:32 MPV 10.7 fL (7.4-10.4) H 06/22/21 02:32 Neut % (Auto) 69.2 % 06/22/21 02:32 Lymph % (Auto) 16.7 % 06/22/21 02:32 [place] % (Auto) 9.6 % 06/22/21 02:32 Eos % (Auto) 3.6 % 06/22/21 02:32 Baso % (Auto) 0.7 % 06/22/21 02:32 Neut # (Auto) 6.95 10^3/uL (1.8-7.7) 06/22/21 02:32 Lymph # (Auto) 1.7 10^3/uL (0.8-4.8) 06/22/21 02:32 [place] # (Auto) 1.0 10^3/uL (0.2-0.9) H 06/22/21 02:32 Eos # (Auto) 0.4 10^3/uL (0.0-0.8) 06/22/21 02:32 Baso # (Auto) 0.1 10^3/uL (0.0-0.1) 06/22/21 02:32 Nucleated RBC % (auto) 0 % 06/22/21 02:32 Nucleated RBCs # 0.0 /100WBC 06/22/21 02:32 PT 14.10 SECONDS (12.1-14.9) 06/16/21 06:12 INR 1.06 (0.8-1.2) 06/16/21 06:12 APTT 51.4 SECONDS (23.9-36.7) H D 06/18/21 16:40 Sodium 138 mmol/L (136-145) 06/22/21 02:32 Potassium 4.6 mmol/L (3.5-5.1) 06/22/21 02:32 Chloride 102 mmol/L (98-107) 06/22/21 02:32 Carbon Dioxide 26 mmol/L (22-29) 06/22/21 02:32 Anion Gap 14.6 (5-19) 06/22/21 02:32 BUN 71 mg/dL (8-23) H 06/22/21 02:32 Creatinine 1.5 mg/dL (0.7-1.2) H 06/22/21 02:32 GFR Calculation Not Reportable 06/22/21 02:32 Glucose 180 mg/dL (65-115) H 06/22/21 02:32 POC Glucose 224 mg/dL (70-110) H 06/22/21 06:25 Estimat Average Glucose 143 06/10/21 14:26 Hemoglobin A1c 6.6 % (4.0-6.0) H 06/10/21 14:26 Calculated Osmolality 311 mOsm/kg (285-295) H 06/22/21 02:32 Lactic Acid 0.8 mmol/L (0.5-2.2) 06/12/21 06:03 Calcium 8.9 mg/dL (8.5-10.5) 06/22/21 02:32 Phosphorus 4.2 mg/dL (2.5-4.5) 06/14/21 06:06 Magnesium 2.4 mg/dL (1.7-2.3) H 06/20/21 02:47 Total Bilirubin 0.2 mg/dL (0.15-1.2) 06/15/21 05:04 AST 16 U/L (0-40) 06/15/21 05:04 ALT 15 U/L (0-41) 06/15/21 05:04 Alkaline Phosphatase 108 IU/L (40-130) 06/15/21 05:04 Troponin T Baseline 36 ng/L (0-15) H 06/10/21 14:26 Troponin T 120 Minute 35.54 ng/L (0-15) H 06/10/21 16:29 Delta Troponin T -0.46 ABS# (0-10) L 06/10/21 16:29 Troponin T Hi Sens 6Hr 35.51 ng/L (0-15) H 06/10/21 20:14 Troponin T Hi Sens 6Hr Delta -0.49 ng/L (0-12) L 06/10/21 20:14 C-Reactive Protein 26.9 mg/L (0.0-4.9) H 06/10/21 20:14 NT-Pro-B Natriuret Pep 1964 pg/mL (0-450) H 06/17/21 03:40 Total Protein 6.0 g/dL (6.6-8.7) L 06/15/21 05:04 Albumin 3.4 g/dL (3.5-5.2) L 06/15/21 05:04 Globulin 2.6 g/dL (1.3-4.6) 06/15/21 05:04 Triglycerides 104 mg/dL (0-150) 06/12/21 06:03 Cholesterol 196 mg/dL (0-200) 06/12/21 06:03 LDL Cholesterol, Calc 135 mg/dL (50-129) H 06/12/21 06:03 HDL Cholesterol 40 mg/dL (60-100) L 06/12/21 06:03 LDL/HDL Ratio 3.38 RATIO (0.00-3.22) H 06/12/21 06:03 Cholesterol/HDL Ratio 4.90 mg/dL (1.0-5.00) 06/12/21 06:03 Procalcitonin 0.24 ng/mL (0-0.5) 06/10/21 20:14 TSH 2.16 uIU/mL (0.27-4.20) 06/12/21 06:03 Ur Random Sodium 38 mmol/L 06/20/21 13:50 Urine Creatinine 147 mg/dL (39-259) 06/20/21 13:50 Coronavirus 229E (PCR) Not detected (NOT DETECT) 06/13/21 10:55 Influenza Type A Ag Negative (Negative) 06/11/21 07:52 Influenza Type B Ag Negative (Negative) 06/11/21 07:52 SARS-CoV-2 (PCR) Not detected (NOT DETECT) 06/13/21 10:55 SARS-CoV-2 Ag (Rapid) Negative (Negative) 06/10/21 20:26 Vitals Last Vital Signs Temp 98.0 F 06/22/21 07:02 Pulse 66 06/22/21 09:00 Resp 16 06/22/21 09:00 BP 147/72 06/22/21 07:02 Pulse Ox 96 06/22/21 09:00 Discharge Plan Discharge Patient Disposition: Home Condition: Stable Prescriptions: New clopidogrel 75 mg Tablet 75 mg PO DAILY 30 Days Qty: 30 0RF atorvastatin 40 mg Tablet 40 mg PO BEDTIME 30 Days Qty: 30 0RF isosorbide dinitrate 20 mg Tablet 5 mg PO TID 30 Days Qty: 23 0RF docusate sodium 100 mg Capsule 100 mg PO BID 30 Days Qty: 60 0RF nitroglycerin 0.4 mg Tablet, Sublingual 0.4 mg sublingual Q5M PRN (Reason: Chest Pain) 30 Days Qty: 30 0RF aspirin [Children's Aspirin] 81 mg Tablet,Chewable 81 mg PO DAILY 30 Days Qty: 30 0RF hydralazine 10 mg Tablet 10 mg PO TID 30 Days Qty: 90 0RF furosemide [Lasix] 40 mg tablet 20 mg PO DAILY 30 Days Qty: 30 0RF insulin aspart U-100 [Novolog Flexpen U-100 Insulin] 100 unit/mL (3 mL) insulin pen See Rx Instructions .ROUTE .COMPLEX Qty: 15 0RF Rx Instructions: Inject subcu 3 times daily after meals, based on blood sugars and insulin sliding scale provided Continued (DME) Diabetic shoes See Rx Instructions .ROUTE .MEDSUPPLY Qty: 1 0RF Rx Instructions: With 3 pairs of inserts, custom made by [employer] albuterol sulfate 90 mcg/actuation HFA aerosol inhaler 1 puff inhalation Q6H PRN (Reason: Shortness Of Breath) 0RF (DME) fit for left diabetic shoe and inserts See Rx Instructions .Route .MEDSUPPLY Qty: 1 0RF Rx Instructions: Patient is released from cam boot and can continue to his diabetic shoe to the left. Patient needs to have inserts fitted je cilostazol 50 mg tablet 50 mg PO DAILY 0RF Vitamin D3 100 mcg (4,000 unit) Capsule 100 mcg PO DAILY 0RF Discontinued insulin degludec 200 unit/mL (3 mL) insulin pen 40 unit SUBCUT PRN PRN (Reason: blood sugar) 0RF lisinopril 20 mg tablet 20 mg PO DAILY 0RF aspirin 81 mg Tablet,Delayed Release (Dr/Ec) 81 mg PO DAILY 0RF furosemide 20 mg tablet 20 mg PO DAILY 0RF Discharge Orders: Discharge Order (Routine); Ordered 06/22/21 Ordered By: Aleksander Falcon Referrals: Abigail Lunsford NP [Primary Care Provider] - 06/26/21 9:30 am Kori Rodriguez MD [Physician] - 07/21/21 10:45 am Discharge Diet: Regular Discharge Activity: Resume usual activity Patient Instructions: Opioid Safety Activity Restrictions/Additional Instructions: -Insulin sliding fingerstick? Insulin 141-180 2 units/sq 181-220 4 units/sq 221-260 6 units/sq 261-300 8 units/sq 301-350 10 units/sq 351-400 12 units/sq > 400? 14 units/sq -Please wear LifeVest at all times -Please take aspirin and Plavix as prescribed -Monitor for bloody or black stools if so go to the emergency room -If you have chest pain please go to the emergency room -Follow-up with cardiology as scheduled -If you feel lightheaded or dizzy please go to the emergency room -For bilateral pleural effusions take Lasix as prescribed Discharge Attestations Time Spent in Discharge Care*: less than 30 min Quality Metrics Clinical Quality Measures [ No reported AMI, CVA or VTE this stay] Coding Level of Care Code Acute [facility] note Diagnoses CAD (coronary artery disease), [place] coronary artery I25.10 CHF (congestive heart failure) I50.9 Hypertension I10
[2021-06-22 11:55] LABS: Glucose Point of Care 389 mg/dL (70-110)
--- NOTE | 2021-06-22 15:02 | PC.NURSE ---
Discharge Note Patient discharged to Home via private vehicle accompanied by daughter. Discharge instructions reviewed with patient and/or financial sales representative. Mobile pharmacy medications and/or prescriptions provided. Belongings/home medications returned.
== END 2021-06-22 15:03 | disposition home or self-care (01) | DRG 216 ==
LOC: ER 23:33 → ER IP 06-11 03:48 → MEDSURG 06-11 16:14 → CSU 06-16 14:51
PROVIDERS: Internal Medicine; Internal Medicine Cardiovascular Disease; Physician Assistant; Student in an Organized Health Care Education/Training Program; Admitting Provider Family Medicine; Emergency Provider Emergency Medicine; PCP Nurse Practitioner Family; Visit Provider Family Medicine
PROC: B215YZZ Fluoroscopy of Left Heart using Other Contrast (ICD-10-PCS; principal; 2021-06-16 16:30)
PROC: 5A0221D Assistance with Cardiac Output using Impeller Pump, Continuous (ICD-10-PCS; principal; 2021-06-18 08:30)
DX: I11.0 Hypertensive heart disease with heart failure (principal); I50.23 Acute on chronic systolic (congestive) heart failure; I21.A1 Myocardial infarction type 2; J18.9 Pneumonia, unspecified organism; N17.9 Acute kidney failure, unspecified; I25.10 Atherosclerotic heart disease of native coronary artery without angina pectoris; Z87.891 Personal history of nicotine dependence; J43.2 Centrilobular emphysema; E11.42 Type 2 diabetes mellitus with diabetic polyneuropathy; E11.51 Type 2 diabetes mellitus with diabetic peripheral angiopathy without gangrene; I48.91 Unspecified atrial fibrillation; I42.9 Cardiomyopathy, unspecified; T50.8X5A Adverse effect of diagnostic agents, initial encounter
CPT/HCPCS: 33975; 36415; 36416; 51702; 71045; 71275; 80048; 80053; 80061; 82274; 82575; 82962; 83036; 83605; 83735; 83880; 84100; 84145; 84300; 84443; 84484; 85025; 85347; 85610; 85730; 86140; 86403; 87040; 87426; 87449; 87635; 87804; 93005; 93306; 93452; 93458; 94640; 94664; 96365; 96366; 96367; 96372; 96375; 97110; 97116; 97161; 99285; C1724; C1725; C1760; C1769; C1874; C1887; C1894; C8924; C9113; C9602; J0456; J0696; J1200; J1644; J1650; J1815; J1940; J2250; J2930; J3010; J3490; J7030; J7040; J7050; Q9956; Q9967

== ENCOUNTER → 2021-07-13 09:14 | Outpatient (BNVA) | payer MEDICARE, SELFPAY | PROVIDERS: PCP Nurse Practitioner Family; Visit Provider Podiatrist Foot & Ankle Surgery | DX: E11.621 Type 2 diabetes mellitus with foot ulcer (principal); L97.519 Non-pressure chronic ulcer of other part of right foot with unspecified severity | CPT/HCPCS: 73630 ==

== ENCOUNTER → 2021-08-03 10:00 | Outpatient (BNVA) | payer MEDICARE, SELFPAY | PROVIDERS: PCP Nurse Practitioner Family; Visit Provider Podiatrist Foot & Ankle Surgery | DX: E11.42 Type 2 diabetes mellitus with diabetic polyneuropathy (principal); I73.9 Peripheral vascular disease, unspecified; L97.511 Non-pressure chronic ulcer of other part of right foot limited to breakdown of skin; Z89.429 Acquired absence of other toe(s), unspecified side; L97.412 Non-pressure chronic ulcer of right heel and midfoot with fat layer exposed; Z87.891 Personal history of nicotine dependence | CPT/HCPCS: 99213; 99214 ==

== ENCOUNTER → 2021-08-31 10:52 | Outpatient (BNVA) | payer MEDICARE, SELFPAY | PROVIDERS: PCP Nurse Practitioner Family; Visit Provider Podiatrist Foot & Ankle Surgery | DX: E11.621 Type 2 diabetes mellitus with foot ulcer (principal); L97.519 Non-pressure chronic ulcer of other part of right foot with unspecified severity; E11.42 Type 2 diabetes mellitus with diabetic polyneuropathy; I70.235 Atherosclerosis of native arteries of right leg with ulceration of other part of foot; L97.511 Non-pressure chronic ulcer of other part of right foot limited to breakdown of skin; L97.412 Non-pressure chronic ulcer of right heel and midfoot with fat layer exposed; Z89.429 Acquired absence of other toe(s), unspecified side; Z87.891 Personal history of nicotine dependence | CPT/HCPCS: 87070; 87075; 87077; 87186; 87205; 99214 ==

== ENCOUNTER → 2021-09-14 09:38 | Outpatient (BNVA) | payer MEDICARE, SELFPAY | PROVIDERS: PCP Nurse Practitioner Family; Visit Provider Podiatrist Foot & Ankle Surgery | DX: E11.621 Type 2 diabetes mellitus with foot ulcer (principal); L97.514 Non-pressure chronic ulcer of other part of right foot with necrosis of bone; E11.42 Type 2 diabetes mellitus with diabetic polyneuropathy; I70.235 Atherosclerosis of native arteries of right leg with ulceration of other part of foot; Z89.429 Acquired absence of other toe(s), unspecified side | CPT/HCPCS: 11044 ==

== ENCOUNTER → 2021-09-30 09:56 | Outpatient (BNVA) | payer MEDICARE, SELFPAY | PROVIDERS: PCP Nurse Practitioner Family; Visit Provider Podiatrist Foot & Ankle Surgery | DX: E11.621 Type 2 diabetes mellitus with foot ulcer (principal); L97.514 Non-pressure chronic ulcer of other part of right foot with necrosis of bone; I70.235 Atherosclerosis of native arteries of right leg with ulceration of other part of foot; E11.42 Type 2 diabetes mellitus with diabetic polyneuropathy; Z89.429 Acquired absence of other toe(s), unspecified side | CPT/HCPCS: 11044; 73630; 87070; 87075; 87077; 87186; 87205 ==

== ENCOUNTER → 2021-10-14 09:47 | Outpatient (BNVA) | payer MEDICARE, SELFPAY | PROVIDERS: PCP Nurse Practitioner Family; Visit Provider Podiatrist Foot & Ankle Surgery | DX: E11.621 Type 2 diabetes mellitus with foot ulcer (principal); L97.519 Non-pressure chronic ulcer of other part of right foot with unspecified severity; E11.42 Type 2 diabetes mellitus with diabetic polyneuropathy; I73.9 Peripheral vascular disease, unspecified; Z89.429 Acquired absence of other toe(s), unspecified side | CPT/HCPCS: 99213; 99214 ==

== ENCOUNTER → 2021-10-29 11:18 | Outpatient (BNVA) | payer MEDICARE, SELFPAY | PROVIDERS: PCP Nurse Practitioner Family; Visit Provider Podiatrist Foot & Ankle Surgery | DX: E11.621 Type 2 diabetes mellitus with foot ulcer (principal); L97.519 Non-pressure chronic ulcer of other part of right foot with unspecified severity; I70.235 Atherosclerosis of native arteries of right leg with ulceration of other part of foot; E11.42 Type 2 diabetes mellitus with diabetic polyneuropathy; Z89.429 Acquired absence of other toe(s), unspecified side; Z79.84 Long term (current) use of oral hypoglycemic drugs | CPT/HCPCS: 11044 ==

== ENCOUNTER → 2021-11-12 10:54 | Outpatient (BNVA) | payer MEDICARE, SELFPAY | PROVIDERS: PCP Nurse Practitioner Family; Visit Provider Podiatrist Foot & Ankle Surgery | DX: E11.621 Type 2 diabetes mellitus with foot ulcer (principal); L97.519 Non-pressure chronic ulcer of other part of right foot with unspecified severity; L97.529 Non-pressure chronic ulcer of other part of left foot with unspecified severity; I70.235 Atherosclerosis of native arteries of right leg with ulceration of other part of foot; E11.42 Type 2 diabetes mellitus with diabetic polyneuropathy; Z89.429 Acquired absence of other toe(s), unspecified side; Z79.4 Long term (current) use of insulin | CPT/HCPCS: 99213; 99214 ==

== ENCOUNTER → 2021-11-25 13:50 | Outpatient (BNVA) | payer MEDICARE, SELFPAY | PROVIDERS: PCP Nurse Practitioner Family; Visit Provider Podiatrist Foot & Ankle Surgery | DX: L97.516 Non-pressure chronic ulcer of other part of right foot with bone involvement without evidence of necrosis (principal); E11.621 Type 2 diabetes mellitus with foot ulcer; I70.235 Atherosclerosis of native arteries of right leg with ulceration of other part of foot; E11.42 Type 2 diabetes mellitus with diabetic polyneuropathy; Z89.429 Acquired absence of other toe(s), unspecified side | CPT/HCPCS: 99214 ==

== ENCOUNTER → 2021-12-11 14:43 | Outpatient (BNVA) | payer MEDICARE, SELFPAY | PROVIDERS: PCP Nurse Practitioner Family; Visit Provider Podiatrist Foot & Ankle Surgery | DX: E11.621 Type 2 diabetes mellitus with foot ulcer (principal); L97.519 Non-pressure chronic ulcer of other part of right foot with unspecified severity; Z79.4 Long term (current) use of insulin; I70.235 Atherosclerosis of native arteries of right leg with ulceration of other part of foot; E11.42 Type 2 diabetes mellitus with diabetic polyneuropathy; Z89.429 Acquired absence of other toe(s), unspecified side | CPT/HCPCS: 99214 ==

== ENCOUNTER → 2021-12-31 12:53 | Outpatient (BNVA) | payer MEDICARE, SELFPAY | PROVIDERS: PCP Nurse Practitioner Family; Visit Provider Podiatrist Foot & Ankle Surgery | DX: E11.621 Type 2 diabetes mellitus with foot ulcer; L97.514 Non-pressure chronic ulcer of other part of right foot with necrosis of bone; I70.235 Atherosclerosis of native arteries of right leg with ulceration of other part of foot; E11.42 Type 2 diabetes mellitus with diabetic polyneuropathy; Z89.429 Acquired absence of other toe(s), unspecified side; Z79.4 Long term (current) use of insulin | CPT/HCPCS: 99215 ==

== ENCOUNTER 2022-01-08 05:30 | Day surgery (SDC) | payer MEDICARE, SELFPAY ==
[2022-01-07 09:25] VITALS: BMI 24.3
[2022-01-08 06:04] VITALS: BP 157/63; PULSE 56; RESP 18; TEMP 36.7; O2SAT 93
[2022-01-08 06:35] LABS: Glucose Point of Care 150 mg/dL (70-110)
[2022-01-08] MEDS: sodium chloride 0.9% 1,000 ML 30 ML IV (06:39)
--- NOTE | 2022-01-08 06:52 | W.PM.OPSUD ---
Surgery/Procedure H&P Update DATE OF PROCEDURE: January 08, 2022 DATE H&P PERFORMED: 12/31/21 CHANGES TO PREVIOUS DOCUMENTATION: None PREOP DIAGNOSIS: Osteomyelitis right hallux PLANNED PROCEDURE: Operation Date: 01/08/22 07:00 Proposed Procedures p Amputation of right great toe CPT:67117,L97.514(Right) - Jovani Huerta DPM
--- NOTE | 2022-01-08 06:54 | PM.OP ---
Operative Report Date of procedure: January 08, 2022 Pre-op diagnosis: Preop Diagnosis Osteomyelitis right hallux Post-op diagnosis: Same Post-op findings: Osteomyelitis right hallux Procedure done: Right hallux amputation. CPT code 86577 Implants: 3-0 Vicryl, 3-0 nylon Specimens removed/disposition: None Pathology: Right hallux sent to pathology for permanent Surgeon: Jovani Huerta D.P.M. Clinical Operations Manager: Yusuf Estimated blood loss: 5 13 IV fluids: None Urine output: None Complications: None Findings: Dry gangrene with osteomyelitis right hallux. Brief History: Patient requesting right hallux amputation he is concerned that the wound is poorly appearing and getting worse, he is concerned that the wound is putting his foot at risk should infection ascend.? His daughter is also supportive and requesting right hallux amputation.? At this time is clinically stable and this can be performed outpatient.? Based off of previous cultures Levaquin 750 mg to be taken once daily was prescribed for 14 days.? Discussed risks versus benefits of surgery.? Risks of right hallux amputation include but are not limited to surgical site dehiscence, poor healing surgical site, failure to eliminate infection.? Ascending infection and need for higher level of amputation, need for antibiotic therapy and wound care, need for orthopedic shoes/diabetic shoes with toe filler, transfer pressure and transfer ulcers.? Altered mechanics.? Patient is agreeable wishes to proceed.? Patient n.p.o. since midnight. Informed consent signed by patient and myself, initialed patient's right foot. No guarantees written, expressed or implied. Patient wishes to proceed. Is accompanied by his daughter Fabienne. Procedure: Under mild sedation the patient was brought to the operating room and remained on the gurney in supine position. Timeout was performed. Anesthesia was then administered by the anesthesia service. Local anesthesia was injected by myself consisting of 0.5% Marcaine plain total 30 cc and a right White block. Well-padded high calf tourniquet applied to the right lower extremity. Right lower extremity was scrubbed, prepped and draped utilizing normal aseptic technique. Right foot was elevated and the tourniquet inflated to 250 mmHg. Attention was directed to the right hallux where a full-thickness fishmouth incision was performed down to bone and the right hallux was disarticulated sharply through the metatarsal phalangeal joint and passed from operative field, this was sent to pathology for permanent. The head of the first metatarsal was bright, white and of normal density and color without signs of devitalized tissue. Surrounding soft tissue was vital and all bleeders were ligated and cauterized as necessary. The incision was then closed with 3-0 Vicryl and 3-0 nylon. The incision was then dressed with Adaptic, sterile 4 x 4, Kerlix and Lenard wrap. Postop shoe was applied. Tourniquet was deflated and a prompt hyperemic response was noted to the amputation site and remaining digits of the right foot. Patient tolerated the procedure and anesthesia well and was transferred to the PACU with vital signs stable and vascular status intact. Following a period of postoperative monitoring to be discharged home. Has follow-up scheduled and discharge instructions.
[2022-01-08] MEDS: ceFAZolin 2,000 MG in sodium chloride 0.9% (plus) 50 ML 100 MG IV (07:00)
--- NOTE | 2022-01-08 07:02 | ANES.PREANE2 ---
Pre-Anesthetic Assessment Height/Weight: Height 1.85 m Weight 83.461 kg Temp Pulse Resp BP Pulse Ox O2 Del Method 98.0 F 56 L 18 157/63 93 01/08/22 06:04 01/08/22 06:04 01/08/22 06:04 01/08/22 06:04 01/08/22 06:04 01/08/22 06:07 Preop Diagnosis: Osteomyelitis right hallux Operation Date: 01/08/22 07:00 Proposed Procedures p Amputation of right great toe CPT:94697,L97.514(Right) - Jovani Huerta DPM Familial anesthetic complications: none Was Beta Lauren taken within 24 hours: N/A Was Clonidine taken within 24 hours: N/A Last intake: Intake Last Liquid Date 01/07/22 Last Liquid Time 21:00 Last Solid Date 01/07/22 Last Solid Time 18:00 Social Tobacco and No alcohol Exam alert, oriented x 3 and regular rate & rhythm rhonchi Airway Submandibular: within normal limits Cervical ROM: within normal limits Mallampati: Class II Dentition: false Pulmonary Chronic Obstructive Pulmonary Disease CV/HEM Anemia, Coronary Artery Disease, Congestive Heart Failure, Hypertension and Peripheral Vascular Disease Metabolic Diabetes Mellitus and Hyperlipidemia Anesthetic Plan ASA status: 3 Anesthesia: MAC Medications/Allergies Home Medications Medication Instructions Recorded Confirmed Last Taken Type albuterol sulfate 90 mcg/actuation 1 puff inhalation Q6H PRN 03/17/20 01/07/22 07/23/20 History aerosol inhaler Shortness Of Breath cholecalciferol (vitamin D3) 100 100 mcg PO DAILY 05/01/20 01/08/22 01/07/22 History mcg (4,000 unit) capsule (Vitamin D3) Diabetic shoes #1 ea 07/01/20 12/31/21 Unknown Rx levofloxacin 750 mg tablet 750 mg PO DAILY 14 days #14 tabs 12/31/21 01/08/22 01/07/22 Rx ascorbic acid (vitamin C) 500 mg 500 mg PO DAILY 01/07/22 01/08/22 01/07/22 History tablet (Vitamin C) aspirin 81 mg tablet,delayed 81 mg PO DAILY 01/07/22 01/08/22 01/07/22 History release atorvastatin 40 mg tablet 40 mg PO BID 01/07/22 01/08/22 01/07/22 History carvedilol 6.25 mg tablet 6.25 mg PO BID 01/07/22 01/08/22 01/07/22 History clopidogrel 75 mg tablet (Plavix) 75 mg PO DAILY 01/07/22 01/08/22 01/06/22 History cyanocobalamin (vitamin B-12) 2,000 mcg PO DAILY 01/07/22 01/08/22 01/07/22 History 2,000 mcg tablet,extended release (Vitamin B-12 ER) ferrous fumarate 55 mg PO DAILY 01/07/22 01/08/22 01/07/22 History fluticasone fur. 200 mcg-umeclid 1 inh inhalation DAILY 01/07/22 01/07/22 Unknown History 62.5 mcg-vilant 25 mcg inhalat.powder (Trelegy Ellipta) furosemide 20 mg tablet 20 mg PO DAILY 01/07/22 01/08/22 01/06/22 History insulin degludec 200 unit/mL (3 40 unit SUBCUT DAILY 01/07/22 01/07/22 Unknown History mL) subcutaneous pen (Tresiba FlexTouch U-200 insulin) isosorbide dinitrate 5 mg tablet 5 mg PO TID 01/07/22 01/08/22 01/07/22 History losartan 50 mg tablet 50 mg PO ONCE 01/07/22 01/08/22 01/07/22 History Allergies Allergy/AdvReac Type Severity Reaction Status Date / Time codeine Allergy Unknown Unknown Verified 01/07/22 09:11 Current Medications Generic Name Dose Route Start Last Admin Trade Name Freq PRN Reason Stop Dose Admin Sodium Chloride 1,000 mls @ 30 mls/hr 01/08/22 06:00 01/08/22 06:39 Sodium Chloride 0.9% IV 01/09/22 05:59 30 mls/hr .Q24H YARY Administration PFSH Anesthesia Medical History COPD (chronic obstructive pulmonary disease) Diabetic polyneuropathy associated with type 2 diabetes mellitus History of atrial fibrillation Hypertension Venous insufficiency Surgical History History of foot surgery History of hip surgery Status post bilateral hernia repair Social History Smoking and tobacco status: former smoker Household members: none Marital status: / Data Anesthesia Cardiac Studies: Echocardiogram 06/15/21
[2022-01-08 07:36] VITALS: BP 111/49; PULSE 52; RESP 16; TEMP 36.4; O2SAT 100
[2022-01-08 07:42] VITALS: BP 118/49; PULSE 56; RESP 15; O2SAT 100
[2022-01-08 07:47] VITALS: BP 124/51; PULSE 51; RESP 16; TEMP 36.9; O2SAT 100
[2022-01-08 07:58] VITALS: BP 122/49; PULSE 50; RESP 18; TEMP 36.9; O2SAT 99
--- NOTE | 2022-01-08 14:53 | ANE.PACU2 ---
Inpatient post-anesthesia follow up: Airway intact: Yes Vital signs: Temperature 98.4 F Pulse Rate 50 Respiratory Rate 18 Blood Pressure 122/49 Pulse Oximetry 99 Oxygen Delivery Me thod Room Air Oxygen Flow Rate 6 Fraction of Inspir ed Oxygen Hydration adequate: Yes Nausea and vomiting: No Pain level: 1 Mental status: Baseline
== END 2022-01-08 08:34 | disposition home or self-care (01) ==
PROVIDERS: Visit Provider Podiatrist Foot & Ankle Surgery
PROC: (CPT 28825; principal; 2022-01-08 07:00)
DX: M86.8X7 Other osteomyelitis, ankle and foot (principal); J44.9 Chronic obstructive pulmonary disease, unspecified; I25.10 Atherosclerotic heart disease of native coronary artery without angina pectoris; I11.0 Hypertensive heart disease with heart failure; I50.9 Heart failure, unspecified; E78.5 Hyperlipidemia, unspecified; Z79.4 Long term (current) use of insulin; E11.42 Type 2 diabetes mellitus with diabetic polyneuropathy; Z87.891 Personal history of nicotine dependence
CPT/HCPCS: 28825; 36416; 82962; 88305; 88311; J2405; J2704; J3490; J7030

== ENCOUNTER → 2022-01-14 14:10 | Outpatient (BNVA) | payer MEDICARE, SELFPAY | PROVIDERS: Visit Provider Podiatrist Foot & Ankle Surgery | DX: E11.621 Type 2 diabetes mellitus with foot ulcer (principal); L97.514 Non-pressure chronic ulcer of other part of right foot with necrosis of bone; I70.235 Atherosclerosis of native arteries of right leg with ulceration of other part of foot; E11.42 Type 2 diabetes mellitus with diabetic polyneuropathy; Z89.429 Acquired absence of other toe(s), unspecified side; Z79.4 Long term (current) use of insulin | CPT/HCPCS: 99214 ==

== ENCOUNTER → 2022-01-15 15:50 | Outpatient (BNVA) | payer MEDICARE, SELFPAY | PROVIDERS: Visit Provider Podiatrist Foot & Ankle Surgery | DX: I70.235 Atherosclerosis of native arteries of right leg with ulceration of other part of foot (principal); E11.42 Type 2 diabetes mellitus with diabetic polyneuropathy; Z89.429 Acquired absence of other toe(s), unspecified side; Z79.4 Long term (current) use of insulin | CPT/HCPCS: 99213 ==

== ENCOUNTER → 2022-01-21 13:59 | Outpatient (BNVA) | payer MEDICARE, SELFPAY | PROVIDERS: Visit Provider Podiatrist Foot & Ankle Surgery | DX: I70.235 Atherosclerosis of native arteries of right leg with ulceration of other part of foot (principal); E11.42 Type 2 diabetes mellitus with diabetic polyneuropathy; Z89.411 Acquired absence of right great toe; Z79.4 Long term (current) use of insulin | CPT/HCPCS: 99214 ==

== ENCOUNTER → 2022-01-28 10:19 | Outpatient (BNVA) | payer MEDICARE, SELFPAY | PROVIDERS: Visit Provider Podiatrist Foot & Ankle Surgery | DX: Z98.890 Other specified postprocedural states (principal); I70.235 Atherosclerosis of native arteries of right leg with ulceration of other part of foot; E11.42 Type 2 diabetes mellitus with diabetic polyneuropathy; Z89.429 Acquired absence of other toe(s), unspecified side; Z79.4 Long term (current) use of insulin | CPT/HCPCS: 99214 ==

== ENCOUNTER → 2022-02-18 10:48 | Outpatient (BNVA) | payer MEDICARE, SELFPAY | PROVIDERS: Visit Provider Podiatrist Foot & Ankle Surgery | DX: Z98.890 Other specified postprocedural states (principal); I70.235 Atherosclerosis of native arteries of right leg with ulceration of other part of foot; E11.42 Type 2 diabetes mellitus with diabetic polyneuropathy; Z89.421 Acquired absence of other right toe(s); Z79.4 Long term (current) use of insulin | CPT/HCPCS: 99024; 99214 ==

== ENCOUNTER → 2022-03-02 09:22 | Outpatient (BNVA) | payer MEDICARE, SELFPAY | PROVIDERS: Visit Provider Podiatrist Foot & Ankle Surgery | DX: E11.42 Type 2 diabetes mellitus with diabetic polyneuropathy (principal); Z89.429 Acquired absence of other toe(s), unspecified side; Z79.4 Long term (current) use of insulin; I73.9 Peripheral vascular disease, unspecified; Z98.890 Other specified postprocedural states | CPT/HCPCS: 73630; 99214 ==

== ENCOUNTER → 2022-03-15 15:23 | Outpatient (BNVA) | payer MEDICARE, SELFPAY | PROVIDERS: Visit Provider Podiatrist Foot & Ankle Surgery | DX: E11.621 Type 2 diabetes mellitus with foot ulcer (principal); L97.514 Non-pressure chronic ulcer of other part of right foot with necrosis of bone; Z79.4 Long term (current) use of insulin; E11.42 Type 2 diabetes mellitus with diabetic polyneuropathy; I73.9 Peripheral vascular disease, unspecified; Z89.429 Acquired absence of other toe(s), unspecified side | CPT/HCPCS: 99214 ==

== ENCOUNTER 2022-03-18 10:05 | Day surgery (SDC) | payer MEDICARE, SELFPAY ==
[2022-03-17 14:23] VITALS: BMI 23.1
[2022-03-18 10:37] VITALS: BP 134/70; PULSE 57; RESP 18; TEMP 36.9; O2SAT 96
[2022-03-18 11:04] LABS: Glucose Point of Care 110 mg/dL (70-110)
--- NOTE | 2022-03-18 11:04 | ANES.PREANE2 ---
Pre-Anesthetic Assessment Height/Weight: Height 1.85 m Weight 79.379 kg Temp Pulse Resp BP Pulse Ox O2 Del Method 98.4 F 57 L 18 134/70 96 03/18/22 10:37 03/18/22 10:37 03/18/22 10:37 03/18/22 10:37 03/18/22 10:37 03/18/22 10:39 Preop Diagnosis: Osteomyelitis right foot Operation Date: 03/18/22 12:00 Proposed Procedures p Partial first ray resection, right foot 23698,L97.514(Right) - Jovani Huerta DPM Familial anesthetic complications: None Was Beta Lauren taken within 24 hours: Yes Was Clonidine taken within 24 hours: N/A Last intake: Intake Last Liquid Date 03/17/22 Last Liquid Time 20:00 Last Solid Date 03/17/22 Last Solid Time 17:00 Social No alcohol and No tobacco Exam alert, oriented x 3, clear to auscultation bilaterally and regular rate & rhythm Airway Mallampati: Class III Dentition: full Pulmonary None reported CV/HEM Coronary Artery Disease, Congestive Heart Failure, Hypertension and Peripheral Vascular Disease Ischemic cardiomyopathy - JERI placed in june and balloon angioplasty EF 25% on 06/23 echo Metabolic Diabetes Mellitus and Hyperlipidemia Anesthetic Plan ASA status: 4 Anesthesia: MAC Risk of > 500 ml blood loss (7ml/kg in children): No Medications/Allergies Home Medications Medication Instructions Recorded Confirmed Last Taken Type albuterol sulfate 90 mcg/actuation 1 puff inhalation Q6H PRN 03/17/20 03/17/22 07/23/20 History aerosol inhaler Shortness Of Breath cholecalciferol (vitamin D3) 100 100 mcg PO DAILY 05/01/20 03/17/22 03/17/22 History mcg (4,000 unit) capsule (Vitamin D3) Diabetic shoes #1 ea 07/01/20 03/15/22 Unknown Rx ascorbic acid (vitamin C) 500 mg 500 mg PO DAILY 01/07/22 03/17/22 03/17/22 History tablet (Vitamin C) aspirin 81 mg tablet,delayed 81 mg PO DAILY 01/07/22 03/17/22 03/17/22 History release atorvastatin 40 mg tablet 40 mg PO BID 01/07/22 03/17/22 03/17/22 History carvedilol 6.25 mg tablet 3.125 mg PO BID 01/07/22 03/17/22 03/18/22 History clopidogrel 75 mg tablet (Plavix) 75 mg PO DAILY 01/07/22 03/17/22 03/17/22 History cyanocobalamin (vitamin B-12) 2,000 mcg PO DAILY 01/07/22 03/17/22 03/17/22 History 2,000 mcg tablet,extended release (Vitamin B-12 ER) ferrous fumarate 55 mg (18 mg 55 mg PO DAILY 01/07/22 03/17/22 03/17/22 History iron) tablet,extended release fluticasone fur. 200 mcg-umeclid 1 inh inhalation DAILY 01/07/22 03/17/22 03/17/22 History 62.5 mcg-vilant 25 mcg inhalat.powder (Trelegy Ellipta) furosemide 20 mg tablet 20 mg PO DAILY 01/07/22 03/17/22 03/17/22 History insulin degludec 200 unit/mL (3 40 unit SUBCUT DAILY 01/07/22 03/17/22 03/16/22 History mL) subcutaneous pen (Tresiba FlexTouch U-200 insulin) isosorbide dinitrate 5 mg tablet 5 mg PO TID 01/07/22 03/17/22 03/18/22 History levofloxacin 750 mg tablet 750 mg PO DAILY 14 days #14 tabs 01/21/22 03/17/22 03/17/22 Rx dapagliflozin 10 mg tablet 10 mg PO DAILY 01/28/22 03/17/22 03/17/22 History (Farxiga) Allergies Allergy/AdvReac Type Severity Reaction Status Date / Time codeine Allergy Unknown Unknown Verified 03/17/22 14:04 [facility] Anesthesia Medical History COPD (chronic obstructive pulmonary disease) Diabetic polyneuropathy associated with type 2 diabetes mellitus History of atrial fibrillation Hypertension Venous insufficiency Surgical History History of foot surgery History of hip surgery Status post bilateral hernia repair Social History Smoking and tobacco status: former smoker Household members: none Marital status: / Data Anesthesia Cardiac Studies: Echocardiogram 06/15/21
--- NOTE | 2022-03-18 11:07 | ECG_ITS ---
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 Measurements Intervals Deposit Rate: 53 P: -50 NM: 284 QRS: -89 QRSD: 162 T: 34 QT: 484 QTc: 458 Interpretive Statements SINUS BRADYCARDIA WITH FIRST DEGREE AV BLOCK LEFT AXIS DEVIATION [QRS AXIS < -30] RIGHT BUNDLE BRANCH BLOCK [120+ ms QRS DURATION, UPRIGHT V1, 40+ ms S IN I/aVL/V4/V5/V6] POSSIBLE ANTERIOR MYOCARDIAL INFARCTION , OF INDETERMINATE AGE [30 ms Q WAVE IN V3/V4, OR R < 0.2 mV IN V4] Compared to ECG 06/10/2021 18:39:55 Sinus rhythm no longer present Sinus arrhythmia no longer present Myocardial infarct finding still present Electronically Signed On 03-19-2022 6:32:30 EMAIL PRODUCTION CONSULTANT by Rodney Galvin M.D. [id number]
[2022-03-18] MEDS: sodium chloride 0.9% 1,000 ML 30 ML IV (11:08)
--- NOTE | 2022-03-18 11:56 | W.PM.OPSUD ---
Surgery/Procedure H&P Update DATE OF PROCEDURE: March 18, 2022 DATE H&P PERFORMED: 03/15/22 CHANGES TO PREVIOUS DOCUMENTATION: none PREOP DIAGNOSIS: Osteomyelitis right foot PLANNED PROCEDURE: Operation Date: 03/18/22 12:00 Proposed Procedures p Partial first ray resection, right foot 47661,L97.514(Right) - Jovani Huerta DPM
[2022-03-18] MEDS: clindamycin 600 MG/50 ML PREMIX 100 MG IV (12:05)
[2022-03-18] MEDS: lidocaine 2% INJ 20 mL INJECTION (12:30)
[2022-03-18 12:49] VITALS: BP 112/48; PULSE 49; RESP 12; TEMP 36.5; O2SAT 98
--- NOTE | 2022-03-18 12:52 | PM.OP ---
Operative Report Date of procedure: March 18, 2022 Pre-op diagnosis: Preop Diagnosis Osteomyelitis right foot Post-op diagnosis: Osteomyelitis right first metatarsal and tibial and fibular sesamoid, right foot Procedure done: Right first metatarsectomy CPT code 21426 Implants: 3-0 Vicryl, 3-0 nylon Specimens removed/disposition: None, cultures previously taken from previous procedures Pathology: Right first metatarsal sent to pathology for permanent Surgeon: Jovani Huerta D.P.M. Start Up Specialist: Romelia Estimated blood loss: 5 19 IV fluids: None Urine output: None Complications: None Findings: Devitalized bone first metatarsal as well as devitalized tibial and fibular sesamoids right foot. Brief History: Pleasant 81-year-old male with history of extensive peripheral arterial disease with several attempts at revascularization most recently with Dr. Zambrano as in HPI.? Presents with a full-thickness wound with exposed bone right forefoot.? First metatarsal head is fully exposed.? Was able to review MRI done at [facility] last week shows osteomyelitis of the right first metatarsal.? MRI report also shows suspicion for possible osteomyelitis of the right fourth metatarsal, this does not correlate with any area of wound or clinical suspicion of infection at the fourth ray.? Patient is wishing to pursue all efforts to preserve limb and would only like to undergo necessary surgery.? He is not interested in a transmetatarsal potation or below-knee amputation at this time.? Discussed utility of a right first metatarsectomy both risks and benefits were discussed at length.? Specific risks include surgical site dehiscence, delayed healing, new wound formation, altered mechanics, transfer pressure and transfer lesions.? Arterial insufficiency contributing to nonhealing, eschar formation and need for higher level of amputation. Procedure: Under mild sedation the patient was brought to the operating room and remained on the gurney in supine position. A timeout was performed. Anesthesia was then administered by the anesthesia service. Local anesthesia injected by myself consisting of one-to-one mixture 1% lidocaine and 0.5% Marcaine plain in a right White block fashion total of 30 cc utilized. Well-padded pneumatic tourniquet applied to the right high calf. The right lower extremity was then scrubbed, prepped and draped utilizing normal aseptic technique. Attention was then directed to the right foot where a full-thickness wound with first metatarsal head protruding out of the wound was visualized. The first metatarsal head had a gage dusky appearance. A tennis racquet incision down to bone was performed with a #15 blade encompassing the medial aspect of the first metatarsal distally circumferentially around the wound full-thickness and the first metatarsal was sharply freed from its soft tissue and capsular attachments and passed from operative field. The right first metatarsal was sent to pathology as a permanent specimen for gross. The incision was irrigated with copious amounts of sterile saline solution, all bleeders were ligated and cauterized as necessary. Deep tissue including fascia and muscle were reapproximated utilizing 3-0 Vicryl and skin reapproximated utilizing 3-0 nylon. The incision was approximated nicely without tension. The incision was then dressed with Adaptic, sterile 4 x 4, Kerlix, Coban and Lenard wrap without compression. The tourniquet was deflated and a delayed hyperemic response is noted to the right second and third toe distally however this did return with cap refill appreciated at 5 seconds. Patient tolerated the procedure well and was transferred to the PACU with vital signs stable and vascular status intact. Following a period of postoperative monitoring he will be discharged home is to be heel touch only for transfers. Will continue Levaquin which she was prescribed by [facility] for respiratory infection. Patient will follow-up next week in podiatry clinic he is to keep his dressings clean, dry and intact until that visit.
[2022-03-18 12:54] VITALS: BP 118/50; PULSE 53; RESP 16; O2SAT 99
[2022-03-18 12:59] VITALS: BP 125/54; PULSE 51; RESP 18; TEMP 36.2; O2SAT 97
[2022-03-18 13:05] VITALS: BP 121/51; PULSE 49; RESP 16; TEMP 37.1; O2SAT 97
[2022-03-18 13:20] VITALS: BP 140/66; PULSE 52; RESP 16; O2SAT 100
--- NOTE | 2022-03-18 14:15 | ANE.PACU2 ---
Inpatient post-anesthesia follow up: Airway intact: Yes Vital signs: Temperature 98.7 F Pulse Rate 52 Respiratory Rate 16 Blood Pressure 140/66 Pulse Oximetry 100 Oxygen Delivery Me thod Room Air Oxygen Flow Rate Fraction of Inspir ed Oxygen Hydration adequate: Yes Nausea and vomiting: No Pain level: 1 Mental status: Baseline
== END 2022-03-18 13:45 | disposition home or self-care (01) ==
PROVIDERS: Visit Provider Podiatrist Foot & Ankle Surgery
PROC: (CPT 28810; principal; 2022-03-18 12:00)
DX: M86.8X7 Other osteomyelitis, ankle and foot (principal); I25.10 Atherosclerotic heart disease of native coronary artery without angina pectoris; I11.0 Hypertensive heart disease with heart failure; I50.9 Heart failure, unspecified; I73.9 Peripheral vascular disease, unspecified; E78.5 Hyperlipidemia, unspecified; Z79.4 Long term (current) use of insulin; J44.9 Chronic obstructive pulmonary disease, unspecified; E11.42 Type 2 diabetes mellitus with diabetic polyneuropathy; Z87.891 Personal history of nicotine dependence
CPT/HCPCS: 28140; 36416; 82962; 88307; 88311; 93005; J2704; J3010; J3490; J7030

== ENCOUNTER → 2022-03-22 09:00 | Outpatient (BNVA) | payer MEDICARE, SELFPAY | PROVIDERS: Visit Provider Podiatrist Foot & Ankle Surgery | DX: Z98.890 Other specified postprocedural states (principal) | CPT/HCPCS: 99024 ==

== ENCOUNTER → 2022-03-29 15:49 | Outpatient (BNVA) | payer MEDICARE, SELFPAY | PROVIDERS: Visit Provider Podiatrist Foot & Ankle Surgery | DX: E11.621 Type 2 diabetes mellitus with foot ulcer (principal); Z79.4 Long term (current) use of insulin; Z98.890 Other specified postprocedural states; L97.511 Non-pressure chronic ulcer of other part of right foot limited to breakdown of skin; E11.42 Type 2 diabetes mellitus with diabetic polyneuropathy; I73.9 Peripheral vascular disease, unspecified | CPT/HCPCS: 99213 ==

== ENCOUNTER → 2022-04-07 10:29 | Outpatient (BNVA) | payer MEDICARE, SELFPAY | PROVIDERS: Visit Provider Podiatrist Foot & Ankle Surgery | DX: E11.621 Type 2 diabetes mellitus with foot ulcer (principal); L97.511 Non-pressure chronic ulcer of other part of right foot limited to breakdown of skin; E11.42 Type 2 diabetes mellitus with diabetic polyneuropathy; Z79.4 Long term (current) use of insulin; Z98.890 Other specified postprocedural states; I73.9 Peripheral vascular disease, unspecified | CPT/HCPCS: 99214 ==

== ENCOUNTER → 2022-04-21 08:22 | Outpatient (BNVA) | payer MEDICARE, SELFPAY | PROVIDERS: Visit Provider Podiatrist Foot & Ankle Surgery | DX: E11.621 Type 2 diabetes mellitus with foot ulcer (principal); L97.511 Non-pressure chronic ulcer of other part of right foot limited to breakdown of skin; E11.42 Type 2 diabetes mellitus with diabetic polyneuropathy; Z98.890 Other specified postprocedural states; I73.9 Peripheral vascular disease, unspecified; Z79.4 Long term (current) use of insulin | CPT/HCPCS: 99024; 99214 ==

== ENCOUNTER → 2022-05-05 14:57 | Outpatient (BNVA) | payer MEDICARE, SELFPAY | PROVIDERS: Visit Provider Podiatrist Foot & Ankle Surgery | DX: E11.42 Type 2 diabetes mellitus with diabetic polyneuropathy (principal); I73.9 Peripheral vascular disease, unspecified; Z79.4 Long term (current) use of insulin | CPT/HCPCS: 99214 ==

== ENCOUNTER → 2022-05-17 11:21 | Outpatient (BNVA) | payer MEDICARE, SELFPAY | PROVIDERS: Visit Provider Podiatrist Foot & Ankle Surgery | DX: E11.42 Type 2 diabetes mellitus with diabetic polyneuropathy (principal); I73.9 Peripheral vascular disease, unspecified; Z79.4 Long term (current) use of insulin | CPT/HCPCS: 99024; 99214 ==

== ENCOUNTER → 2022-06-02 14:23 | Outpatient (BNVA) | payer MEDICARE, SELFPAY | PROVIDERS: Visit Provider Podiatrist Foot & Ankle Surgery | DX: E11.42 Type 2 diabetes mellitus with diabetic polyneuropathy (principal); I73.9 Peripheral vascular disease, unspecified; Z98.890 Other specified postprocedural states; Z79.4 Long term (current) use of insulin | CPT/HCPCS: 99024; 99214 ==

== ENCOUNTER → 2022-06-21 13:48 | Outpatient (BNVA) | payer MEDICARE, SELFPAY | PROVIDERS: Visit Provider Podiatrist Foot & Ankle Surgery | DX: E11.621 Type 2 diabetes mellitus with foot ulcer (principal); L97.511 Non-pressure chronic ulcer of other part of right foot limited to breakdown of skin; Z79.4 Long term (current) use of insulin; I73.9 Peripheral vascular disease, unspecified | CPT/HCPCS: 99214 ==

== ENCOUNTER 2022-06-24 10:17 | Day surgery (SDC) | payer MEDICARE, SELFPAY ==
[2022-06-23 08:12] VITALS: BMI 21.4
--- NOTE | 2022-06-23 08:22 | ECG_ITS ---
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 Measurements Intervals [place] Rate: 55 P: -10 NC: 288 QRS: 263 QRSD: 143 T: 32 QT: 440 QTc: 422 Interpretive Statements SINUS BRADYCARDIA WITH FIRST DEGREE AV BLOCK RIGHT AXIS DEVIATION [QRS AXIS > 100] RIGHT BUNDLE BRANCH BLOCK [120+ ms QRS DURATION, UPRIGHT V1, 40+ ms S IN I/aVL/V4/V5/V6] POSSIBLE ANTERIOR MYOCARDIAL INFARCTION , OF INDETERMINATE AGE [30 ms Q WAVE IN V3/V4, OR R < 0.2 mV IN V4] Compared to ECG 03/18/2022 11:07:40 Right-axis deviation now present Left-axis deviation no longer present Myocardial infarct finding still present Electronically Signed On 06-23-2022 10:28:29 PROJECT CONTROLS SPECIALIST by Rodney Galvin M.D. [id number]
--- NOTE | 2022-06-23 08:45 | ANES.PREANE2 ---
Pre-Anesthetic Assessment Height/Weight: Height 1.85 m Weight 73.936 kg Preop Diagnosis: Osteomyelitis right foot Operation Date: 06/24/22 12:00 Proposed Procedures p Amputation Transmetatarsal 94982 I96(Right) - oJvani Huerta DPM Familial anesthetic complications: none Social No alcohol and No tobacco former smoker Exam alert, oriented x 3, clear to auscultation bilaterally and regular rate & rhythm Airway Mallampati: Class III Dentition: false Pulmonary Chronic Obstructive Pulmonary Disease CV/HEM Anemia, Coronary Artery Disease, Congestive Heart Failure, Hypertension and Peripheral Vascular Disease States he now does follow-up at [facility] and his most recent EF was now up to 40 to 50% as of approximately 6 months ago 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 1. Subtotally occluded Proximal to mid LAD and severe stenosis of the distal LAD. Patient underwent successful revascularization of the LAD with impella support, orbital arthrectomy and JERI x 1. ? 2. Successful balloon angioplasty of the distal LAD. Recommendations ? * Continue aspirin and Plavix for atleast 1 year. ? * High intensity statin therapy. ? * Guideline directed medical therapy. ? * Outpatient cardiology follow up in 4 weeks. ? * Hold diuretics for now as LVEDP is normal. echo 06/23 CONCLUSIONS ?1. This is a limited echocardiogram with ultrasound enhancing ?agent. ?2.? Mildly dilated left ventricular cavity size. Severely ?decreased left ventricular systolic function. Left ventricular ?ejection fraction is estimated at 25 % visually and 28% by ?modified biplane method.? There is moderate diffuse hypokinesis ?with severe hypokinesis of mid anterolateral, apical lateral, ?mid anteroseptal, apical septal, and apical noriega. Chronic Renal Insufficiency Metabolic Diabetes Mellitus and Hyperlipidemia Anesthetic Plan ASA status: 4 Anesthesia: Choice Risk of > 500 ml blood loss (7ml/kg in children): No Medications/Allergies Home Medications Medication Instructions Recorded Confirmed Last Taken Type albuterol sulfate 90 mcg/actuation 1 puff inhalation Q6H PRN 03/17/20 06/23/22 07/23/20 History aerosol inhaler Shortness Of Breath cholecalciferol (vitamin D3) 100 100 mcg PO DAILY 05/01/20 06/23/22 06/23/22 History mcg (4,000 unit) capsule (Vitamin D3) Diabetic shoes #1 ea 07/01/20 06/21/22 Unknown Rx ascorbic acid (vitamin C) 500 mg 500 mg PO DAILY 01/07/22 06/23/22 06/23/22 History tablet (Vitamin C) aspirin 81 mg tablet,delayed 81 mg PO DAILY 01/07/22 06/23/22 06/23/22 History release atorvastatin 40 mg tablet 40 mg PO BID 01/07/22 06/23/22 06/23/22 History carvedilol 6.25 mg tablet 3.125 mg PO BID 01/07/22 06/23/22 06/23/22 History clopidogrel 75 mg tablet (Plavix) 75 mg PO DAILY 01/07/22 06/23/22 06/23/22 History cyanocobalamin (vitamin B-12) 2,000 mcg PO DAILY 01/07/22 06/23/22 03/17/22 History 2,000 mcg tablet,extended release (Vitamin B-12 ER) ferrous fumarate 55 mg (18 mg 55 mg PO DAILY 01/07/22 06/23/22 06/23/22 History iron) tablet,extended release fluticasone fur. 200 mcg-umeclid 1 inh inhalation DAILY 01/07/22 06/23/22 03/17/22 History 62.5 mcg-vilant 25 mcg inhalat.powder (Trelegy Ellipta) furosemide 20 mg tablet 20 mg PO DAILY 01/07/22 06/23/22 06/22/22 History insulin degludec 200 unit/mL (3 40 unit SUBCUT DAILY 01/07/22 06/23/22 03/16/22 History mL) subcutaneous pen (Tresiba FlexTouch U-200 insulin) isosorbide dinitrate 5 mg tablet 5 mg PO TID 01/07/22 06/23/22 06/23/22 History dapagliflozin 10 mg tablet 10 mg PO DAILY 01/28/22 06/23/22 06/23/22 History (Farxiak) Allergies Allergy/AdvReac Type Severity Reaction Status Date / Time codeine Allergy Unknown Unknown Verified 06/21/22 13:57 [facility] Anesthesia Medical History COPD (chronic obstructive pulmonary disease) Diabetic polyneuropathy associated with type 2 diabetes mellitus History of atrial fibrillation Hypertension Venous insufficiency Surgical History History of foot surgery History of hip surgery Status post bilateral hernia repair Social History Smoking and tobacco status: former smoker Household members: none Marital status: / Data Anesthesia Cardiac Studies: Echocardiogram 06/15/21
[2022-06-24] VITALS (9 sets, daily range): BP systolic 104–152; BP diastolic 55–73; PULSE 50–58; RESP 13–16; TEMP 36.4–37.1; O2SAT 92–100
--- NOTE | 2022-06-24 10:49 | P.ANESUD_ITS ---
Pre-Anesthetic Update Pre-Anesthetic Assessment: Date of Surgery/Procedure: 06/24/22 Preop Meg gnosis: Gangrene right foot Proposed Procedure: Operation Date: 06/24/22 12:00 Proposed Procedures p Amputation Transmetatarsal 86424 I96(Right) - Jovani Huerta DPM Any changes to Pre-Anesthetic Assessment?: No Last Intake: Intake Last Liquid Date 06/23/22 Last Liquid Time 21:00 Last Solid Date 06/23/22 Last Solid Time 21:00 Vitals: Temperature 97.7 F 06/24/22 10:34 Pulse Rate 57 L 06/24/22 10:34 Pulse Rhythm 06/24/22 10:36 Pulse Strength 3+ Normal 06/24/22 10:36 Respiratory Rate 16 06/24/22 10:34 Blood Pressure 144/70 06/24/22 10:34 Blood Pressure Rossana n 94 06/24/22 10:34 Pulse Oximetry 92 06/24/22 10:34 Oxygen Delivery Me thod 06/24/22 10:36 Exam: Pre-Anes Outpt Exam: alert, oriented x 3, clear to auscultation bilaterally and regular rate & rhythm Cardiac Studies: Echocardiogram 06/15/21
[2022-06-24] MEDS: sodium chloride 0.9% 1,000 ML 30 ML IV (10:50)
[2022-06-24 10:54] LABS: Glucose Point of Care 138 mg/dL (70-110)
[2022-06-24 11:35] LABS: Blood Urea Nitrogen 26 mg/dL (8-23); Calcium 9.4 mg/dL (8.5-10.5); Carbon Dioxide 28 mmol/L (22-29); Chloride 107 mmol/L (98-107); Glucose 182 mg/dL (65-115); Osmolality Calculated 305 mOsm/kg (285-295); Sodium 143 mmol/L (136-145)
--- NOTE | 2022-06-24 11:54 | ANES.PROC ---
Anesthesia Procedures Procedure/Date: 06/24/22 Nerve Block ^: Nerve Block 1: Main Anesthesia: general anesthesia Time Out Performed: Yes Consent: requested by attending/covering physician, from patient, from other, risks and benefits reviewed and patient agrees to proceed Nerve block location: popliteal (r) Anesthesia monitors applied: pulse oximetry, EKG, BP cuff and oxygen Nerve block position: supine Anesthetic Used: ropivicaine 0.5% (30 ml) and with decadron (4 mg) Ultrasound used to: recognize landmarks, visualize and ID brachial plexus, in supraclavicular region and visualize and ID interscalene groove Nerve Stimulator Used?: No Interscalene/Femoral BLK: 4 stimuplex 21 g needle used for position and inplane approach, visualize local anesthetic spread and no vascular puncture identified Injection: neg aspiration of heme Patient Tolerated Procedure: well and no complications Complications: none
--- NOTE | 2022-06-24 11:55 | W.PM.OPSUD ---
Surgery/Procedure H&P Update DATE OF PROCEDURE: June 24, 2022 DATE H&P PERFORMED: 06/21/22 CHANGES TO PREVIOUS DOCUMENTATION: none PREOP DIAGNOSIS: Gangrene right foot PLANNED PROCEDURE: Operation Date: 06/24/22 12:00 Proposed Procedures p Amputation Transmetatarsal 62035 I96(Right) - Jovani Huerta DPM
[2022-06-24] MEDS: ceFAZolin 2,000 MG in sodium chloride 0.9% (plus) 50 ML 100 MG IV (12:11)
--- NOTE | 2022-06-24 13:01 | PM.OP ---
Operative Report Date of procedure: June 24, 2022 Pre-op diagnosis: Preop Diagnosis Gangrene right foot Post-op diagnosis: Gangrene right foot Procedure done: Right transmetatarsal amputation. CPT code 42481 Implants: 2-0 Vicryl, 3-0 nylon Pathology: Right forefoot sent to pathology Surgeon: Jovani Huerta D.P.M. Occupational Therapist Aide: Estefania Estimated blood loss: 5 30 IV fluids: None Urine output: None Complications: None Findings: Capillary refill at skin with skin bleeding at amputation margin Brief History: Pleasant 82-year-old diabetic male with peripheral arterial disease history of revascularization within the past 12 months done in [place].? He presents with gangrenous changes to his right second and third toes distally.? There is no proximal lymphangitic streaking.? There is purulence from the right second toe with bogginess of eschar.? Patient is open to surgical intervention, believes that things are getting worse not better and would like to have a definitive level of amputation.? I expressed concern with this, should he undergo transmetatarsal amputation this would be less functional however I am guarded as to his healing potential due to underlying peripheral arterial disease.? His understanding and states he would like to proceed with known risk that this may require higher level amputation such as below-knee amputation or above-knee amputation in ending vascular perfusion and healing potential.? I reviewed at length with the patient, the risks, potential complications, benefits, alternatives, expectations, and typical outcomes associated with the surgery. The risks and potential complications were explained in detail, including but not limited to infection, wound dehiscence or soft tissue complications, bleeding and hematoma, chronic edema, neuritis or nerve damage producing numbness or chronic pain, CRPS, failure to relieve pain or worsening pain, thick / painful / unsightly scar, limited motion / stiffness, malposition, delayed union, malunion, or nonunion, fracture, reaction to implants, anesthetic complications, venous thromboembolism, and deformity recurrence.? I discussed the notion of no regrets with the patient as it pertains to complications and outcomes. The patient seemed to understand the nature of the proposed care and required convalescence. They asked appropriate questions, answered to their satisfaction. They are aware no guarantees can be made as to a satisfactory outcome and they understand there may be other possible unforeseen complications or outcomes not listed here that will be treated accordingly if they arise. There were no written or implied guarantees given to the patient. They gave informed consent to proceed. Procedure: Under mild sedation the patient was brought to the operating room and remained on the gurney in supine position. Timeout was performed. Anesthesia was then administered by the anesthesia service. Local anesthesia was injected by myself consisting of 10 cc at medial ankle for saphenous nerve block. Popliteal block performed to the right lower extremity per anesthesia preoperatively. Well-padded pneumatic tourniquet applied to the right ankle. The right lower extremity was then scrubbed, prepped and draped utilizing normal aseptic technique. Right ankle tourniquet was inflated to 250 mmHg. Attention was directed to the right forefoot, gangrenous changes of the right second and third toes appreciated. A fishmouth incision was performed full-thickness encompassing the right forefoot. The metatarsals 1 through 5 were transected utilizing sagittal saw at their metaphyseal level from medial to lateral maintaining the metatarsal parabola. The right forefoot was disarticulated through the osteotomy both dorsally and plantarly maintaining a long plantar flap. Right forefoot was then passed from the operative field and sent to pathology for gross review. Bleeders were ligated and cauterized as necessary. Extensor and flexor tendons were transected under traction. Debulking of redundant skin was then performed with sharp remodeling utilizing pickups and a 10 blade. Capillary refill at skin margins were appreciated as well as skin bleeding. Plantar flap was then closed dorsally utilizing 2-0 Vicryl to reduce cavernous areas at the myofascial layer. Skin closed utilizing 3-0 nylon. Incision was then dressed with Adaptic, sterile 4 x 4, Kerlix and Lenard wrap, Burciaga splint was then applied. Tourniquet was deflated and a prompt hyperemic response was noted to the amputation site of the right foot. Patient tolerated the procedure and anesthesia well and was transferred to the PACU with vital signs stable and vascular status intact. Following a period of postoperative monitoring he will be discharged home, is to remain strict nonweightbearing to the right foot and elevate right foot at all times while resting. Was given at home care instructions as well as postoperative follow-up to be seen in podiatry clinic next week for his first dressing change.
--- NOTE | 2022-06-24 13:03 | XR_ITS ---
WS: [id number] Exam: XR foot RT 2V [id number] Date/Time of Exam: 06/24/2022 1:10 PM Reason For Exam: post op Comparison 03/02/2022. Forefoot amputation noted with the proximal second third fourth and fifth metatarsal remaining. A pos terior fiberglass splint is noted. Vascular calcifications about the foot and ankle. XR/XR foot RT 2V [id number] IMPRESSION: 1. Forefoot amputation as described above.
--- NOTE | 2022-06-24 13:34 | ANE.PACU2 ---
Inpatient post-anesthesia follow up: Airway intact: Yes Vital signs: Temperature 98.6 F Pulse Rate 53 Respiratory Rate 14 Blood Pressure 125/57 Pulse Oximetry 98 Oxygen Delivery Me thod Room Air Oxygen Flow Rate 5 Fraction of Inspir ed Oxygen Hydration adequate: Yes Nausea and vomiting: No Pain level: 1 Mental status: Baseline
== END 2022-06-24 14:14 | disposition home or self-care (01) ==
PROVIDERS: Anesthesiology; PCP Family Medicine; Visit Provider Podiatrist Foot & Ankle Surgery
PROC: (CPT 28805; principal; 2022-06-24 12:00)
DX: I96 Gangrene, not elsewhere classified (principal); Z87.891 Personal history of nicotine dependence; J44.9 Chronic obstructive pulmonary disease, unspecified; I25.10 Atherosclerotic heart disease of native coronary artery without angina pectoris; I11.0 Hypertensive heart disease with heart failure; I50.9 Heart failure, unspecified; E11.9 Type 2 diabetes mellitus without complications; E78.5 Hyperlipidemia, unspecified; Z79.82 Long term (current) use of aspirin; Z79.4 Long term (current) use of insulin; E11.42 Type 2 diabetes mellitus with diabetic polyneuropathy; I48.91 Unspecified atrial fibrillation
CPT/HCPCS: 28805; 36415; 36416; 73620; 80048; 82962; 88307; 88311; 93005; J0690; J1100; J2405; J2704; J2795; J3010; J3490; J7030

== ENCOUNTER 2022-06-28 16:55 | Outpatient (CLI) | payer MEDICARE, SELFPAY ==
[2022-06-28 17:13] LABS: Basophils # 0.1 10^3/uL (0.0-0.1); Basophils % 0.6 %; Eosinophils # 0.2 10^3/uL (0.0-0.8); Eosinophils % 1.7 %; Hematocrit 32.7 % (42.0-52.0); Hemoglobin 9.6 g/dL (11.7-16.6); Lymphocytes # 2.1 10^3/uL (0.8-4.8); Lymphocytes % 17.8 %; Mean Corpuscular HGB Conc 29.4 g/dL (30.0-36.0); Mean Corpuscular Hemoglobin 24.4 pg (28.0-34.0); Mean Platelet Volume 9.9 fL (7.4-10.4); Monocytes # 1.1 10^3/uL (0.2-0.9); Monocytes % 9.6 %; Neutrophils # 8.18 10^3/uL (1.8-7.7); Nucleated Red Blood Cells % 0 %; Platelet Count 316 10^3/cmm (130-400); Red Blood Count 3.94 10^6/uL (4.1-5.3); Red Cell Distribution Width 15.4 % (12.1-15.1); White Blood Count 11.7 10^3/uL (4.0-10.0)
[2022-06-28 17:33] LABS: Estmated Average Glucose 140; Hemoglobin A1C 6.5 % (4.0-6.0)
[2022-06-28 17:42] LABS: Alanine Aminotransferase 9 U/L (0-41); Albumin Level 2.9 g/dL (3.5-5.2); Alkaline Phosphatase 110 U/L (40-130); Anion Gap 15.3 (5-19); Aspartate Amino Transferase 12 U/L (0-40); Blood Urea Nitrogen 19 mg/dL (8-23); Calcium 8.6 mg/dL (8.5-10.5); Carbon Dioxide 25 mmol/L (22-29); Chloride 103 mmol/L (98-107); Globulin 2.7 g/dL (1.3-4.6); Glucose 233 mg/dL (65-115); Osmolality Calculated 298 mOsm/kg (285-295); Potassium 4.3 mmol/L (3.5-5.1); Sodium 139 mmol/L (136-145); Thyroid Stimulating Hormone 2.75 uIU/mL (0.27-4.20); Total Bilirubin 0.2 mg/dL (0.15-1.2); Total Protein 5.6 g/dL (6.6-8.7)
== END 2022-06-28 16:56 | disposition home or self-care (01) ==
LOC: LAB 16:57
PROVIDERS: PCP Family Medicine; Visit Provider Nurse Practitioner Family
DX: E11.9 Type 2 diabetes mellitus without complications (principal); Z13.29 Encounter for screening for other suspected endocrine disorder
CPT/HCPCS: 80053; 83036; 84443; 85025

== ENCOUNTER → 2022-06-30 14:16 | Outpatient (BNVA) | payer MEDICARE, SELFPAY | PROVIDERS: PCP Family Medicine; Visit Provider Podiatrist Foot & Ankle Surgery | DX: I96 Gangrene, not elsewhere classified (principal); E11.621 Type 2 diabetes mellitus with foot ulcer; L97.514 Non-pressure chronic ulcer of other part of right foot with necrosis of bone; E11.42 Type 2 diabetes mellitus with diabetic polyneuropathy; Z89.431 Acquired absence of right foot | CPT/HCPCS: 29515; 99024 ==

== ENCOUNTER → 2022-07-06 15:23 | Outpatient (BNVA) | payer MEDICARE, SELFPAY | PROVIDERS: PCP Family Medicine; Visit Provider Podiatrist Foot & Ankle Surgery | DX: Z48.89 Encounter for other specified surgical aftercare (principal); E11.621 Type 2 diabetes mellitus with foot ulcer; Z79.4 Long term (current) use of insulin; I96 Gangrene, not elsewhere classified; L97.514 Non-pressure chronic ulcer of other part of right foot with necrosis of bone; E11.42 Type 2 diabetes mellitus with diabetic polyneuropathy; Z89.431 Acquired absence of right foot | CPT/HCPCS: 29515; 99024 ==

== ENCOUNTER → 2022-07-14 08:08 | Outpatient (BNVA) | payer MEDICARE, SELFPAY | PROVIDERS: PCP Family Medicine; Visit Provider Podiatrist Foot & Ankle Surgery | DX: Z98.890 Other specified postprocedural states (principal); I96 Gangrene, not elsewhere classified; L97.514 Non-pressure chronic ulcer of other part of right foot with necrosis of bone; E11.42 Type 2 diabetes mellitus with diabetic polyneuropathy; Z89.431 Acquired absence of right foot; T87.81 Dehiscence of amputation stump; E11.621 Type 2 diabetes mellitus with foot ulcer; Y83.8 Other surgical procedures as the cause of abnormal reaction of the patient, or of later complication, without mention of misadventure at the time of the procedure; Z79.4 Long term (current) use of insulin | CPT/HCPCS: 99213 ==

== ENCOUNTER → 2022-07-22 07:51 | Outpatient (BNVA) | payer MEDICARE, SELFPAY | PROVIDERS: PCP Family Medicine; Visit Provider Podiatrist Foot & Ankle Surgery | DX: I96 Gangrene, not elsewhere classified (principal); E11.621 Type 2 diabetes mellitus with foot ulcer; L97.514 Non-pressure chronic ulcer of other part of right foot with necrosis of bone; E11.42 Type 2 diabetes mellitus with diabetic polyneuropathy; Z89.431 Acquired absence of right foot; T87.81 Dehiscence of amputation stump; Y83.8 Other surgical procedures as the cause of abnormal reaction of the patient, or of later complication, without mention of misadventure at the time of the procedure; Z79.4 Long term (current) use of insulin | CPT/HCPCS: 99024 ==

== ENCOUNTER → 2022-08-04 08:15 | Outpatient (BNVA) | payer MEDICARE, SELFPAY | PROVIDERS: PCP Family Medicine; Visit Provider Podiatrist Foot & Ankle Surgery | DX: Z98.890 Other specified postprocedural states (principal); I96 Gangrene, not elsewhere classified; L97.514 Non-pressure chronic ulcer of other part of right foot with necrosis of bone; E11.42 Type 2 diabetes mellitus with diabetic polyneuropathy; Z89.431 Acquired absence of right foot; T87.81 Dehiscence of amputation stump; Y83.8 Other surgical procedures as the cause of abnormal reaction of the patient, or of later complication, without mention of misadventure at the time of the procedure; Z79.4 Long term (current) use of insulin | CPT/HCPCS: 99213 ==

== ENCOUNTER → 2022-08-23 09:30 | Outpatient (BNVA) | payer MEDICARE, SELFPAY | PROVIDERS: PCP Family Medicine; Visit Provider Podiatrist Foot & Ankle Surgery | DX: I73.9 Peripheral vascular disease, unspecified (principal); E11.42 Type 2 diabetes mellitus with diabetic polyneuropathy; Z89.431 Acquired absence of right foot; L97.412 Non-pressure chronic ulcer of right heel and midfoot with fat layer exposed; Z89.412 Acquired absence of left great toe; E11.621 Type 2 diabetes mellitus with foot ulcer; Z79.4 Long term (current) use of insulin | CPT/HCPCS: 99214 ==

== ENCOUNTER → 2022-09-13 10:33 | Outpatient (BNVA) | payer MEDICARE, SELFPAY | PROVIDERS: PCP Family Medicine; Visit Provider Podiatrist Foot & Ankle Surgery | DX: I73.9 Peripheral vascular disease, unspecified (principal); E11.42 Type 2 diabetes mellitus with diabetic polyneuropathy; Z89.431 Acquired absence of right foot; Z89.412 Acquired absence of left great toe; Z79.4 Long term (current) use of insulin | CPT/HCPCS: 99213 ==

== ENCOUNTER → 2022-11-30 09:18 | Outpatient (BNVA) | payer MEDICARE, SELFPAY | PROVIDERS: PCP Family Medicine; Visit Provider Podiatrist Foot & Ankle Surgery | DX: E11.42 Type 2 diabetes mellitus with diabetic polyneuropathy (principal); Z89.431 Acquired absence of right foot; I73.9 Peripheral vascular disease, unspecified; Z89.412 Acquired absence of left great toe; Z79.4 Long term (current) use of insulin | CPT/HCPCS: 99213 ==